=== PATIENT | female | born 1990 | race Caucasian/White ===

== ENCOUNTER 2016-08-11 16:41 | Outpatient (CLI) | payer OTHER ==
[2016-08-11 17:48] VITALS: BP 138/70; PULSE 99; RESP 20; TEMP 36.4
--- NOTE | 2016-08-13 08:40 | P.MSEPDOC ---
Presenting Problems - Arrival Data Date of Arrival on Unit: 08/11/16 Time of Arrival on Unit: 16:41 Mode of Transport: Wheelchair - Complaint OB-Reason for Admission/Chief Complaint: Possible Onset of Labor, Headache Medical History - Information : 2 Para: 1 Term: 1 : 0 Abortions: Spontaneous or Elective: 0 Number of Living Children: 1 - Gestational Age Expected Date of Delivery: 09/11/16 Gestational Age by MIREILLE (wks/days): 35 Weeks and 6 Days Review of Systems - Review of Systems Constitutional: No problems Breast: No problems ENT: No problems Cardiovascular: No problems Respiratory: No problems Gastrointestinal: No problems Genitourinary: No problems Musculoskeletal: No problems Neurological: No problems Skin: No problems Vital Signs - Temperature Temperature: 36.4 F Temperature Source: Skin - Pulse Brachial Pulse Rate: 99 - Respirations Respiratory Rate: 20 Oxygen Delivery Method: Room Air O2 Sat by Pulse Oximetry: 98 - Blood Pressure Right Arm Blood Pressure: 138/70 Blood Pressure Mean: 92 Blood Pressure Source: Automatic Cuff Medical Screen Scoring (Pre) - Cervical Exam Dilation: 0 cm = 0 Membranes: Intact - Uterine Contractions Frequency: > 5 minutes apart = 1 Duration: N/A Intensity: N/A - Maternal Vital Signs Maternal Temperature: N/A Maternal Blood Pressure: N/A Signs of Preeclampsia: Headache = 1 Maternal Respirations: N/A - Maternal Trauma Maternal Trauma: N/A - Assessment Baseline FHR: 140 Heart Rate - NICHD Category: Category I (Normal) = 0 - Total Score Total Score (Pre): 2 - Level of Risk Level of Risk: Low (0-5) Medical Screen Scoring (Post) - Cervical Exam Dilation: 0 cm = 0 Membranes: Intact - Uterine Contractions Frequency: > 5 minutes apart = 1 - Maternal Vital Signs Maternal Temperature: N/A Maternal Blood Pressure: N/A Signs of Preeclampsia: Headache = 1 Maternal Respirations: N/A - Maternal Trauma Maternal Trauma: N/A - Assessment Heart Rate - NICHD Category: Category I (Normal) = 0 NST: Reactive - Total Score Total Score (Post): 2 - Post Treatment Level of Risk Post Treatment Level of Risk: Low (0-5) Physician Notification (Post) - Physician Notified Physician Notified Date: 08/11/16 Physician Notified Time: 18:30 Physician/Practitioner Notified:: Dr Pretty Spoke With: Dr Pretty New Order Received: (August discharge home with follow up this week with Dr Aguilera) - Notification Comment Comment: Pt encouraged to hydrate and eat something- states hasn't eaten anything but a cucumber all day Disposition - Disposition OB Disposition: Triage, Discharge to home, Written follow up instructions reviewed Discharge Date: 08/11/16 Discharge Time: 18:50 I agree with the RN Medical Screening Exam: Yes Risk & Benefit of care provided described in d/c instruction: Yes Diagnosis: FALSE LABOR BEFORE 37 COMPLETED WEEKS OF GEST, THIRD TRI
== END 2016-08-11 18:50 | disposition home or self-care (01) ==
LOC: FBPOP 16:41
PROVIDERS: ATTEND Obstetrics & Gynecology
DX: O47.03 False labor before 37 completed weeks of gestation, third trimester (principal); Z3A.35 35 weeks gestation of pregnancy
CPT/HCPCS: 59025; G0463; 99213

== ENCOUNTER 2016-10-09 00:43 | Emergency (ER) | payer OTHER ==
[2016-10-09 00:47] VITALS: RESP 18
--- NOTE | 2016-10-09 01:22 | ED ---
General Adult HPI - General Chief complaint: Urogenital Stated complaint: back pain Time Seen by Provider: 10/09/16 01:01 Source: patient, RN notes reviewed Mode of arrival: ambulatory Limitations: no limitations - History of Present Illness Initial comments: this a 26-year-old female presents emergency Department chief complaint of urinary frequency, dysuria and low back pain. Patient states this seemed start on Friday and worsen. Patient states prior to that she was being treated for partial vaginosis which was diagnosed by her LABORER on her 6 week follow-up. Patient's had no fever, chills. Patient has a nausea, vomiting diarrhea constipation. Patient states she has had recurrent urinary tract infections and seems somewhat at this time. - Related Data Previous Rx's Medication Instructions Recorded Cephalexin [Keflex] 500 mg PO Q8HR #21 cap 10/09/16 Allergies Allergy/AdvReac Type Severity Reaction Status Date / Time No Known Allergies Allergy Verified 10/09/16 00:47 Review of Systems ROS Statement: Those systems with pertinent positive or pertinent negative responses have been documented in the HPI. ROS Other: All systems not noted in ROS Statement are negative. Past Medical History Past Medical History: No Reported History History of Any Multi-Drug Resistant Organisms: None Reported Past Surgical History: Cholecystectomy Past Psychological History: Anxiety Smoking Status: Former smoker General Exam Limitations: no limitations General appearance: alert, in no apparent distress Respiratory exam: Present: normal lung sounds bilaterally. Absent: respiratory distress, wheezes, rales, rhonchi, stridor Cardiovascular Exam: Present: regular rate, normal rhythm, normal heart sounds. Absent: systolic murmur, diastolic murmur, rubs, gallop, clicks GI/Abdominal exam: Present: soft, normal bowel sounds. Absent: distended, tenderness, guarding, rebound, rigid Back exam: Absent: CVA tenderness (R), CVA tenderness (L) Neurological exam: Present: alert, oriented X3, CN II-XII intact Skin exam: Present: warm, dry, intact, normal color. Absent: rash Course Vital Signs 10/09/16 00:45 Temperature 98.0 F Pulse Rate 83 Respiratory 18 Rate Blood Pressure 116/79 O2 Sat by Pulse 95 Oximetry Medical Decision Making - Medical Decision Making 26-year-old female presented emergency department for urinary frequency dysuria. Patient has UTI. Patient was placed on Keflex return parameters were discussed. Urine culture was performed. - Lab Data Lab Results 10/09/16 10/09/16 Range/Units 00:49 00:49 Urine Color Yellow Urine Appearance Turbid H (Clear) Urine pH 6.0 (5.0-8.0) Ur Specific [place] 1.013 (1.001-1.035) Urine Protein 2+ H (Negative) Urine Glucose (UA) Negative (Negative) Urine Ketones Negative (Negative) Urine Blood Moderate H (Negative) Urine Nitrite Negative (Negative) Urine Bilirubin Negative (Negative) Urine Urobilinogen <2.0 (<2.0) mg/dL Ur Leukocyte Esterase Large H (Negative) Urine RBC 73 H (0-5) /hpf Urine WBC >182 H (0-5) /hpf Urine WBC Clumps Few H (None) /hpf Ur Squamous Epith Cells 5 H (0-4) /hpf Urine Bacteria Rare H (None) /hpf Urine HCG, Qual Not Detected (Not Detectd) Disposition Clinical Impression: Urinary tract infection Disposition: HOME SELF-CARE Condition: Stable Instructions: Urinary Tract Infection in Women (ED) Additional Instructions: Please return to the Emergency Department if symptoms worsen or any other concerns. Prescriptions: Cephalexin [Keflex] 500 mg PO Q8HR #21 cap Referrals: None,Stated [Primary Care Provider] - 1-2 days Time of Disposition: 01:42
[2016-10-09 01:31] LABS: Appearance,Urine Turbid (Clear); Bacteria,Urine Rare /hpf; Bilirubin,Urine Negative (Negative); Glucose,Urine (UA) Negative (Negative); Ketones,Urine Negative (Negative); Leukocyte Esterase,Urine Large (Negative); Nitrite,Urine Negative (Negative); Particle Count 5304; Protein,Urine 2+ (Negative); RBC,Urine 73 /hpf (0-5); Specific Gravity,Urine 1.013 (1.001-1.035); Squamous Epithelial Cell,Urine 5 /hpf (0-4); UA Billing (MACRO vs. MICRO) MICRO; Urobilinogen,Urine <2.0 mg/dL (<2.0); WBC,Urine >182 /hpf (0-5)
[2016-10-09] MEDS ORDERED: CEPHALEXIN 500 MG CAP PO STA (01:43)
[2016-10-09 02:05] VITALS: BP 113/71; PULSE 82; TEMP 98.8
== END 2016-10-09 02:05 | disposition home or self-care (01) ==
LOC: EC 00:43
DX: N39.0 Urinary tract infection, site not specified (principal); K59.00 Constipation, unspecified; R11.2 Nausea with vomiting, unspecified; R19.7 Diarrhea, unspecified; Z87.891 Personal history of nicotine dependence
CPT/HCPCS: 81001; 81025; 87077; 87086; 87186; 99283

== ENCOUNTER 2017-11-26 21:14 | Emergency (ER) | payer OTHER ==
--- NOTE | 2017-11-26 22:46 | ED ---
General Adult HPI - General Chief complaint: Allergic Reaction Stated complaint: bee sting Time Seen by Provider: 11/26/17 21:47 Source: patient, RN notes reviewed Mode of arrival: ambulatory Limitations: no limitations - History of Present Illness Initial comments: 27-year-old female presents to the emergency department for a chief complaint of bug bite 2 days. Patient states she was stung by a bee 2 days ago on her left fourth digit. Patient states she did experience shortness of breath for about 20 minutes last night but took a Benadryl which resolved his shortness of breath. Patient has not experienced any other shortness of breath since that time. Patient states she came to the emergency department because she has erythema of the left fourth digit. Patient states she thinks it is getting infected. Patient denies fevers or chills at home. Patient states it is somewhat painful but she can move her hand. Patient has no other complaints at this time including shortness of breath, chest pain, abdominal pain, nausea or vomiting, headache, or visual changes. - Related Data Previous Rx's Medication Instructions Recorded Cephalexin [Keflex] 500 mg PO Q8HR #21 cap 10/09/ Cephalexin [Keflex] 500 mg PO Q6H 10 Days cap 11/26/17 Allergies Allergy/AdvReac Type Severity Reaction Status Date / Time No Known Allergies Allergy Verified 11/26/17 21:28 Review of Systems ROS Statement: Those systems with pertinent positive or pertinent negative responses have been documented in the HPI. ROS Other: All systems not noted in ROS Statement are negative. Past Medical History Past Medical History: No Reported History Additional Past Medical History / Comment(s): miscarriage History of Any Multi-Drug Resistant Organisms: None Reported Past Surgical History: Cholecystectomy Past Psychological History: Anxiety Smoking Status: Former smoker General Exam Limitations: no limitations General appearance: alert, in no apparent distress Head exam: Present: atraumatic, normocephalic, normal inspection Eye exam: Present: normal appearance. Absent: scleral icterus, conjunctival injection ENT exam: Present: normal exam, mucous membranes moist Neck exam: Present: normal inspection. Absent: tenderness, meningismus, lymphadenopathy Respiratory exam: Present: normal lung sounds bilaterally. Absent: respiratory distress, wheezes, rales, rhonchi, stridor Cardiovascular Exam: Present: regular rate, normal rhythm, normal heart sounds. Absent: systolic murmur, diastolic murmur, rubs, gallop, clicks Extremities exam: Present: tenderness (Mild tenderness over the dorsal left fourth digit), normal capillary refill (Capillary refill less than 2 seconds and radial pulse 2+ in the left upper extremity), other (Patient has erythema of the dorsal left hand fourth digit extending about 2 cm past the MCP joint both distally and proximally. No abscess is noted. No streaking redness.). Absent: full ROM (Patient has about 45 flexion of the digits in the left hand, full extension.) Course Vital Signs 11/26/17 21:25 Temperature 98.3 F Pulse Rate 80 Respiratory 16 Rate Blood Pressure 120/84 O2 Sat by Pulse 100 Oximetry Medical Decision Making - Medical Decision Making 27-year-old female presents to the emergency department for a chief complaint of erythema of the left fourth digit x 1 day. Patient was stung by a bee 2 days ago and noticed the redness today. On exam there is erythema of the fourth left MCP area. No streaking redness. Erythema is likely a cellulitis. Patient is able to flex to 45 degrees and full extension. No tenderness of the flexor tendons or evidence of tenosynovitis. Patient will be treated with Keflex. Area was marked with a marker. She is to follow up with primary care in 1-2 days. She is to return to the emergency Department if redness continues to spread which she is aware of. Disposition Clinical Impression: Cellulitis and abscess of finger, unspecified Disposition: HOME SELF-CARE Condition: Good Instructions: Cellulitis (ED) Prescriptions: Cephalexin [Keflex] 500 mg PO Q6H 10 Days cap Is patient prescribed a controlled substance at d/c from ED?: No Referrals: Paulie Guerrero MD [STAFF PHYSICIAN] - 1-2 days Time of Disposition: 22:45
[2017-11-26 23:40] VITALS: BP 126/78; PULSE 85; RESP 20; TEMP 98.1
== END 2017-11-26 23:40 | disposition home or self-care (01) ==
LOC: EC 21:14
DX: T63.441A Toxic effect of venom of bees, accidental (unintentional), initial encounter (principal); L03.012 Cellulitis of left finger; L02.512 Cutaneous abscess of left hand; Z87.891 Personal history of nicotine dependence
CPT/HCPCS: 99283

== ENCOUNTER 2018-09-02 17:12 | Emergency (ER) | payer OTHER ==
[2018-09-02 18:11] VITALS: RESP 16
[2018-09-02] MEDS ORDERED: SODIUM CHLORIDE 0.9% 1,000 ML IV STA (19:11)
[2018-09-02] MEDS ORDERED: METOCLOPRAMIDE 5 MG/ML 2 ML VIAL IVP STA (19:11)
[2018-09-02] MEDS ORDERED: diphenhydrAMINE 50 MG/ML 1 ML VIAL IVP STA (19:11)
--- NOTE | 2018-09-02 19:36 | ED ---
Nausea/Vomiting/Diarrhea HPI - General Chief complaint: Nausea/Vomiting/Diarrhea Stated complaint: Vomitng x3 days Time Seen by Provider: 09/02/18 18:30 Source: patient Mode of arrival: ambulatory Limitations: no limitations - History of Present Illness Initial comments: 28-year-old female patient presents to the emergency department today for a 3 day history of nausea and vomiting. Patient states that she has been feeling shaky, fatigued, and quite nauseous. Patient states she did have an episode of vomiting in the morning. States she hasn't eaten or drank anything all day. Denies any abdominal pain or diarrhea. Patient is concerned she may be . She is , with one miscarriage last year. She denies any abnormal vaginal bleeding or discharge. 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 Patient does admit that she stopped taking her Abilify and Valium one week ago for possibility of is unsure she may be having withdrawal symptoms from this. She denies any fever or chills. Denies any sick contacts or recent travel. Patient denies any recent rash, shortness breath, chest pain, back pain, numbness, tingling, dizziness, weakness, hematuria, dysuria, urinary urgency, urinary frequency, headache, visual changes, or any other complaints. - Related Data Previous Rx's Medication Instructions Recorded Cephalexin [Keflex] 500 mg PO Q8HR #21 cap 10/09/16 Cephalexin [Keflex] 500 mg PO Q6H 10 Days cap 11/26/17 Cephalexin [Keflex] 500 mg PO Q6HR 3 Days #12 cap 09/02/18 Metoclopramide [Reglan] 10 mg PO Q8H PRN #10 tab 09/02/18 Pnv No.95/Ferrous Fum/Folic AC 1 each PO DAILY #30 tablet 09/02/18 [ Multivitamin Tablet] Allergies Allergy/AdvReac Type Severity Reaction Status Date / Time No Known Allergies Allergy Verified 09/02/18 18:11 Review of Systems ROS Statement: Those systems with pertinent positive or pertinent negative responses have been documented in the HPI. ROS Other: All systems not noted in ROS Statement are negative. Past Medical History Past Medical History: No Reported History Additional Past Medical History / Comment(s): miscarriage History of Any Multi-Drug Resistant Organisms: None Reported Past Surgical History: Cholecystectomy Past Psychological History: Anxiety Smoking Status: Former smoker General Exam Limitations: no limitations General appearance: alert, in no apparent distress, other (Physical well- developed, well-nourished adult female patient in no acute distress. Vital signs upon presentation are temperature 98.9F, pulse 86, respirations 16, blood pressure 120/84, pulse ox 98% on room air.) Eye exam: Present: normal appearance, PERRL, EOMI. Absent: scleral icterus, conjunctival injection, periorbital swelling ENT exam: Present: normal exam, normal oropharynx, mucous membranes moist Respiratory exam: Present: normal lung sounds bilaterally. Absent: respiratory distress, wheezes, rales, rhonchi, stridor Cardiovascular Exam: Present: regular rate, normal rhythm, normal heart sounds. Absent: systolic murmur, diastolic murmur, rubs, gallop, clicks GI/Abdominal exam: Present: soft, normal bowel sounds. Absent: distended, tenderness, guarding, rebound, rigid Neurological exam: Present: alert, oriented X3, CN II-XII intact Psychiatric exam: Present: normal affect, normal mood Skin exam: Present: warm, dry, intact, normal color. Absent: rash Course Vital Signs 09/02/18 18:08 Temperature 98.9 F Pulse Rate 86 Respiratory 16 Rate Blood Pressure 120/84 O2 Sat by Pulse 98 Oximetry Medical Decision Making - Medical Decision Making 38-year-old female patient presents to the emergency department today for evaluation of nausea and vomiting for the last 3 days. Physical examination reveals a soft nontender abdomen. Vital signs are stable. Labs reviewed and were unremarkable. Patient did test positive for . There is bacteria in the urine. She'll be treated with Keflex for 3 days. She'll be given vitamins and Reglan for symptom relief. She is instructed to start with clear liquid diet and advance as tolerated. She is instructed to follow-up with [facility] for recheck as soon as possible, she does have an appointment at [facility] on 09/15/2018. She denies any vaginal bleeding or discharge. Did add an hCG Quant just for documentation purposes. We did discuss return parameters in detail. She verbalizes understanding and agrees with this plan. - Lab Data Result diagrams: 09/02/18 20:03 09/02/18 20:03 Lab Results 09/02/18 09/02/18 09/02/18 Range/Units 20:03 20:03 20:03 WBC 9.0 (3.8-10.6) k/uL RBC 4.91 (3.80-5.40) m/uL Hgb 14.3 (11.4-16.0) gm/dL Hct 43.0 (34.0-46.0) % MCV 87.6 (80.0-100.0) fL MCH 29.2 (25.0-35.0) pg MCHC 33.3 (31.0-37.0) g/dL RDW 13.0 (11.5-15.5) % Plt Count 217 (150-450) k/uL Neutrophils % 67 % Lymphocytes % 26 % Monocytes % 4 % Eosinophils % 2 % Basophils % 0 % Neutrophils # 6.0 (1.3-7.7) k/uL Lymphocytes # 2.4 (1.0-4.8) k/uL Monocytes # 0.4 (0-1.0) k/uL Eosinophils # 0.1 (0-0.7) k/uL Basophils # 0.0 (0-0.2) k/uL Sodium 138 (137-145) mmol/L Potassium 4.4 (3.5-5.1) mmol/L Chloride 106 (98-107) mmol/L Carbon Dioxide 20 L (22-30) mmol/L Anion Gap 12 mmol/L BUN 13 (7-17) mg/dL Creatinine 0.52 (0.52-1.04) mg/dL Est GFR (CKD-EPI)AfAm >90 (>60 ml/min/1.73 sqM) Est GFR (CKD-EPI)NonAf >90 (>60 ml/min/1.73 sqM) Glucose 76 (74-99) mg/dL Calcium 10.1 (8.4-10.2) mg/dL Total Bilirubin 1.1 (0.2-1.3) mg/dL AST 24 (14-36) U/L ALT 10 (9-52) U/L Alkaline Phosphatase 54 (38-126) U/L Total Protein 8.0 (6.3-8.2) g/dL Albumin 5.0 (3.5-5.0) g/dL Amylase 81 (30-110) U/L Lipase 230 (23-300) U/L Urine Color Yellow Urine Appearance Cloudy H (Clear) Urine pH 6.0 (5.0-8.0) Ur Specific [place] 1.022 (1.001-1.035) Urine Protein Negative (Negative) Urine Glucose (UA) Negative (Negative) Urine Ketones 2+ H (Negative) Urine Blood Negative (Negative) Urine Nitrite Negative (Negative) Urine Bilirubin Negative (Negative) Urine Urobilinogen <2.0 (<2.0) mg/dL Ur Leukocyte Esterase Large H (Negative) Urine RBC <1 (0-5) /hpf Urine WBC 3 (0-5) /hpf Ur Squamous Epith Cells 8 H (0-4) /hpf Urine Bacteria Moderate H (None) /hpf Urine Mucus Rare H (None) /hpf Urine HCG, Qual (Not Detectd) 09/02/18 Range/Units 20:03 WBC (3.8-10.6) k/uL RBC (3.80-5.40) m/uL Hgb (11.4-16.0) gm/dL Hct (34.0-46.0) % MCV (80.0-100.0) fL MCH (25.0-35.0) pg MCHC (31.0-37.0) g/dL RDW (11.5-15.5) % Plt Count (150-450) k/uL Neutrophils % % Lymphocytes % % Monocytes % % Eosinophils % % Basophils % % Neutrophils # (1.3-7.7) k/uL Lymphocytes # (1.0-4.8) k/uL Monocytes # (0-1.0) k/uL Eosinophils # (0-0.7) k/uL Basophils # (0-0.2) k/uL Sodium (137-145) mmol/L Potassium (3.5-5.1) mmol/L Chloride (98-107) mmol/L Carbon Dioxide (22-30) mmol/L Anion Gap mmol/L BUN (7-17) mg/dL Creatinine (0.52-1.04) mg/dL Est GFR (CKD-EPI)AfAm (>60 ml/min/1.73 sqM) Est GFR (CKD-EPI)NonAf (>60 ml/min/1.73 sqM) Glucose (74-99) mg/dL Calcium (8.4-10.2) mg/dL Total Bilirubin (0.2-1.3) mg/dL AST (14-36) U/L ALT (9-52) U/L Alkaline Phosphatase (38-126) U/L Total Protein (6.3-8.2) g/dL Albumin (3.5-5.0) g/dL Amylase (30-110) U/L Lipase (23-300) U/L Urine Color Urine Appearance (Clear) Urine pH (5.0-8.0) Ur Specific [place] (1.001-1.035) Urine Protein (Negative) Urine Glucose (UA) (Negative) Urine Ketones (Negative) Urine Blood (Negative) Urine Nitrite (Negative) Urine Bilirubin (Negative) Urine Urobilinogen (<2.0) mg/dL Ur Leukocyte Esterase (Negative) Urine RBC (0-5) /hpf Urine WBC (0-5) /hpf Ur Squamous Epith Cells (0-4) /hpf Urine Bacteria (None) /hpf Urine Mucus (None) /hpf Urine HCG, Qual Detected (Not Detectd) Disposition Clinical Impression: , Vomiting Disposition: HOME SELF-CARE Condition: Good Instructions (If sedation given, give patient instructions): (ED), Acute Nausea and Vomiting (ED) Additional Instructions: Increase fluids. Take medications as directed. Complete antibiotic prescription in full to clear bacteria from the urine. Follow-up with [facility]QUIPMENT [facility]ST[facility] for recheck as soon as possible. Return to the emergency department immediately for any new, worsening, or concerning symptoms. Prescriptions: Cephalexin [Keflex] 500 mg PO Q6HR 3 Days #12 cap Pnv No.95/Ferrous Fum/Folic AC [ Multivitamin Tablet] 1 each PO DAILY #30 tablet Metoclopramide [Reglan] 10 mg PO Q8H PRN #10 tab PRN Reason: Vomiting Is patient prescribed a controlled substance at d/c from ED?: No Referrals: Grupo Grover DO [Doctor of Osteopathic Medicine] - 1-2 days Time of Disposition: 21:17
[2018-09-02 20:18] LABS: Basophils % (A) 0 %; Eosinophils # (A) 0.1 k/uL (0-0.7); Eosinophils % (A) 2 %; HGB 14.3 gm/dL (11.4-16.0); Lymphocytes # (A) 2.4 k/uL (1.0-4.8); Lymphocytes % (A) 26 %; MCH 29.2 pg (25.0-35.0); MCHC 33.3 g/dL (31.0-37.0); MCV 87.6 fL (80.0-100.0); Mean Platelet Volume 7.5; Monocytes # (A) 0.4 k/uL (0-1.0); Monocytes % (A) 4 %; Neutrophils % (A) 67 %; Platelet Count 217 k/uL (150-450); RBC 4.91 m/uL (3.80-5.40)
[2018-09-02 20:24] LABS: Appearance,Urine Cloudy (Clear); Bacteria,Urine Moderate /hpf; Bilirubin,Urine Negative (Negative); Blood,Urine Negative (Negative); Color,Urine Yellow; Glucose,Urine (UA) Negative (Negative); Ketones,Urine 2+ (Negative); Leukocyte Esterase,Urine Large (Negative); Mucus,Urine Rare /hpf; Nitrite,Urine Negative (Negative); Protein,Urine Negative (Negative); RBC,Urine <1 /hpf (0-5); Specific Gravity,Urine 1.022 (1.001-1.035); Squamous Epithelial Cell,Urine 8 /hpf (0-4); Urobilinogen,Urine <2.0 mg/dL (<2.0); WBC,Urine 3 /hpf (0-5)
[2018-09-02 20:27] LABS: ALT 10 U/L (9-52); AST 24 U/L (14-36); Alkaline Phosphatase 54 U/L (38-126); Amylase 81 U/L (30-110); Anion Gap 12 mmol/L; Blood Urea Nitrogen 13 mg/dL (7-17); Calcium 10.1 mg/dL (8.4-10.2); Carbon Dioxide 20 mmol/L (22-30); Chloride 106 mmol/L (98-107); Glucose 76 mg/dL (74-99); Lipase 230 U/L (23-300); Potassium 4.4 mmol/L (3.5-5.1); Sodium 138 mmol/L (137-145); Total Bilirubin 1.1 mg/dL (0.2-1.3)
[2018-09-02] MEDS ORDERED: CEPHALEXIN 500MG STARTER PACK 4 CAP BTL PO STA (21:12)
[2018-09-02 21:44] VITALS: BP 117/80; PULSE 81; TEMP 98.7
== END 2018-09-02 21:43 | disposition home or self-care (01) ==
LOC: EC 17:12
DX: O21.9 Vomiting of pregnancy, unspecified (principal); O99.89 Other specified diseases and conditions complicating pregnancy, childbirth and the puerperium; R82.71 Bacteriuria; Z3A.00 Weeks of gestation of pregnancy not specified; Z90.49 Acquired absence of other specified parts of digestive tract; Z87.891 Personal history of nicotine dependence
CPT/HCPCS: 36415; 80053; 82150; 83690; 85025; 81001; 81025; 84702; 87086; 99284; 96374; 96375; 96361; J1200; J2765

== ENCOUNTER → 2018-09-15 | Outpatient (CLI) | payer OTHER ==
--- NOTE | 2018-09-15 13:56 | US ---
EXAMINATION TYPE: Transabdominal DATE OF EXAM: 09/15/2018 1:17 PM COMPARISON: NONE CLINICAL HISTORY: Z36 Encounter for screening of mother. Confirm dates EXAM PERFORMED: Transabdominal (TA) EXAM MEASUREMENTS: GESTATIONAL AGE / DATING Physician Established: Not yet established Dates by LMP: (7 weeks/0 days) EDC: 05/04/19 Dates by First Scan: No previous this is first scan Dates by Current Scan for: (6 weeks/6 days) EDC: 05/05/19 MATERNAL ANATOMY Uterus: 8.3 x 5.1 x 5.6cm Right Ovary: 2.0 x 2.1 x 1.5cm Left Ovary: 3.1 x 1.7 x 1.4cm Post CDS / Adnexa: appears wnl Presence of free fluid: no GESTATION / SURVEY CRL: 0.9cm (6 weeks/6 days) Yolk Sac (normal less than 6mm): 0.4cm Heart Rate: 152 bpm Rhythm: Normal IUP: Viable IUP Date of LMP: 07/28/18 Beta HcG (if available): Not available at this time Single viable IUP 6wks/6days with MIREILLE of 05/05/19 IMPRESSION: Single viable intrauterine corresponding to an ultrasound age of 6 weeks 6 days with estima hannah date of delivery 05/05/2019 by today's exam.
== END ==
LOC: RADUSWWP 12:48
PROVIDERS: ATTEND Obstetrics & Gynecology
DX: Z36.89 Encounter for other specified antenatal screening (principal); Z3A.01 Less than 8 weeks gestation of pregnancy
CPT/HCPCS: 76801

== ENCOUNTER 2018-10-17 16:52 | Observation (INO) | payer OTHER ==
[2018-10-17] MEDS ORDERED: SODIUM CHLORIDE 0.9% 1,000 ML IV STA (17:22)
--- NOTE | 2018-10-17 17:25 | ED ---
General Adult HPI - General Chief complaint: Syncope Stated complaint: DIZZINESS Time Seen by Provider: 10/17/18 17:09 Source: patient, EMS, RN notes reviewed, old records reviewed Limitations: no limitations - History of Present Illness Initial comments: 28-year-old female presenting for evaluation of syncopal episode. Patient is currently approximately 12 weeks gestation. She's had some morning sickness and nausea with this . She states for the past several days his had improved. Today she had woke up and had the first meal of the day in the late afternoon. She had had some some Gatorade but had not been drinking much water. She felt very faint, lightheaded. She was caught by her and had a syncopal episode. She regained consciousness and had some diffuse numbness and tingling of both hands both feet. This has resolved. There is no injury with the fall. No abdominal pain. No vaginal bleeding. No abdominal trauma. No headache. No shortness of breath. No cough or URI symptoms. No dysuria. - Related Data Home Medications Medication Instructions Recorded Confirmed Pnv No.95/Ferrous Fum/Folic AC 1 tab PO DAILY 10/17/18 10/17/18 [ Multivitamin Tablet] Allergies Allergy/AdvReac Type Severity Reaction Status Date / Time No Known Allergies Allergy Verified 10/17/18 17:40 Review of Systems ROS Statement: Those systems with pertinent positive or pertinent negative responses have been documented in the HPI. ROS Other: All systems not noted in ROS Statement are negative. Past Medical History Past Medical History: No Reported History Additional Past Medical History / Comment(s): miscarriage History of Any Multi-Drug Resistant Organisms: None Reported Past Surgical History: Cholecystectomy Past Psychological History: Anxiety Smoking Status: Former smoker Past Alcohol Use History: None Reported Past Drug Use History: None Reported General Exam Limitations: no limitations General appearance: alert, in no apparent distress Head exam: Present: atraumatic, normocephalic Eye exam: Present: normal appearance, PERRL ENT exam: Present: mucous membranes dry Neck exam: Present: normal inspection. Absent: tenderness, meningismus Respiratory exam: Present: normal lung sounds bilaterally. Absent: respiratory distress, wheezes, rales Cardiovascular Exam: Present: regular rate. Absent: normal rhythm GI/Abdominal exam: Present: soft. Absent: distended, tenderness, guarding Extremities exam: Present: normal inspection, normal capillary refill. Absent: pedal edema, calf tenderness Neurological exam: Present: alert, oriented X3, CN II-XII intact. Absent: motor sensory deficit Psychiatric exam: Present: normal affect, normal mood Skin exam: Present: warm, dry, intact. Absent: cyanosis, diaphoretic Course Vital Signs 10/17/18 10/17/18 10/17/18 17:03 18:05 18:20 Temperature 99.4 F Pulse Rate 80 Pulse Rate [ 79 Cutter Tender ] Respiratory 16 16 Rate Blood Pressure 110/64 O2 Sat by Pulse 99 Oximetry EKG Findings - EKG Comments: EKG Findings:: Sinus rhythm with sinus arrhythmia, no ST segment elevation. Rate of 72, NH interval 132, QRS duration 88, QTC 453. Medical Decision Making - Medical Decision Making 28-year-old female presenting with dehydration and syncope. Currently approximately 12 weeks . She has no abdominal pain, no vaginal bleeding, no abdominal trauma. heart tones are obtained in the emergency department these are normal at 160. Patient does have normal CBC, normal CMP, urinalysis showing asymptomatic bacteriuria with 5 leukocytes. Culture is obtained. Patient started on Keflex. After initial fluid bolus, patient is feeling somewhat better but blood pressure is 92 systolic and she is given additional fluid, will be kept in observation for continued fluid resuscitation. - Lab Data Result diagrams: 10/17/18 17:20 10/17/18 17:20 Lab Results 10/17/18 10/17/18 10/17/18 Range/Units 17:20 17:20 17:20 WBC 6.7 (3.8-10.6) k/uL RBC 4.33 (3.80-5.40) m/uL Hgb 12.8 (11.4-16.0) gm/dL Hct 36.5 (34.0-46.0) % MCV 84.4 (80.0-100.0) fL MCH 29.7 (25.0-35.0) pg MCHC 35.1 (31.0-37.0) g/dL RDW 14.4 (11.5-15.5) % Plt Count 158 (150-450) k/uL Neutrophils % 75 % Lymphocytes % 19 % Monocytes % 4 % Eosinophils % 1 % Basophils % 0 % Neutrophils # 5.0 (1.3-7.7) k/uL Lymphocytes # 1.3 (1.0-4.8) k/uL Monocytes # 0.3 (0-1.0) k/uL Eosinophils # 0.0 (0-0.7) k/uL Basophils # 0.0 (0-0.2) k/uL PT (9.0-12.0) sec INR (<1.2) APTT (22.0-30.0) sec Sodium 139 (137-145) mmol/L Potassium 3.5 (3.5-5.1) mmol/L Chloride 107 (98-107) mmol/L Carbon Dioxide 21 L (22-30) mmol/L Anion Gap 11 mmol/L BUN 8 (7-17) mg/dL Creatinine 0.47 L (0.52-1.04) mg/dL Est GFR (CKD-EPI)AfAm >90 (>60 ml/min/1.73 sqM) Est GFR (CKD-EPI)NonAf >90 (>60 ml/min/1.73 sqM) Glucose 114 H (74-99) mg/dL Calcium 9.2 (8.4-10.2) mg/dL Magnesium 1.8 (1.6-2.3) mg/dL Total Bilirubin 0.6 (0.2-1.3) mg/dL AST 22 (14-36) U/L ALT 19 (9-52) U/L Alkaline Phosphatase 38 (38-126) U/L Troponin I (0.000-0.034) ng/mL Total Protein 6.1 L (6.3-8.2) g/dL Albumin 3.6 (3.5-5.0) g/dL HCG, Quant 60177.2 mIU/mL Urine Color Urine Appearance (Clear) Urine pH (5.0-8.0) Ur Specific [place] (1.001-1.035) Urine Protein (Negative) Urine Glucose (UA) (Negative) Urine Ketones (Negative) Urine Blood (Negative) Urine Nitrite (Negative) Urine Bilirubin (Negative) Urine Urobilinogen (<2.0) mg/dL Ur Leukocyte Esterase (Negative) Urine WBC (0-5) /hpf Ur Squamous Epith Cells (0-4) /hpf Urine Bacteria (None) /hpf Urine Mucus (None) /hpf Blood Type O Positive Blood Type Recheck No 10/17/18 10/17/18 10/17/18 Range/Units 17:20 17:20 17:20 WBC (3.8-10.6) k/uL RBC (3.80-5.40) m/uL Hgb (11.4-16.0) gm/dL Hct (34.0-46.0) % MCV (80.0-100.0) fL MCH (25.0-35.0) pg MCHC (31.0-37.0) g/dL RDW (11.5-15.5) % Plt Count (150-450) k/uL Neutrophils % % Lymphocytes % % Monocytes % % Eosinophils % % Basophils % % Neutrophils # (1.3-7.7) k/uL Lymphocytes # (1.0-4.8) k/uL Monocytes # (0-1.0) k/uL Eosinophils # (0-0.7) k/uL Basophils # (0-0.2) k/uL PT 10.0 (9.0-12.0) sec INR 0.9 (<1.2) APTT 22.3 (22.0-30.0) sec Sodium (137-145) mmol/L Potassium (3.5-5.1) mmol/L Chloride (98-107) mmol/L Carbon Dioxide (22-30) mmol/L Anion Gap mmol/L BUN (7-17) mg/dL Creatinine (0.52-1.04) mg/dL Est GFR (CKD-EPI)AfAm (>60 ml/min/1.73 sqM) Est GFR (CKD-EPI)NonAf (>60 ml/min/1.73 sqM) Glucose (74-99) mg/dL Calcium (8.4-10.2) mg/dL Magnesium (1.6-2.3) mg/dL Total Bilirubin (0.2-1.3) mg/dL AST (14-36) U/L ALT (9-52) U/L Alkaline Phosphatase (38-126) U/L Troponin I <0.012 (0.000-0.034) ng/mL Total Protein (6.3-8.2) g/dL Albumin (3.5-5.0) g/dL HCG, Quant mIU/mL Urine Color Yellow Urine Appearance Cloudy H (Clear) Urine pH 8.0 (5.0-8.0) Ur Specific [place] 1.017 (1.001-1.035) Urine Protein Trace H (Negative) Urine Glucose (UA) Negative (Negative) Urine Ketones Negative (Negative) Urine Blood Negative (Negative) Urine Nitrite Negative (Negative) Urine Bilirubin Negative (Negative) Urine Urobilinogen 2.0 (<2.0) mg/dL Ur Leukocyte Esterase Small H (Negative) Urine WBC 5 (0-5) /hpf Ur Squamous Epith Cells 6 H (0-4) /hpf Urine Bacteria Occasional H (None) /hpf Urine Mucus Occasional H (None) /hpf Blood Type Blood Type Recheck Disposition Clinical Impression: Dehydration, Syncope, Asymptomatic bacteriuria during Disposition: ADMITTED IP TO THIS [facility] Condition: Stable Is patient prescribed a controlled substance at d/c from ED?: No Referrals: Grupo Grover DO [Primary Care Provider] - 1-2 days Decision to Admit Reason: Admit from EC Decision Date: 10/17/18 Decision Time: 19:38
[2018-10-17 17:51] LABS: ALT 19 U/L (9-52); AST 22 U/L (14-36); African American GFR (CKD) >90 (>60 ml/min/1.73 sqM); Albumin 3.6 g/dL (3.5-5.0); Alkaline Phosphatase 38 U/L (38-126); Anion Gap 11 mmol/L; Blood Urea Nitrogen 8 mg/dL (7-17); Calcium 9.2 mg/dL (8.4-10.2); Carbon Dioxide 21 mmol/L (22-30); Chloride 107 mmol/L (98-107); Glucose 114 mg/dL (74-99); Magnesium 1.8 mg/dL (1.6-2.3); Potassium 3.5 mmol/L (3.5-5.1); Sodium 139 mmol/L (137-145); Total Bilirubin 0.6 mg/dL (0.2-1.3); Total Protein 6.1 g/dL (6.3-8.2)
[2018-10-17 17:53] LABS: INR 0.9 (<1.2); Partial Thromboplastin Time 22.3 sec (22.0-30.0)
[2018-10-17 18:03] LABS: Basophils % (A) 0 %; Eosinophils % (A) 1 %; HCT 36.5 % (34.0-46.0); HGB 12.8 gm/dL (11.4-16.0); Lymphocytes # (A) 1.3 k/uL (1.0-4.8); Lymphocytes % (A) 19 %; MCH 29.7 pg (25.0-35.0); MCHC 35.1 g/dL (31.0-37.0); MCV 84.4 fL (80.0-100.0); Mean Platelet Volume 7.9; Monocytes # (A) 0.3 k/uL (0-1.0); Monocytes % (A) 4 %; Neutrophils % (A) 75 %; Platelet Count 158 k/uL (150-450); RBC 4.33 m/uL (3.80-5.40); RDW 14.4 % (11.5-15.5); WBC 6.7 k/uL (3.8-10.6)
[2018-10-17 18:04] LABS: Appearance,Urine Cloudy (Clear); Bacteria,Urine Occasional /hpf; Bilirubin,Urine Negative (Negative); Blood,Urine Negative (Negative); Color,Urine Yellow; Glucose,Urine (UA) Negative (Negative); Ketones,Urine Negative (Negative); Leukocyte Esterase,Urine Small (Negative); Mucus,Urine Occasional /hpf; Nitrite,Urine Negative (Negative); Protein,Urine Trace (Negative); Specific Gravity,Urine 1.017 (1.001-1.035); Squamous Epithelial Cell,Urine 6 /hpf (0-4); WBC,Urine 5 /hpf (0-5)
[2018-10-17 18:58] LABS: HCG,Quantitative Serum 65732.2 mIU/mL
[2018-10-17] MEDS ORDERED: SODIUM CHLORIDE 0.9% 1,000 ML IV ONE (19:32)
[2018-10-17] MEDS ORDERED: CEPHALEXIN 500 MG CAP PO STA (19:34)
[2018-10-17] MEDS ORDERED: NALOXONE 0.4 MG/ML 1 ML VIAL IV PRN (19:38)
[2018-10-17] MEDS: SODIUM CHLORIDE 0.9% 1,000 ML IV SCH (20:26)
--- NOTE | 2018-10-18 00:15 | P.HPIM ---
History of Present Illness H&P Date: 10/17/18 Chief Complaint: syncope 28-year-old female with no significant past medical history at 12 weeks Patient has been having morning sickness however improving overall she's been having poor by mouth intake recently. Patient has poor before meals conditioning at home she's been suffering from the humid hot weather. She hasn't been eating or drinking properly recently. She spent most of her day sleeping today wasn't getting hydrated well. She was feeling faint and tired decided to rest on her chest and then next thing she knows is her caught her as she passed out, patient denies any head injuries. However she felt both her hands and feet are numb after the syncopal episode. She reports few near syncope episodes recently. She was feeling slightly dizzy before she closed her eyes on her chest she was getting wheezy hot nauseated and felt her heart was pounding. She denies any irregular heartbeats. She denies any history of A. fib. However she reports that when she was younger she always noticed that she's getting palpitations she thought this is related to panic attacks and anxiety she got evaluated by cardiology when she was a child she had a monitor placed but was told that everything was normal at that time since then she hasn't been in touch with any ordnance equipment worker. This is a desired and her is supportive she denies any drinking, illicit drugs or alcohol. in the ED labs are unremarkable, EKG did suggest some sinus arrhythmia Review of Systems Pertinent positives as noted in HPI. All other systems were reviewed and are negative Past Medical History Past Medical History: No Reported History Additional Past Medical History / Comment(s): miscarriage History of Any Multi-Drug Resistant Organisms: None Reported Past Surgical History: Cholecystectomy Past Psychological History: Anxiety Smoking Status: Former smoker Past Alcohol Use History: None Reported Past Drug Use History: None Reported - Past Family History Mother Family Medical History: Hypertension Additional Family Medical History / Comment(s): Lupus Medications and Allergies Home Medications Medication Instructions Recorded Confirmed Type Pnv No.95/Ferrous Fum/Folic AC 1 tab PO DAILY 10/17/18 10/17/18 History [ Multivitamin Tablet] Allergies Allergy/AdvReac Type Severity Reaction Status Date / Time No Known Allergies Allergy Verified 10/17/18 17:40 Physical Exam Vitals: Vital Signs Temp Pulse Pulse Resp BP Pulse Ox 10/17/18 19:42 99.0 F 86 16 105/62 99 10/17/18 18:20 16 10/17/18 18:05 79 10/17/18 17:03 99.4 F 80 16 110/64 99 Intake and Output 10/17/18 10/17/18 10/17/18 06:59 14:59 22:59 Other: Weight 65.771 kg Constitutional: No acute distress, conversant, pleasant Eyes: Anicteric sclerae, moist conjunctiva, no lid-lag Pupils equal round reactive to light ENMT: NC/AT Oropharynx clear, no erythema, exudates Neck: Supple, FROM, no masses, or JVD No carotid bruits No thyromegaly Lungs: Clear to auscultation Clear to percussion Normal respiratory effort, no accessory muscle use Cardiovascular: Heart irregular rate going up and down No murmurs, gallops, or rubs No peripheral edema Abdominal: Soft Nontender, no guarding, rebound or rigidity Abdomen moving with respiration Normoactive bowel sounds No hepatomegaly, No splenomegaly No palpable mass No abdominal wall hernia noted Skin: Normal temperature, tone, texture, turgor No induration No subcutaneous nodules No rash, lesions No ulcers Extremities: No digital cyanosis No clubbing Pedal pulses intact and symmetrical Radial pulses intact and symmetrical No calf tenderness Psychiatric: Alert and oriented to person, place and time Appropriate affect fair judgment Neuro Muscles Strength 5/5 in all 4 extremities Sensation to light touch grossly present throughout Cranial nerves II-XII grossly intact No focal sensory deficits Lymphatics: no palpable cervical or supraclavicular , or inguinal lymph nodes Results CBC & Chem 7: 10/17/18 17:20 10/17/18 17:20 Labs: Abnormal Lab Results - Last 24 Hours (Table) 10/17/18 10/17/18 Range/Units 17:20 17:20 Carbon Dioxide 21 L (22-30) mmol/L Creatinine 0.47 L (0.52-1.04) mg/dL Glucose 114 H (74-99) mg/dL Total Protein 6.1 L (6.3-8.2) g/dL Urine Appearance Cloudy H (Clear) Urine Protein Trace H (Negative) Ur Leukocyte Esterase Small H (Negative) Ur Squamous Epith Cells 6 H (0-4) /hpf Urine Bacteria Occasional H (None) /hpf Urine Mucus Occasional H (None) /hpf Assessment and Plan Assessment: 28-year-old female currently 12 weeks admitted under observation with anticipated length of stay less than 48 hours due to syncope EKG showed sinus arrhythmia clinically on exam her heartrate with a irregular rate. patient to receive IV fluid hydration and await cardiology evaluation Plan: syncope Possible causes could be sinus arrhythmia versus dehydration IV fluid hydration Cardiac monitoring Cardiology evaluation EKG showed sinus arrhythmia and clinically when patient examined she is having irregular rate Labs unremarkable Urine sample was contaminated will await for cultures Patient otherwise asymptomatic discontinue antibiotics DVT prophylaxis mechanical 12 weeks Continue vitamins Surrogate decision-maker: CODE STATUS:full code Discussed with: Patient, ER, RN Anticipated dischargeless than 48hours Anticipated discharge place: home A total [id number] was spent on the care of this complex patient more than 50% of the time was spent in counseling and care coordination.
[2018-10-18] MEDS: SODIUM CHLORIDE 0.9% 1,000 ML IV SCH (05:30)
[2018-10-18 08:37] VITALS: RESP 16
[2018-10-18] MEDS ORDERED: CEPHALEXIN 500 MG CAP PO SCH (09:00)
[2018-10-18] MEDS ORDERED: PRENATAL VIT-IRON-FOLIC ACID 1 EACH CAP PO SCH (09:00)
--- NOTE | 2018-10-18 10:34 | P.CRDCN ---
History of Present Illness Consult date: 10/18/18 Requesting physician: Vahid Carrillo Reason for Consult (text): sinus arrhythmia Chief complaint: syncope History of present illness: This is a pleasant 28-year-old female patient with no significant past medical history. She is about 12 weeks . Presented with complaints of syncope. Apparently yesterday she was not feeling well and slept most of the day. She does not eat or drink much all day. She got up and went to her kitchen to make some lunch and began to feel dizzy, lightheaded, hot and her vision and hearing went fuzzy. She was caught by her . We were asked to see the patient in consultation due to sinus arrhythmia. EKG does show sinus arrhythmia but she h as had no significant bradycardia noted on telemetry. Labs on admission were unremarkable. UA did show bacteriuria and a culture has been sent. She's been started on normal saline at 100 mL per hour. Orthostatic blood pressures have been negative. She's had no further complaints of dizziness, lightheadedness or syncope. She does complain of occasional palpitations but attributes this to her anxiety. Past Medical History Past Medical History: No Reported History Additional Past Medical History / Comment(s): miscarriage History of Any Multi-Drug Resistant Organisms: None Reported Past Surgical History: Cholecystectomy Additional Past Surgical History / Comment(s): labia plas Past Anesthesia/Blood Transfusion Reactions: No Reported Reaction Past Psychological History: Anxiety Smoking Status: Former smoker Past Alcohol Use History: None Reported Past Drug Use History: None Reported - Past Family History Mother Family Medical History: Hypertension Additional Family Medical History / Comment(s): Lupus Medications and Allergies Home Medications Medication Instructions Recorded Confirmed Type Pnv No.95/Ferrous Fum/Folic AC 1 tab PO DAILY 10/17/18 10/17/18 History [ Multivitamin Tablet] Allergies Allergy/AdvReac Type Severity Reaction Status Date / Time No Known Allergies Allergy Verified 10/17/18 17:40 Physical Exam Vitals: Vital Signs Temp Pulse Pulse Pulse Resp BP BP 10/18/18 08:47 110/74 10/18/18 08:33 67 110/74 10/18/18 07:40 67 10/18/18 07:27 98.2 F 62 16 10/18/18 04:00 18 10/18/18 03:28 98.6 F 67 18 10/18/18 00:10 16 10/17/18 21:14 98.5 F 88 17 10/17/18 19:42 99.0 F 86 16 105/62 10/17/18 18:20 16 10/17/18 18:05 79 10/17/18 17:03 99.4 F 80 16 110/64 BP BP Pulse Ox 10/18/18 08:47 102/68 99/64 10/18/18 08:33 102/68 99/64 10/18/18 07:40 10/18/18 07:27 98/63 99 10/18/18 04:00 10/18/18 03:28 95/54 98 10/18/18 00:10 10/17/18 21:14 108/69 98 10/17/18 19:42 99 10/17/18 18:20 10/17/18 18:05 10/17/18 17:03 99 Intake and Output 10/17/18 10/18/18 10/18/18 22:59 06:59 14:59 Intake Total 2000 600 Balance 2000 600 Intake: Amount of Fluid Infused ( 2000 ml) Intake, IV Titration 600 Amount Sodium Chloride 0.9% 1, 600 000 ml @ 100 mls/hr IV . Q10H [facility] Rx#:[id number] Other: Voiding Method Toilet # Voids 2 Weight 65.771 kg PHYSICAL EXAMINATION: HEENT: Head is atraumatic, normocephalic. Pupils equal, round. Neck is supple. There is no elevated jugular venous pressure. HEART EXAMINATION: Heart sounds regular, S1 and S2 normal. No murmur or gallop heard. CHEST EXAMINATION: Lungs are clear to auscultation and precussion. No chest wall tenderness is noted on palpation or with deep breathing. ABDOMEN: Soft, nontender. Bowel sounds are heard. No organomegaly noted. EXTREMITIES: 2+ peripheral pulses with no evidence of peripheral edema and no calf tenderness noted. NEUROLOGIC patient is awake, alert and oriented x3. . Results 10/17/18 17:20 10/17/18 17:20 Cardiac Enzymes 10/17/18 10/17/18 Range/Units 17:20 17:20 AST 22 (14-36) U/L Troponin I <0.012 (0.000-0.034) ng/mL Coagulation 10/17/18 Range/Units 17:20 PT 10.0 (9.0-12.0) sec APTT 22.3 (22.0-30.0) sec CBC 10/17/18 Range/Units 17:20 WBC 6.7 (3.8-10.6) k/uL RBC 4.33 (3.80-5.40) m/uL Hgb 12.8 (11.4-16.0) gm/dL Hct 36.5 (34.0-46.0) % Plt Count 158 (150-450) k/uL Comprehensive Metabolic Panel 10/17/18 Range/Units 17:20 Sodium 139 (137-145) mmol/L Potassium 3.5 (3.5-5.1) mmol/L Chloride 107 (98-107) mmol/L Carbon Dioxide 21 L (22-30) mmol/L BUN 8 (7-17) mg/dL Creatinine 0.47 L (0.52-1.04) mg/dL Glucose 114 H (74-99) mg/dL Calcium 9.2 (8.4-10.2) mg/dL AST 22 (14-36) U/L ALT 19 (9-52) U/L Alkaline Phosphatase 38 (38-126) U/L Total Protein 6.1 L (6.3-8.2) g/dL Albumin 3.6 (3.5-5.0) g/dL Current Medications Generic Name Dose Route Start Last Admin Trade Name Freq PRN Reason Stop Dose Admin Sodium Chloride 1,000 mls @ 100 mls/hr 10/17/18 19:45 10/18/18 05:30 Saline 0.9% IV 100 mls/hr .Q10H DORON Administration Multivi/Iron Carb/Fe Sulf/FA/Prenat 1 each 10/18/18 09:00 10/18/18 08:41 -U Capsule PO 1 each DAILY DORON Administration Naloxone HCl 0.2 mg 10/17/18 19:38 Narcan IV Q2M PRN Opioid Reversal Intake and Output 10/17/18 10/18/18 10/18/18 22:59 06:59 14:59 Intake Total 1999 600 Balance 1999 600 Intake: Amount of Fluid Infused ( 2000 ml) Intake, IV Titration 600 Amount Sodium Chloride 0.9% 1, 600 000 ml @ 100 mls/hr IV . Q10H [facility] Rx#:[id number] Other: Voiding Method Toilet # Voids 2 Weight 65.771 kg 10/17/18 17:20 10/17/18 17:20 EKG Interpretations (text) Sinus Arrhythmia Assessment and Plan Assessment: #1 syncope likely secondary to orthostatic hypotension due to dehydration #2 sinus arrhythmia with no evidence of significant bradycardia Plan: From cardiology perspective, patient may be discharged home. She will follow-up in the office in about one to 2 weeks at which time we will consider doing echocardiogram. NUMERICAL CONTROL MACHINE MACHINIST note has been reviewed, I agree with a documented findings and plan of care. Patient was seen and examined.
--- NOTE | 2018-10-18 14:10 | P.DS ---
Providers Date of admission: 10/17/18 19:41 Expected date of discharge: 10/18/18 Attending physician: Vahid Carrillo MD Consults: 10/18/18 00:06 Consult Physician Routine Consulting Provider: Antonio Birch Consult Reason/Comments: sinus arrhythmia Do you want consulting provider notified?: Yes, Notify in am Primary care physician: Grupo Grover Hospital Course: Discharge Diagnosis: Syncopal episode, dehydration Sinus arrhythmia with no evidence of significant bradycardia 12 weeks, Hospital Course: Patient is a 28-year-old female with no significant past medical history who is to and 12 weeks with viable intrauterine who presented secondary to syncopal episode. She initially felt presyncopal and then did have an episode of fainting or passing out. In the ER she underwent an extensive evaluation. Initial laboratory analysis was unremarkable. EKG showed sinus arrhythmia. heart tones were normal. She was admitted for further monitoring. She was noted to have some sinus arrhythmia on telemetry. Cardiology was consulted. Her orthostatic vital signs were negative. Cardiology recommended discharge home follow-up in office in 2 weeks for possible echocardiogram. Patient denied any significant swelling or orthopnea. She did have some nausea and vomiting after taking her vitamin on an empty stomach. This resolved. She was determined stable for discharge home. She will also follow-up with Dr. Grover her WINE MASTER in approximately 1-2 days. Patient seen and examined at bedside. Feeling nauseated, no chest pain, no SOB, not lightheaded. Vital signs reviewed and stable. General: non toxic, no distress, appears at stated age Derm: warm, dry Head: atraumatic, normocephalic, symmetric Eyes: EOMI, no lid lag, anicteric sclera Mouth: no lip lesion, mucus membranes moist Cardiovascular: S1S2 reg, no murmur, positive posterior tibial pulse bilateral, Lungs: decreased breath sounds bilateral, no rhonchi, no rales , no accessory muscle use Abdominal: soft, nontender to palpation, no guarding, no appreciable organomegaly Ext: no gross muscle atrophy, no edema, no contractures Neuro: CN II-XI grossly intact, no focal neuro deficits Psych: Alert, oriented, appropriate affect A total of 25 minutes of time were spent preparing this complex discharge summary . Patient Condition at Discharge: Stable Plan - Discharge Summary Discharge Rx Participant: Yes New Discharge Prescriptions: Continue Pnv No.95/Ferrous Fum/Folic AC [ Multivitamin Tablet] 1 tab PO DAILY Discharge Medication List Pnv No.95/Ferrous Fum/Folic AC [ Multivitamin Tablet] 1 tab PO DAILY 10/17/18 [History] Follow up Appointment(s)/Referral(s): Grupo Grover DO [Primary Care Provider] - 1-2 days Maria Wiggins NPC [Nurse Practitioner] - 1 Week Patient Instructions/Handouts: Syncope (DC) Activity/Diet/Wound Care/Special Instructions: Regular diet Stay hydrated
[2018-10-18 15:35] VITALS: BP 102/68; PULSE 76; TEMP 97.8
== END 2018-10-18 16:37 | disposition home or self-care (01) ==
LOC: EC 16:52 → 4SSUR 19:41
PROVIDERS: ADMIT Internal Medicine; ATTEND Internal Medicine
DX: O99.281 Endocrine, nutritional and metabolic diseases complicating pregnancy, first trimester (principal); R55 Syncope and collapse; E86.0 Dehydration; O99.411 Diseases of the circulatory system complicating pregnancy, first trimester; Z3A.12 12 weeks gestation of pregnancy; O26.899 Other specified pregnancy related conditions, unspecified trimester; R82.71 Bacteriuria; R20.2 Paresthesia of skin; R20.0 Anesthesia of skin; Z87.891 Personal history of nicotine dependence; Z90.49 Acquired absence of other specified parts of digestive tract; Z82.49 Family history of ischemic heart disease and other diseases of the circulatory system; Z84.89 Family history of other specified conditions
CPT/HCPCS: 96360; 96361; 99285; 36415; 93005; 86900; 86901; 80053; 83735; 84484; 85025; 85610; 85730; 81001; 84702; 87086; G0378 ×2; S0197

== ENCOUNTER 2018-10-22 15:02 | Emergency (ER) | payer OTHER ==
[2018-10-22] MEDS ORDERED: SODIUM CHLORIDE 0.9% 1,000 ML IV STA (16:47)
[2018-10-22] MEDS ORDERED: SODIUM CHLORIDE 0.9% 500 ML 500 ML IV STA (16:47)
[2018-10-22 17:00] LABS: Basophils % (A) 0 %; Eosinophils % (A) 1 %; HCT 38.4 % (34.0-46.0); HGB 13.4 gm/dL (11.4-16.0); Lymphocytes # (A) 1.3 k/uL (1.0-4.8); Lymphocytes % (A) 21 %; MCH 29.7 pg (25.0-35.0); Mean Platelet Volume 7.6; Monocytes # (A) 0.3 k/uL (0-1.0); Monocytes % (A) 5 %; Neutrophils # (A) 4.6 k/uL (1.3-7.7); Neutrophils % (A) 72 %; Platelet Count 172 k/uL (150-450); RBC 4.52 m/uL (3.80-5.40); RDW 12.7 % (11.5-15.5); WBC 6.4 k/uL (3.8-10.6)
[2018-10-22 17:07] LABS: Glucose,Whole Blood 88 mg/dL (75-99)
--- NOTE | 2018-10-22 17:09 | ED ---
General Adult HPI - General Chief complaint: Syncope Stated complaint: Near syncope Time Seen by Provider: 10/22/18 16:09 Source: patient, family, RN notes reviewed Mode of arrival: ambulatory Limitations: no limitations - History of Present Illness Initial comments: Patient is a pleasant 28-year-old female presenting to the emergency department after a near syncopal episode. Patient was driving. Patient felt her heart pounding. Patient states she went to the side of the road and felt nauseous and sweaty. Patient maintained her head on the steering wheel for second and then started feeling better. Patient is not 100% clear however does not feel that she lost consciousness. Patient denies having any chest pain. Patient did have similar symptoms several days ago and was observed in the hospital for this. Patient did follow-up with cardiology today who did have concerns or orthostasis upon testing. Patient states she has been trying to drink more fluids over the past few days. Patient denies any pelvic pain or vaginal bleeding. Patient is G4 P 2 A1. - Related Data Home Medications Medication Instructions Recorded Confirmed Pnv No.95/Ferrous Fum/Folic AC 1 tab PO DAILY 10/17/18 10/22/18 [ Multivitamin Tablet] Allergies Allergy/AdvReac Type Severity Reaction Status Date / Time No Known Allergies Allergy Verified 10/22/18 16:06 Review of Systems ROS Statement: Those systems with pertinent positive or pertinent negative responses have been documented in the HPI. ROS Other: All systems not noted in ROS Statement are negative. Constitutional: Denies: fever Eyes: Denies: eye pain ENT: Denies: ear pain Respiratory: Reports: dyspnea (Patient states she sometimes feels short of breath however this is chronic and unchanged. Patient states this is not a change in the past couple of weeks worsens .). Denies: cough Cardiovascular: Reports: palpitations. Denies: chest pain Endocrine: Denies: fatigue Gastrointestinal: Reports: nausea. Denies: abdominal pain, vomiting Genitourinary: Denies: dysuria Musculoskeletal: Denies: back pain Skin: Denies: rash Neurological: Reports: headache (Patient states she does have a mild left frontal headache. Patient has had worse headaches in the past previously. Patient does have history of migraines.) Past Medical History Past Medical History: No Reported History Additional Past Medical History / Comment(s): miscarriage, syncope History of Any Multi-Drug Resistant Organisms: None Reported Past Surgical History: Cholecystectomy Additional Past Surgical History / Comment(s): labia plas Past Anesthesia/Blood Transfusion Reactions: No Reported Reaction Past Psychological History: Anxiety Smoking Status: Former smoker Past Alcohol Use History: None Reported Past Drug Use History: None Reported - Past Family History Mother Family Medical History: Hypertension Additional Family Medical History / Comment(s): Lupus General Exam Limitations: no limitations General appearance: alert, in no apparent distress Head exam: Present: atraumatic Eye exam: Present: normal appearance, PERRL, EOMI. Absent: nystagmus ENT exam: Present: normal oropharynx Neck exam: Present: normal inspection Respiratory exam: Present: normal lung sounds bilaterally Cardiovascular Exam: Present: regular rate, normal rhythm Expanded Peripheral pulses: 2+: Radial (R), Radial (L), Dorsalis Pedis (R), Dorsalis Pedis (L) GI/Abdominal exam: Present: soft. Absent: distended, tenderness, guarding, rebound, rigid Extremities exam: Present: normal inspection. Absent: pedal edema, calf tenderness Neurological exam: Present: alert, oriented X3, CN II-XII intact. Absent: motor sensory deficit Psychiatric exam: Present: normal affect, normal mood Skin exam: Present: normal color Course Vital Signs 10/22/18 10/22/18 15:07 19:00 Temperature 98.4 F 98.2 F Pulse Rate 84 81 Respiratory 16 18 Rate Blood Pressure 106/72 114/72 O2 Sat by Pulse 99 99 Oximetry - Reevaluation(s) Reevaluation #1: 10/22/18 17:06 Patient is felt to be low suspicion for pulmonary embolism. Patient and family are updated regarding this. They are aware that this has not been 100 percent ruled out however. They are offered computed tomography scan of the chest to e valuate for pulmonary embolism however patient refuses. Patient does demonstrate medical decision making. Patient states the breathing difficulty that she has is unchanged and mild and has none at this time and none during the episode. Patient states this is a chronic problem for her. Patient states she would not want radiation that could potentially harm the baby. Patient is made aware that generally once computed tomography scan is felt to be enough radiation to cause harm. EKG Findings - EKG Comments: EKG Findings:: Normal sinus rhythm 74. Sinus arrhythmia. MI 124. QRS 82. QT 384. QTC 426. Normal axis. No QRS. No acute ST change. Medical Decision Making - Medical Decision Making Patient reevaluated and resting comfortably in bed. Patient is symptom-free at this time. Patient states she feels better following fluids. Patient is made aware of results. Patient is comfortable with discharge home and states she does have an appointment with her ABRASIVE WORKER tomorrow. Patient is updated on need for follow-up as long as need for follow-up with primary care physician and cryptozoologist. - Lab Data Result diagrams: 10/22/18 15:39 10/22/18 15:39 Lab Results 10/22/18 10/22/18 10/22/18 Range/Units 15:39 15:39 15:39 WBC 6.4 (3.8-10.6) k/uL RBC 4.52 (3.80-5.40) m/uL Hgb 13.4 (11.4-16.0) gm/dL Hct 38.4 (34.0-46.0) % MCV 85.0 (80.0-100.0) fL MCH 29.7 (25.0-35.0) pg MCHC 35.0 (31.0-37.0) g/dL RDW 12.7 (11.5-15.5) % Plt Count 172 (150-450) k/uL Neutrophils % 72 % Lymphocytes % 21 % Monocytes % 5 % Eosinophils % 1 % Basophils % 0 % Neutrophils # 4.6 (1.3-7.7) k/uL Lymphocytes # 1.3 (1.0-4.8) k/uL Monocytes # 0.3 (0-1.0) k/uL Eosinophils # 0.0 (0-0.7) k/uL Basophils # 0.0 (0-0.2) k/uL PT 9.9 (9.0-12.0) sec INR 0.9 (<1.2) APTT 23.4 (22.0-30.0) sec Sodium 138 (137-145) mmol/L Potassium 3.6 (3.5-5.1) mmol/L Chloride 105 (98-107) mmol/L Carbon Dioxide 22 (22-30) mmol/L Anion Gap 11 mmol/L BUN 9 (7-17) mg/dL Creatinine 0.46 L (0.52-1.04) mg/dL Est GFR (CKD-EPI)AfAm >90 (>60 ml/min/1.73 sqM) Est GFR (CKD-EPI)NonAf >90 (>60 ml/min/1.73 sqM) Glucose 82 (74-99) mg/dL POC Glucose (mg/dL) (75-99) mg/dL POC Glu Rough Planer Tender ID Calcium 9.8 (8.4-10.2) mg/dL Magnesium 1.9 (1.6-2.3) mg/dL Total Bilirubin 0.6 (0.2-1.3) mg/dL AST 18 (14-36) U/L ALT 11 (9-52) U/L Alkaline Phosphatase 41 (38-126) U/L Troponin I (0.000-0.034) ng/mL Total Protein 6.9 (6.3-8.2) g/dL Albumin 4.2 (3.5-5.0) g/dL HCG, Quant mIU/mL Urine Color Urine Appearance (Clear) Urine pH (5.0-8.0) Ur Specific Joaquin (1.001-1.035) Urine Protein (Negative) Urine Glucose (UA) (Negative) Urine Ketones (Negative) Urine Blood (Negative) Urine Nitrite (Negative) Urine Bilirubin (Negative) Urine Urobilinogen (<2.0) mg/dL Ur Leukocyte Esterase (Negative) Urine RBC (0-5) /hpf Urine WBC (0-5) /hpf Ur Squamous Epith Cells (0-4) /hpf Urine Bacteria (None) /hpf 10/22/18 10/22/18 10/22/18 Range/Units 15:39 15:39 15:39 WBC (3.8-10.6) k/uL RBC (3.80-5.40) m/uL Hgb (11.4-16.0) gm/dL Hct (34.0-46.0) % MCV (80.0-100.0) fL MCH (25.0-35.0) pg MCHC (31.0-37.0) g/dL RDW (11.5-15.5) % Plt Count (150-450) k/uL Neutrophils % % Lymphocytes % % Monocytes % % Eosinophils % % Basophils % % Neutrophils # (1.3-7.7) k/uL Lymphocytes # (1.0-4.8) k/uL Monocytes # (0-1.0) k/uL Eosinophils # (0-0.7) k/uL Basophils # (0-0.2) k/uL PT (9.0-12.0) sec INR (<1.2) APTT (22.0-30.0) sec Sodium (137-145) mmol/L Potassium (3.5-5.1) mmol/L Chloride (98-107) mmol/L Carbon Dioxide (22-30) mmol/L Anion Gap mmol/L BUN (7-17) mg/dL Creatinine (0.52-1.04) mg/dL Est GFR (CKD-EPI)AfAm (>60 ml/min/1.73 sqM) Est GFR (CKD-EPI)NonAf (>60 ml/min/1.73 sqM) Glucose (74-99) mg/dL POC Glucose (mg/dL) (75-99) mg/dL POC Glu Rough Planer Tender ID Calcium (8.4-10.2) mg/dL Magnesium (1.6-2.3) mg/dL Total Bilirubin (0.2-1.3) mg/dL AST (14-36) U/L ALT (9-52) U/L Alkaline Phosphatase (38-126) U/L Troponin I <0.012 (0.000-0.034) ng/mL Total Protein (6.3-8.2) g/dL Albumin (3.5-5.0) g/dL HCG, Quant 54880.7 mIU/mL Urine Color Light Yellow Urine Appearance Clear (Clear) Urine pH 7.0 (5.0-8.0) Ur Specific Jo[place]quin 1.011 (1.001-1.035) Urine Protein Negative (Negative) Urine Glucose (UA) Negative (Negative) Urine Ketones Negative (Negative) Urine Blood Negative (Negative) Urine Nitrite Negative (Negative) Urine Bilirubin Negative (Negative) Urine Urobilinogen <2.0 (<2.0) mg/dL Ur Leukocyte Esterase Moderate H (Negative) Urine RBC 1 (0-5) /hpf Urine WBC 2 (0-5) /hpf Ur Squamous Epith Cells 2 (0-4) /hpf Urine Bacteria Rare H (None) /hpf 10/22/18 Range/Units 16:59 WBC (3.8-10.6) k/uL RBC (3.80-5.40) m/uL Hgb (11.4-16.0) gm/dL Hct (34.0-46.0) % MCV (80.0-100.0) fL MCH (25.0-35.0) pg MCHC (31.0-37.0) g/dL RDW (11.5-15.5) % Plt Count (150-450) k/uL Neutrophils % % Lymphocytes % % Monocytes % % Eosinophils % % Basophils % % Neutrophils # (1.3-7.7) k/uL Lymphocytes # (1.0-4.8) k/uL Monocytes # (0-1.0) k/uL Eosinophils # (0-0.7) k/uL Basophils # (0-0.2) k/uL PT (9.0-12.0) sec INR (<1.2) APTT (22.0-30.0) sec Sodium (137-145) mmol/L Potassium (3.5-5.1) mmol/L Chloride (98-107) mmol/L Carbon Dioxide (22-30) mmol/L Anion Gap mmol/L BUN (7-17) mg/dL Creatinine (0.52-1.04) mg/dL Est GFR (CKD-EPI)AfAm (>60 ml/min/1.73 sqM) Est GFR (CKD-EPI)NonAf (>60 ml/min/1.73 sqM) Glucose (74-99) mg/dL POC Glucose (mg/dL) 88 (75-99) mg/dL POC Glu Rough Planer Tender ID Fetterly, Rae Calcium (8.4-10.2) mg/dL Magnesium (1.6-2.3) mg/dL Total Bilirubin (0.2-1.3) mg/dL AST (14-36) U/L ALT (9-52) U/L Alkaline Phosphatase (38-126) U/L Troponin I (0.000-0.034) ng/mL Total Protein (6.3-8.2) g/dL Albumin (3.5-5.0) g/dL HCG, Quant mIU/mL Urine Color Urine Appearance (Clear) Urine pH (5.0-8.0) Ur Specific Joaquin (1.001-1.035) Urine Protein (Negative) Urine Glucose (UA) (Negative) Urine Ketones (Negative) Urine Blood (Negative) Urine Nitrite (Negative) Urine Bilirubin (Negative) Urine Urobilinogen (<2.0) mg/dL Ur Leukocyte Esterase (Negative) Urine RBC (0-5) /hpf Urine WBC (0-5) /hpf Ur Squamous Epith Cells (0-4) /hpf Urine Bacteria (None) /hpf Disposition Clinical Impression: Near syncope, Palpitations Disposition: HOME SELF-CARE Condition: Stable Instructions (If sedation given, give patient instructions): Near Syncope (ED), Heart Palpitations (ED) Additional Instructions: Please follow-up with ABRASIVE WORKER, Dr. Turner tomorrow as planned. Please also follow-up to primary care physician and cryptozoologist in the next couple days for recheck. Return for chest pain or difficulty in breathing, headaches, passing out, worsening symptoms or other concerns. No driving until released by primary care physician. Is patient prescribed a controlled substance at d/c from ED?: No Referrals: Grupo Grover DO [Doctor of Osteopathic Medicine] - 1-2 days Samantha Iqbal MD [STAFF PHYSICIAN] - 1-2 days Sonia Ventura MD [STAFF PHYSICIAN] - 1-2 days Time of Disposition: 19:37
[2018-10-22 17:12] LABS: ALT 11 U/L (9-52); AST 18 U/L (14-36); African American GFR (CKD) >90 (>60 ml/min/1.73 sqM); Albumin 4.2 g/dL (3.5-5.0); Alkaline Phosphatase 41 U/L (38-126); Anion Gap 11 mmol/L; Blood Urea Nitrogen 9 mg/dL (7-17); Calcium 9.8 mg/dL (8.4-10.2); Carbon Dioxide 22 mmol/L (22-30); Chloride 105 mmol/L (98-107); Glucose 82 mg/dL (74-99); Magnesium 1.9 mg/dL (1.6-2.3); Potassium 3.6 mmol/L (3.5-5.1); Sodium 138 mmol/L (137-145); Total Bilirubin 0.6 mg/dL (0.2-1.3); Total Protein 6.9 g/dL (6.3-8.2)
[2018-10-22 17:15] LABS: Appearance,Urine Clear (Clear); Bacteria,Urine Rare /hpf; Bilirubin,Urine Negative (Negative); Blood,Urine Negative (Negative); Color,Urine Light Yellow; Glucose,Urine (UA) Negative (Negative); Ketones,Urine Negative (Negative); Leukocyte Esterase,Urine Moderate (Negative); Nitrite,Urine Negative (Negative); Protein,Urine Negative (Negative); RBC,Urine 1 /hpf (0-5); Specific Gravity,Urine 1.011 (1.001-1.035); Squamous Epithelial Cell,Urine 2 /hpf (0-4); Urobilinogen,Urine <2.0 mg/dL (<2.0); WBC,Urine 2 /hpf (0-5)
[2018-10-22 17:23] LABS: INR 0.9 (<1.2); Partial Thromboplastin Time 23.4 sec (22.0-30.0); Prothrombin Time 9.9 sec (9.0-12.0)
[2018-10-22 19:01] VITALS: BP 114/72; PULSE 81; TEMP 98.2
[2018-10-22 20:04] VITALS: RESP 16
== END 2018-10-22 20:24 | disposition home or self-care (01) ==
LOC: EC 15:02
DX: O99.89 Other specified diseases and conditions complicating pregnancy, childbirth and the puerperium (principal); R55 Syncope and collapse; R00.2 Palpitations; R11.0 Nausea; Z87.891 Personal history of nicotine dependence; Z3A.00 Weeks of gestation of pregnancy not specified
CPT/HCPCS: 36415; 80053; 81001; 83735; 84484; 84702; 85025; 85610; 85730; 93005; 96360; 96361; 99284

== ENCOUNTER 2018-11-24 21:40 | Emergency (ER) | payer OTHER ==
[2018-11-24 23:07] LABS: Appearance,Urine Clear (Clear); Bacteria,Urine Rare /hpf; Bilirubin,Urine Negative (Negative); Blood,Urine Negative (Negative); Color,Urine Yellow; Glucose,Urine (UA) Negative (Negative); Ketones,Urine Negative (Negative); Leukocyte Esterase,Urine Small (Negative); Nitrite,Urine Negative (Negative); Protein,Urine Negative (Negative); RBC,Urine <1 /hpf (0-5); Specific Gravity,Urine 1.021 (1.001-1.035); Squamous Epithelial Cell,Urine 1 /hpf (0-4); Urobilinogen,Urine <2.0 mg/dL (<2.0); WBC,Urine 2 /hpf (0-5)
[2018-11-24 23:50] VITALS: BP 101/63; PULSE 85; RESP 18
--- NOTE | 2018-11-24 23:58 | US ---
EXAM: US After First Trimester, Transabdominal CLINICAL HISTORY: ITS.REASON US Reason: Pain TECHNIQUE: Real-time transabdominal obstetrical ultrasound of the maternal pelvis and a second or third trimester with image documentation. COMPARISON: No relevant prior studies available. FINDINGS: 18 week intrauterine gestation, normal heart rate, no hemorrhage IMPRESSION: See above
--- NOTE | 2018-11-25 | ED ---
General Adult HPI - General Chief complaint: Recheck/Abnormal Lab/Rx Stated complaint: 17 weeks , felt a gush and cramping Time Seen by Provider: 11/24/18 22:06 Source: patient Mode of arrival: ambulatory Limitations: no limitations - History of Present Illness Initial comments: 28-year-old female patient presents to the emergency department today for evaluation after feeling a roof with from vagina. Patient states that she is currently 17 weeks . Patient states this occurred approximately 45 minutes ago. Patient states she did have some mild lower abdominal cramping after this occurred. Patient does not believe that she urinated. Patient denies any low back pain. Denies any abnormal vaginal bleeding or discharge sitting up to this. Patient is currently seeing Dr. Grover outpatient. She is A1 with spontaneous last year. Patient denies any recent rash, fever, chills, shortness breath, chest pain, nausea, vomiting, diarrhea, constipation, back pain, numbness, tingling, dizziness, weakness, hematuria, dysuria, urinary urgency, urinary frequency, headache, visual changes, or any other complaints. - Related Data Home Medications Medication Instructions Recorded Confirmed Pnv No.95/Ferrous Fum/Folic AC 1 tab PO DAILY 10/17/18 10/22/18 [ Multivitamin Tablet] Allergies Allergy/AdvReac Type Severity Reaction Status Date / Time No Known Allergies Allergy Verified 11/24/18 22:02 Review of Systems ROS Statement: Those systems with pertinent positive or pertinent negative responses have been documented in the HPI. ROS Other: All systems not noted in ROS Statement are negative. Past Medical History Past Medical History: No Reported History Additional Past Medical History / Comment(s): miscarriage, syncope History of Any Multi-Drug Resistant Organisms: None Reported Past Surgical History: Cholecystectomy Additional Past Surgical History / Comment(s): labia plas Past Anesthesia/Blood Transfusion Reactions: No Reported Reaction Past Psychological History: Anxiety Smoking Status: Former smoker Past Alcohol Use History: None Reported Past Drug Use History: None Reported - Past Family History Mother Family Medical History: Hypertension Additional Family Medical History / Comment(s): Lupus General Exam Limitations: no limitations General appearance: alert, in no apparent distress, other (Physical well- developed, well-nourished adult female patient in no acute distress. Vital signs upon presentation are temperature 97.8F, pulse 95, respirations 16, blood pressure 120/77, pulse ox 97% on room air.) Eye exam: Present: normal appearance, PERRL, EOMI. Absent: scleral icterus, conjunctival injection, periorbital swelling Respiratory exam: Present: normal lung sounds bilaterally. Absent: respiratory distress, wheezes, rales, rhonchi, stridor Cardiovascular Exam: Present: regular rate, normal rhythm, normal heart sounds. Absent: systolic murmur, diastolic murmur, rubs, gallop, clicks GI/Abdominal exam: Present: soft, normal bowel sounds. Absent: distended, tenderness, guarding, rebound, rigid External exam: Present: normal external exam Speculum exam: Present: normal speculum exam, vaginal discharge (White, physiologic), other (Cervical os is closed) Neurological exam: Present: alert, oriented X3, CN II-XII intact Psychiatric exam: Present: normal affect, normal mood Skin exam: Present: warm, dry, intact, normal color. Absent: rash Course Vital Signs 11/24/18 11/24/18 11/25/18 22:00 23:48 00:05 Temperature 97.8 F 98.3 F Pulse Rate 95 85 Respiratory 16 18 Rate Blood Pressure 120/77 101/63 O2 Sat by Pulse 97 96 Oximetry Medical Decision Making - Medical Decision Making 28-year-old female patient presents to the emergency department today for evaluation after feeling a gush of fluid from her vagina. Patient is 17 weeks currently was having some mild cramping. Physical examination is unremarkable. Pelvic examination was performed and did show some mild white physiologic discharge. Cervical os is closed. Ultrasound was obtained and show ed unremarkable single, live intrauterine gestation measuring 18 weeks with no hemorrhage normal heart rate. She'll be discharged home at this time. Her DIESEL ENGINE INSPECTOR for recheck as soon as possible. Return parameters were discussed in detail. She verbalizes understanding and agrees with this plan. - Lab Data Lab Results 11/24/18 Range/Units 22:36 Urine Color Yellow Urine Appearance Clear (Clear) Urine pH 7.0 (5.0-8.0) Ur Specific [place] 1.021 (1.001-1.035) Urine Protein Negative (Negative) Urine Glucose (UA) Negative (Negative) Urine Ketones Negative (Negative) Urine Blood Negative (Negative) Urine Nitrite Negative (Negative) Urine Bilirubin Negative (Negative) Urine Urobilinogen <2.0 (<2.0) mg/dL Ur Leukocyte Esterase Small H (Negative) Urine RBC <1 (0-5) /hpf Urine WBC 2 (0-5) /hpf Ur Squamous Epith Cells 1 (0-4) /hpf Urine Bacteria Rare H (None) /hpf - Radiology Data Radiology results: report reviewed Transabdominal ultrasound was obtained. Report was reviewed in its entirety. Impression by Dr. Thomason shows 18 week intrauterine gestation, normal heart rate, no hemorrhage. Disposition Clinical Impression: Vaginal discharge during in second trimester Disposition: HOME SELF-CARE Condition: Good Instructions (If sedation given, give patient instructions): (ED) Additional Instructions: Increase fluids. Follow-up with your DIESEL ENGINE INSPECTOR for recheck as soon as possible. Return to the emergency department immediately for any new, worsening, or concerning symptoms. Is patient prescribed a controlled substance at d/c from ED?: No Referrals: None,Stated [Primary Care Provider] - 1-2 days Time of Disposition: 00:00
[2018-11-25 00:06] VITALS: TEMP 98.3
== END 2018-11-25 00:05 | disposition home or self-care (01) ==
LOC: EC 21:40
DX: O99.89 Other specified diseases and conditions complicating pregnancy, childbirth and the puerperium (principal); N89.8 Other specified noninflammatory disorders of vagina; R10.30 Lower abdominal pain, unspecified; Z90.49 Acquired absence of other specified parts of digestive tract; Z87.891 Personal history of nicotine dependence; Z87.59 Personal history of other complications of pregnancy, childbirth and the puerperium; Z3A.18 18 weeks gestation of pregnancy
CPT/HCPCS: 76805; 81001; 87086; 99284

== ENCOUNTER 2018-12-26 15:00 | Emergency (ER) | payer OTHER ==
[2018-12-26 15:06] VITALS: TEMP 98.1
[2018-12-26] MEDS ORDERED: SODIUM CHLORIDE 0.9% 1,000 ML IV STA ×2 (15:29)
--- NOTE | 2018-12-26 15:37 | ED ---
Dizziness HPI - General Chief Complaint: Syncope Stated Complaint: syncope Time Seen by Provider: 12/26/18 15:16 Source: EMS, RN notes reviewed, old records reviewed Mode of arrival: EMS Limitations: no limitations - History of Present Illness Initial Comments: Is a 28-year-old female, . She is currently 21 weeks . She presents today after a questionable syncopal versus seizure-like episode. Patient reportedly wasn't feeling well this morning, and wasn't drinking as much fluids. She was recently admitted a few months ago for syncopal episode of as well. She denies any chest or back or abdominal pain. Patient states that today she went to sit and drink and eat something which her stomach suddenly felt very nauseated. She states she started to develop tunnel vision and asked her to lay her down on the ground. Patient reportedly tensed up according to the for approximately 1 minute. But then when she came to she was alert and oriented proximally 5-10 minutes after the episode. Denies any history of seizure disorder. - Related Data Home Medications Medication Instructions Recorded Confirmed Pnv No.95/Ferrous Fum/Folic AC 1 tab PO DAILY 10/17/18 10/22/18 [ Multivitamin Tablet] Previous Rx's Medication Instructions Recorded Cephalexin [Keflex] 500 mg PO Q8HR #21 cap 12/26/18 Allergies Allergy/AdvReac Type Severity Reaction Status Date / Time No Known Allergies Allergy Verified 12/26/18 15:06 Review of Systems ROS Statement: Those systems with pertinent positive or pertinent negative responses have been documented in the HPI. ROS Other: All systems not noted in ROS Statement are negative. Past Medical History Past Medical History: No Reported History Additional Past Medical History / Comment(s): miscarriage, syncope History of Any Multi-Drug Resistant Organisms: None Reported Past Surgical History: Cholecystectomy Additional Past Surgical History / Comment(s): labia plas Past Anesthesia/Blood Transfusion Reactions: No Reported Reaction Past Psychological History: Anxiety Smoking Status: Former smoker Past Alcohol Use History: None Reported Past Drug Use History: None Reported - Past Family History Mother Family Medical History: Hypertension Additional Family Medical History / Comment(s): Lupus General Exam - General Exam Comments Initial Comments: 28-year-old female. Alert and oriented 3. Limitations: no limitations General appearance: alert, in no apparent distress Head exam: Present: atraumatic, normocephalic, normal inspection Eye exam: Present: normal appearance, PERRL, EOMI. Absent: scleral icterus, conjunctival injection, periorbital swelling ENT exam: Present: normal exam, mucous membranes moist Neck exam: Present: normal inspection. Absent: tenderness, meningismus, lymphadenopathy Respiratory exam: Present: normal lung sounds bilaterally. Absent: respiratory distress, wheezes, rales, rhonchi, stridor Cardiovascular Exam: Present: regular rate, normal rhythm, normal heart sounds. Absent: systolic murmur, diastolic murmur, rubs, gallop, clicks GI/Abdominal exam: Present: soft, normal bowel sounds. Absent: distended, tenderness, guarding, rebound, rigid Extremities exam: Present: normal inspection, full ROM, normal capillary refill. Absent: tenderness, pedal edema, joint swelling, calf tenderness Back exam: Present: normal inspection Neurological exam: Present: alert, oriented X3, CN II-XII intact Skin exam: Present: warm, dry, intact, normal color. Absent: rash Course Vital Signs 12/26/18 12/26/18 12/26/18 15:03 15:11 15:30 Temperature 98.1 F Pulse Rate 78 77 78 Respiratory 16 10 L 9 L Rate Blood Pressure 103/53 93/58 93/58 O2 Sat by Pulse 98 98 95 Oximetry 12/26/18 12/26/18 12/26/18 16:00 16:30 17:00 Temperature Pulse Rate 76 84 80 Respiratory 13 15 14 Rate Blood Pressure 94/61 94/60 103/63 O2 Sat by Pulse 97 98 97 Oximetry 12/26/18 17:30 Temperature Pulse Rate 85 Respiratory 14 Rate Blood Pressure 98/57 O2 Sat by Pulse 97 Oximetry Medical Decision Making - Medical Decision Making 28-year-old female presents emergency department today for valuation for syncopal episode. 21 weeks . At this time Patient is currently EKG. Patient relates drinking much earlier today. Patient is given IV fluids labwork obtained. Lab work was reviewed have no significant maladies. Patient denies any related symptoms including fluid loss or vaginal bleeding. Ultrasound shows heart tones 150 minute. Patient case was discussed with Dr. Marrero. Patient case was then discussed with Dr. Vila on-call [employer]. Patient can follow up outpatient only, simvastatin isolated incident of likely related to dehydration and eating well. Patient is agreeable to eating frequency. She drank and ate while in ER and feels well and would like discharged home. Discussed that we'll put the Patient on Keflex for his manic bacteria. Urine culture completed. - Lab Data Result diagrams: 12/26/18 15:30 12/26/18 15:30 Lab Results 12/26/18 12/26/18 12/26/18 Range/Units 15:30 15:30 15:30 WBC 9.8 (3.8-10.6) k/uL RBC 4.32 (3.80-5.40) m/uL Hgb 13.4 (11.4-16.0) gm/dL Hct 37.5 (34.0-46.0) % MCV 86.8 (80.0-100.0) fL MCH 31.1 (25.0-35.0) pg MCHC 35.8 (31.0-37.0) g/dL RDW 13.0 (11.5-15.5) % Plt Count 154 (150-450) k/uL Neutrophils % 77 % Lymphocytes % 16 % Monocytes % 5 % Eosinophils % 1 % Basophils % 1 % Neutrophils # 7.5 (1.3-7.7) k/uL Lymphocytes # 1.5 (1.0-4.8) k/uL Monocytes # 0.5 (0-1.0) k/uL Eosinophils # 0.1 (0-0.7) k/uL Basophils # 0.1 (0-0.2) k/uL PT (9.0-12.0) sec INR (<1.2) APTT (22.0-30.0) sec Sodium 136 L (137-145) mmol/L Potassium 4.7 (3.5-5.1) mmol/L Chloride 107 (98-107) mmol/L Carbon Dioxide 21 L (22-30) mmol/L Anion Gap 8 mmol/L BUN 9 (7-17) mg/dL Creatinine 0.43 L (0.52-1.04) mg/dL Est GFR (CKD-EPI)AfAm >90 (>60 ml/min/1.73 sqM) Est GFR (CKD-EPI)NonAf >90 (>60 ml/min/1.73 sqM) Glucose 79 (74-99) mg/dL Plasma Lactic Acid Tre 0.9 (0.7-2.0) mmol/L Calcium 9.1 (8.4-10.2) mg/dL Magnesium 2.0 (1.6-2.3) mg/dL Total Bilirubin 0.8 (0.2-1.3) mg/dL AST 29 (14-36) U/L ALT 7 L (9-52) U/L Alkaline Phosphatase 67 (38-126) U/L Troponin I (0.000-0.034) ng/mL Total Protein 6.7 (6.3-8.2) g/dL Albumin 3.7 (3.5-5.0) g/dL Urine Color Urine Appearance (Clear) Urine pH (5.0-8.0) Ur Specific [place] (1.001-1.035) Urine Protein (Negative) Urine Glucose (UA) (Negative) Urine Ketones (Negative) Urine Blood (Negative) Urine Nitrite (Negative) Urine Bilirubin (Negative) Urine Urobilinogen (<2.0) mg/dL Ur Leukocyte Esterase (Negative) Urine RBC (0-5) /hpf Urine WBC (0-5) /hpf Ur Squamous Epith Cells (0-4) /hpf Amorphous Sediment (None) /hpf Urine Bacteria (None) /hpf Urine Mucus (None) /hpf 12/26/18 12/26/18 12/26/18 Range/Units 15:30 15:30 16:15 WBC (3.8-10.6) k/uL RBC (3.80-5.40) m/uL Hgb (11.4-16.0) gm/dL Hct (34.0-46.0) % MCV (80.0-100.0) fL MCH (25.0-35.0) pg MCHC (31.0-37.0) g/dL RDW (11.5-15.5) % Plt Count (150-450) k/uL Neutrophils % % Lymphocytes % % Monocytes % % Eosinophils % % Basophils % % Neutrophils # (1.3-7.7) k/uL Lymphocytes # (1.0-4.8) k/uL Monocytes # (0-1.0) k/uL Eosinophils # (0-0.7) k/uL Basophils # (0-0.2) k/uL PT 9.6 (9.0-12.0) sec INR 0.9 (<1.2) APTT 21.2 L (22.0-30.0) sec Sodium (137-145) mmol/L Potassium (3.5-5.1) mmol/L Chloride (98-107) mmol/L Carbon Dioxide (22-30) mmol/L Anion Gap mmol/L BUN (7-17) mg/dL Creatinine (0.52-1.04) mg/dL Est GFR (CKD-EPI)AfAm (>60 ml/min/1.73 sqM) Est GFR (CKD-EPI)NonAf (>60 ml/min/1.73 sqM) Glucose (74-99) mg/dL Plasma Lactic Acid Tre (0.7-2.0) mmol/L Calcium (8.4-10.2) mg/dL Magnesium (1.6-2.3) mg/dL Total Bilirubin (0.2-1.3) mg/dL AST (14-36) U/L ALT (9-52) U/L Alkaline Phosphatase (38-126) U/L Troponin I <0.012 (0.000-0.034) ng/mL Total Protein (6.3-8.2) g/dL Albumin (3.5-5.0) g/dL Urine Color Yellow Urine Appearance Clear (Clear) Urine pH 7.5 (5.0-8.0) Ur Specific [place] 1.015 (1.001-1.035) Urine Protein Trace H (Negative) Urine Glucose (UA) Negative (Negative) Urine Ketones Negative (Negative) Urine Blood Negative (Negative) Urine Nitrite Negative (Negative) Urine Bilirubin Negative (Negative) Urine Urobilinogen <2.0 (<2.0) mg/dL Ur Leukocyte Esterase Moderate H (Negative) Urine RBC 1 (0-5) /hpf Urine WBC 34 H (0-5) /hpf Ur Squamous Epith Cells 10 H (0-4) /hpf Amorphous Sediment Rare H (None) /hpf Urine Bacteria Occasional H (None) /hpf Urine Mucus Rare H (None) /hpf 12/26/18 16:27 EKG performed at 1540 shows normal sinus rhythm normal EKG. Ventricular 80 bpm. Was 136. She scientologist is 78 ms. QT QTc is 42/463 ms. - Radiology Data Radiology results: report reviewed Chest x-ray. Heart tones heart rate 1 50 bpm. No gross cyst on his present exam. Disposition Clinical Impression: Asymptomatic bacteriuria during , Syncope Disposition: ADMITTED IP TO THIS HOSP Condition: Stable Instructions (If sedation given, give patient instructions): Syncope (ED), Urinary Tract Infection in (ED) Additional Instructions: Please use medication as discussed. Please follow up with family doctor if symptoms have not improved over the next two days. Please return to the emergency room if your symptoms increase or worsen or for any other concerns. Prescriptions: Cephalexin [Keflex] 500 mg PO Q8HR #21 cap Is patient prescribed a controlled substance at d/c from ED?: No Referrals: None,Stated [Primary Care Provider] - 1-2 days Grupo Grover DO [Doctor of Osteopathic Medicine] - 1-2 days Time of Disposition: 17:58
[2018-12-26 15:49] LABS: Basophils # (A) 0.1 k/uL (0-0.2); Basophils % (A) 1 %; Eosinophils # (A) 0.1 k/uL (0-0.7); Eosinophils % (A) 1 %; HCT 37.5 % (34.0-46.0); HGB 13.4 gm/dL (11.4-16.0); Lymphocytes # (A) 1.5 k/uL (1.0-4.8); Lymphocytes % (A) 16 %; MCH 31.1 pg (25.0-35.0); MCHC 35.8 g/dL (31.0-37.0); MCV 86.8 fL (80.0-100.0); Mean Platelet Volume 7.6; Monocytes # (A) 0.5 k/uL (0-1.0); Monocytes % (A) 5 %; Neutrophils # (A) 7.5 k/uL (1.3-7.7); Neutrophils % (A) 77 %; Platelet Count 154 k/uL (150-450); RBC 4.32 m/uL (3.80-5.40); WBC 9.8 k/uL (3.8-10.6)
[2018-12-26 15:55] LABS: ALT 7 U/L (9-52); AST 29 U/L (14-36); African American GFR (CKD) >90 (>60 ml/min/1.73 sqM); Albumin 3.7 g/dL (3.5-5.0); Alkaline Phosphatase 67 U/L (38-126); Anion Gap 8 mmol/L; Blood Urea Nitrogen 9 mg/dL (7-17); Calcium 9.1 mg/dL (8.4-10.2); Carbon Dioxide 21 mmol/L (22-30); Chloride 107 mmol/L (98-107); Glucose 79 mg/dL (74-99); Sodium 136 mmol/L (137-145); Total Bilirubin 0.8 mg/dL (0.2-1.3); Total Protein 6.7 g/dL (6.3-8.2)
[2018-12-26 15:58] LABS: Potassium 4.7 mmol/L (3.5-5.1)
[2018-12-26 16:05] LABS: INR 0.9 (<1.2); Prothrombin Time 9.6 sec (9.0-12.0)
[2018-12-26 16:06] LABS: Partial Thromboplastin Time 21.2 sec (22.0-30.0)
[2018-12-26 16:43] LABS: Amorphous Sediment,Urine Rare /hpf; Appearance,Urine Clear (Clear); Bacteria,Urine Occasional /hpf; Bilirubin,Urine Negative (Negative); Blood,Urine Negative (Negative); Color,Urine Yellow; Glucose,Urine (UA) Negative (Negative); Ketones,Urine Negative (Negative); Leukocyte Esterase,Urine Moderate (Negative); Mucus,Urine Rare /hpf; Nitrite,Urine Negative (Negative); PH, Urine 7.5 (5.0-8.0); Protein,Urine Trace (Negative); RBC,Urine 1 /hpf (0-5); Specific Gravity,Urine 1.015 (1.001-1.035); Squamous Epithelial Cell,Urine 10 /hpf (0-4); Urobilinogen,Urine <2.0 mg/dL (<2.0); WBC,Urine 34 /hpf (0-5)
--- NOTE | 2018-12-26 17:13 | US ---
EXAMINATION TYPE: US OB limited DATE OF EXAM: 12/26/2018 COMPARISON: 11/24/2018 CLINICAL HISTORY: 28-year-old female assess heart tones. EXAM PERFORMED: Transabdominal (TA) FINDINGS: GESTATIONAL AGE / DATING Physician Established: (21 weeks/4 days) EDC: 05/04/2019 No growth performed on today?s study per ordering physician HEART RATE: 150 bpm RHYTHM: Normal IMPRESSION: 1. Satisfactory heart tones with heart rate at 150 BPM. 2. No gross assessed on the present exam.
[2018-12-26 17:50] VITALS: BP 98/57; PULSE 85; RESP 14
== END 2018-12-26 18:29 | disposition other institution (70) ==
LOC: EC 15:00
DX: O99.89 Other specified diseases and conditions complicating pregnancy, childbirth and the puerperium (principal); R55 Syncope and collapse; R82.71 Bacteriuria; R11.0 Nausea; H53.8 Other visual disturbances; Z87.891 Personal history of nicotine dependence; Z3A.21 21 weeks gestation of pregnancy
CPT/HCPCS: 36415; 76815; 80053; 81001; 83605; 83735; 84484; 85025; 85610; 85730; 93005; 96360; 96361; 99285

== ENCOUNTER → 2019-01-26 | Outpatient (CLI) | payer SELFPAY | END | disposition home or self-care (01) | LOC: FBPOP 22:25 | PROVIDERS: ATTEND Obstetrics & Gynecology | DX: Z53.9 Procedure and treatment not carried out, unspecified reason (principal) ==

== ENCOUNTER 2019-03-07 16:30 | Outpatient (CLI) | payer SELFPAY ==
[2019-03-07 17:03] LABS: Appearance,Urine Clear (Clear); Bacteria,Urine Rare /hpf; Bilirubin,Urine Negative (Negative); Blood,Urine Negative (Negative); Color,Urine Yellow; Glucose,Urine (UA) Negative (Negative); Ketones,Urine 1+ (Negative); Leukocyte Esterase,Urine Trace (Negative); Mucus,Urine Rare /hpf; Nitrite,Urine Negative (Negative); Protein,Urine Trace (Negative); RBC,Urine <1 /hpf (0-5); Specific Gravity,Urine 1.025 (1.001-1.035); Squamous Epithelial Cell,Urine 1 /hpf (0-4); Urobilinogen,Urine <2.0 mg/dL (<2.0); WBC,Urine 1 /hpf (0-5)
[2019-03-07 17:38] VITALS: BP 116/68; PULSE 96; RESP 15; TEMP 97.6
--- NOTE | 2019-03-10 08:21 | P.MSEPDOC ---
Presenting Problems - Arrival Data Date of Arrival on Unit: 03/07/19 Time of Arrival on Unit: 16:40 Mode of Transport: Ambulatory - Complaint OB-Reason for Admission/Chief Complaint: Pain Medical History - Information : 4 Para: 2 Term: 2 : 0 Abortions: Spontaneous or Elective: 1 Number of Living Children: 2 - Gestational Age Gestational Age by MIREILLE (wks/days): 31 Weeks and 5 Days Review of Systems - Review of Systems Constitutional: No problems Breast: No problems ENT: No problems Cardiovascular: No problems Respiratory: No problems Gastrointestinal: No problems Genitourinary: No problems Musculoskeletal: No problems Neurological: No problems Skin: No problems Vital Signs - Temperature Temperature: 97.6 F Temperature Source: Temporal Artery Scan - Pulse Pulse Oximetery Pulse Rate: 96 Pulse Assessment Method: Pulse Oximetry - Respirations Respiratory Rate: 15 Oxygen Delivery Method: Room Air O2 Sat by Pulse Oximetry: 97 - Blood Pressure Right Arm Sitting Blood Pressure: 116/68 Blood Pressure Mean: 84 Blood Pressure Source: Automatic Cuff Medical Screen Scoring (Pre) - Cervical Exam Dilation: 0 cm = 0 Membranes: Intact - Uterine Contractions Frequency: N/A Duration: N/A Intensity: N/A - Maternal Vital Signs Maternal Temperature: N/A Maternal Blood Pressure: N/A Signs of Preeclampsia: N/A Maternal Respirations: N/A - Maternal Trauma Maternal Trauma: N/A - Assessment - Baby A Baseline FHR: 135 Heart Rate - NICHD Category: Category I (Normal) = 0 NST: Reactive Position: N/A Station: N/A - Total Score - Baby A Total Score - Baby A: 0 - Total Score - Baby B Total Score - Baby B: 0 - Total Score - Baby C Total Score - Baby C: 0 - Level of Risk - Baby A Level of Risk - Baby A: Low (0-5) - Level of Risk - Baby B Level of Risk - Baby B: Low (0-5) - Level of Risk - Baby C Level of Risk - Baby C: Low (0-5) Physician Notification (Pre) - Physician Notified Physician Notified Date: 03/07/19 Physician Notified Time: 17:20 New Order Received: Yes - Notification Comment Comment: pt here for cramping and back pain. U/A, cervical exam and FFN performed. reactive NST with no contx. orders received to dc pt home and have her orally hydrate per chel Grover. Pt needs to f/u in the office with her OB Dr Cardenas per t.oMerlyn Grover Disposition - Disposition OB Disposition: Physician follow up in office, Triage, Discharge to home, Rosmery moran follow up instructions reviewed Discharge Date: 03/07/19 Discharge Time: 17:30 I agree with the RN Medical Screening Exam: Yes Risk & Benefit of care provided described in d/c instruction: Yes Diagnosis: FALSE LABOR BEFORE 37 COMPLETED WEEKS OF GEST, THIRD TRI
== END 2019-03-07 17:30 | disposition home or self-care (01) ==
LOC: FBPOP 16:30
PROVIDERS: ATTEND Obstetrics & Gynecology
DX: O26.93 Pregnancy related conditions, unspecified, third trimester (principal); Z3A.31 31 weeks gestation of pregnancy
CPT/HCPCS: 59025; 81001; 99213

== ENCOUNTER 2019-08-11 04:50 | Emergency (ER) | payer OTHER ==
[2019-08-11 04:57] VITALS: BP 132/96; PULSE 81; RESP 18; TEMP 98.4
[2019-08-11] MEDS ORDERED: KETOROLAC 30 MG/ML 1 ML VIAL IM STA (05:04)
--- NOTE | 2019-08-11 05:16 | ED ---
General Adult HPI - General Chief complaint: Dental/Oral Stated complaint: Tooth pain Time Seen by Provider: 08/11/19 04:51 Source: patient, RN notes reviewed, old records reviewed Mode of arrival: ambulatory Limitations: no limitations - History of Present Illness Initial comments: 29-year-old female with 3 days of worsening pain left upper tooth. She states she has poor dentition and his had several teeth removed. She denies fever. Pain has been present for 3 days however she fractured this tooth many months ago and has had some intermittent pain. - Related Data Home Medications Medication Instructions Recorded Confirmed Pnv No.95/Ferrous Fum/Folic AC 1 tab PO DAILY 10/17/18 10/22/18 [ Multivitamin Tablet] Previous Rx's Medication Instructions Recorded Ibuprofen [Motrin] 600 mg PO Q8HR PRN #24 tab 08/11/19 Penicillin V Potassium [Pen Vee K] 500 mg PO QID 7 Days #28 tablet 08/11/19 Allergies Allergy/AdvReac Type Severity Reaction Status Date / Time No Known Allergies Allergy Verified 08/11/19 04:57 Review of Systems ROS Statement: Those systems with pertinent positive or pertinent negative responses have been documented in the HPI. ROS Other: All systems not noted in ROS Statement are negative. Past Medical History Past Medical History: No Reported History Additional Past Medical History / Comment(s): miscarriage, syncope History of Any Multi-Drug Resistant Organisms: None Reported Past Surgical History: Cholecystectomy Additional Past Surgical History / Comment(s): labia plas Past Anesthesia/Blood Transfusion Reactions: No Reported Reaction Past Psychological History: Anxiety Smoking Status: Never smoker Past Alcohol Use History: None Reported Past Drug Use History: None Reported - Past Family History Mother Family Medical History: Hypertension Additional Family Medical History / Comment(s): Lupus General Exam Limitations: no limitations General appearance: alert, in no apparent distress Head exam: Present: atraumatic, normocephalic Eye exam: Present: normal appearance, PERRL ENT exam: Present: other (Poor dentition, multiple dental caries, fractured left upper canine, minimal swelling at the gumline. No drainable abscess. No trismus, no facial swelling.) Neck exam: Present: normal inspection. Absent: tenderness, meningismus Respiratory exam: Present: normal lung sounds bilaterally. Absent: respiratory distress, wheezes Cardiovascular Exam: Present: regular rate, normal rhythm GI/Abdominal exam: Present: soft. Absent: distended, tenderness, guarding Course Vital Signs 08/11/19 04:55 Temperature 98.4 F Pulse Rate 81 Respiratory 18 Rate Blood Pressure 132/96 O2 Sat by Pulse 99 Oximetry Medical Decision Making - Medical Decision Making 29-year-old female with fractured left upper canine with suspected pulpitis. Patient is initiated on penicillin and will take NSAIDs. She does have plan for significant dental work and will follow-up with her dentist. Disposition Clinical Impression: Dental abscess, Dental caries, Fracture of tooth, Toothache Disposition: HOME SELF-CARE Condition: Good Instructions (If sedation given, give patient instructions): Dental Abscess ( ED), Toothache (ED) Additional Instructions: Please follow up with her dentist as soon as possible. Prescriptions: Ibuprofen [Motrin] 600 mg PO Q8HR PRN #24 tab PRN Reason: Pain Penicillin V Potassium [Pen Vee K] 500 mg PO QID 7 Days #28 tablet Is patient prescribed a controlled substance at d/c from ED?: No Referrals: None,Stated [Primary Care Provider] - 1-2 days Maximo Foster [STAFF PHYSICIAN] - 1-2 days Time of Disposition: 05:16
== END 2019-08-11 05:24 | disposition home or self-care (01) ==
LOC: EC 04:50
DX: K04.7 Periapical abscess without sinus (principal); K02.9 Dental caries, unspecified; S02.5XXA Fracture of tooth (traumatic), initial encounter for closed fracture; X58.XXXA Exposure to other specified factors, initial encounter
CPT/HCPCS: 99283; J1885

== ENCOUNTER 2020-01-05 10:19 | Emergency (ER) | payer OTHER ==
[2020-01-05 10:23] VITALS: BP 151/93; PULSE 51; RESP 16; TEMP 98.3
[2020-01-05] MEDS ORDERED: ACET/COD 300 MG/30 MG STARTER PACK 6 TAB BTL PO STA (11:02)
[2020-01-05] MEDS ORDERED: AMOXICILLIN 500 MG CAP PO STA (11:02)
[2020-01-05] MEDS ORDERED: KETOROLAC 15 MG/ML 1 ML VIAL IM STA (11:02)
--- NOTE | 2020-01-05 11:07 | ED ---
General Adult HPI - General Chief complaint: ENT Stated complaint: Tooth pain Time Seen by Provider: 01/05/20 10:32 Source: patient, RN notes reviewed Mode of arrival: ambulatory Limitations: no limitations - History of Present Illness Initial comments: 29-year-old female presents to the emergency room for dental pain. Patient reports she has poor dentition and is supposed to have all her teeth pulled. States they break easily. Patient states her a-month-old flung his head back and hit her incisor tooth. Reports that the back of it broke. Patient did see her dentist today but the pharmacy is 4 hours behind and she connected her antibiotic for 4 hours. States she needs something to help with the pain in the meantime. Patient did take Motrin around 4 AM. Denies taking any other pain medication. Denies fevers or chills. Denies sublingual edema. Denies neck stiffness. Denies trismus.Patient has no other complaints at this time includ ing shortness of breath, chest pain, abdominal pain, nausea or vomiting, headache, or visual changes. - Related Data Home Medications Medication Instructions Recorded Confirmed Pnv No.95/Ferrous Fum/Folic AC 1 tab PO DAILY 10/17/18 10/22/18 [ Multivitamin Tablet] Previous Rx's Medication Instructions Recorded Ibuprofen [Motrin] 600 mg PO Q8HR PRN #24 tab 08/11/19 Penicillin V Potassium [Pen Vee K] 500 mg PO QID 7 Days #28 tablet 08/11/19 Allergies Allergy/AdvReac Type Severity Reaction Status Date / Time No Known Allergies Allergy Verified 01/05/20 10:20 Review of Systems ROS Statement: Those systems with pertinent positive or pertinent negative responses have been documented in the HPI. ROS Other: All systems not noted in ROS Statement are negative. Past Medical History Past Medical History: No Reported History Additional Past Medical History / Comment(s): miscarriage, syncope History of Any Multi-Drug Resistant Organisms: None Reported Past Surgical History: Cholecystectomy Additional Past Surgical History / Comment(s): labia plas Past Anesthesia/Blood Transfusion Reactions: No Reported Reaction Past Psychological History: Anxiety Smoking Status: Never smoker Past Alcohol Use History: None Reported Past Drug Use History: Marijuana - Past Family History Mother Family Medical History: Hypertension Additional Family Medical History / Comment(s): Lupus General Exam Limitations: no limitations General appearance: alert, in no apparent distress Head exam: Present: atraumatic, normocephalic, normal inspection Eye exam: Present: normal appearance, PERRL, EOMI. Absent: scleral icterus, conjunctival injection, periorbital swelling ENT exam: Present: normal exam, mucous membranes moist, TM's normal bilaterally. Absent: normal oropharynx (Patient has poor dentition noted. tooth 7 cracked. No evidence of abscess. No sublingual edema. No trismus. Minimal right-sided anterior facial swelling) Course Vital Signs 01/05/20 10:20 Temperature 98.3 F Pulse Rate 51 L Respiratory 16 Rate Blood Pressure 151/93 O2 Sat by Pulse 100 Oximetry Medical Decision Making - Medical Decision Making Patient does have a cracked tooth. Patient already has a prescription for antibiotics. However she will be given a dose here as well as a Toradol injection. She adamantly denies chance of . She will be given Tylenol 3 for home. She is aware she cannot drive while taking these. She'll return here for any worsening symptoms and will otherwise follow-up with her dentist. Disposition Clinical Impression: Pain, dental Disposition: HOME SELF-CARE Condition: Good Instructions (If sedation given, give patient instructions): Toothache (ED) Additional Instructions: Please get your antibiotic from the dentist. Take motrin for pain. If pain is severe take Tylenol 3 for pain. [address] not drive or operate machinery while taking Tylenol pain. Return to the emergency room for any worsening symptoms. Follow up with her dentist. Is patient prescribed a controlled substance at d/c from ED?: No Referrals: Myah Garcia MD [REFERRING] - 1-2 days Time of Disposition: 11:06
== END 2020-01-05 11:21 | disposition home or self-care (01) ==
LOC: EC 10:19
DX: K08.89 Other specified disorders of teeth and supporting structures (principal); K03.81 Cracked tooth
CPT/HCPCS: 99282; 96372; J1885

== ENCOUNTER 2020-10-06 21:17 | Emergency (ER) | payer OTHER ==
[2020-10-06 21:22] VITALS: BP 123/73; PULSE 75; RESP 18; TEMP 98.4
[2020-10-06] MEDS ORDERED: DIPH,PERTUS(ACELL)TETVAC-LF 0.5 ML VIAL IM ONE (21:35)
--- NOTE | 2020-10-06 21:40 | ED ---
Wound/Laceration HPI - General Chief Complaint: Wound/Laceration Stated Complaint: L Foot Injury Time Seen by Provider: 10/06/20 21:23 Source: patient Mode of arrival: wheelchair Limitations: no limitations - History of Present Illness Initial Comments: 30-year-old male presents emergency Department with a chief complaint of an injury to her left foot. Patient reports she was taking garbage out and stepped on a metal post which had a piece of metal baldomero sticking out of it. States he went through her shoe and into the plantar aspect of her foot. She reports some pain but denies any paresthesias. States she is able to move her toes without any difficulties. Reports about less than 1 cm of intrusion of the foreign body into the foot. She was able to remove it herself. Her tetanus is not up-to-date. She denies - Related Data Home Medications Medication Instructions Recorded Confirmed Pnv No.95/Ferrous Fum/Folic AC 1 tab PO DAILY 10/17/18 10/22/18 [ Multivitamin Tablet] Previous Rx's Medication Instructions Recorded Ibuprofen [Motrin] 600 mg PO Q8HR PRN #24 tab 08/11/19 Penicillin V Potassium [Pen Vee K] 500 mg PO QID 7 Days #28 tablet 08/11/19 Allergies Allergy/AdvReac Type Severity Reaction Status Date / Time No Known Allergies Allergy Verified 10/06/20 21:20 Review of Systems ROS Statement: Those systems with pertinent positive or pertinent negative responses have been documented in the HPI. ROS Other: All systems not noted in ROS Statement are negative. Past Medical History Past Medical History: No Reported History Additional Past Medical History / Comment(s): miscarriage, syncope History of Any Multi-Drug Resistant Organisms: None Reported Past Surgical History: Cholecystectomy Additional Past Surgical History / Comment(s): labia plas Past Anesthesia/Blood Transfusion Reactions: No Reported Reaction Past Psychological History: Anxiety Smoking Status: Never smoker Past Alcohol Use History: None Reported Past Drug Use History: Marijuana - Past Family History Mother Family Medical History: Hypertension Additional Family Medical History / Comment(s): Lupus General Exam Limitations: no limitations General appearance: alert, in no apparent distress Head exam: Present: atraumatic, normocephalic, normal inspection Eye exam: Present: normal appearance, PERRL, EOMI Pupils: Present: normal accommodation ENT exam: Present: normal exam, normal oropharynx, mucous membranes moist Neck exam: Present: normal inspection, full ROM. Absent: tenderness, lymphadenopathy Respiratory exam: Present: normal lung sounds bilaterally. Absent: respiratory distress Cardiovascular Exam: Present: regular rate, normal rhythm, normal heart sounds. Absent: systolic murmur Extremities exam: Present: full ROM, tenderness (Tenderness at the injured site), normal capillary refill. Absent: normal inspection (Small puncture wound noted on the distal end of the plantar aspect of the left foot) Back exam: Present: normal inspection, full ROM. Absent: tenderness, CVA tenderness (R), CVA tenderness (L) Neurological exam: Present: alert, oriented X3 Psychiatric exam: Present: normal affect, normal mood Skin exam: Present: warm, dry, intact, normal color Course Vital Signs 10/06/20 21:20 Temperature 98.4 F Pulse Rate 75 Respiratory 18 Rate Blood Pressure 123/73 O2 Sat by Pulse 100 Oximetry Medical Decision Making - Medical Decision Making 30-year-old female presents to the emergency department with a chief complaint of left foot injury. Physical examination, she has small puncture wound. Considering the mechanism of injury, she will be started on ciprofloxacin. Advised her about the possible side effects of medication. Also updated her tetanus. Return parameters were thoroughly discussed the patient was up standing and agreeable. Case discussed with Dr. Mas Disposition Clinical Impression: Nail wound of left foot Disposition: HOME SELF-CARE Condition: Stable Instructions (If sedation given, give patient instructions): Ciprofloxacin (By mouth), Soft Tissue Foreign Body (ED) Additional Instructions: Prescribed medications directed. Return to emergency department if symptoms worsen. Is patient prescribed a controlled substance at d/c from ED?: No Referrals: None,Stated [Primary Care Provider] - 1-2 days Time of Disposition: 21:40
== END 2020-10-06 21:55 | disposition home or self-care (01) ==
LOC: EC 21:17
DX: S91.332A Puncture wound without foreign body, left foot, initial encounter (principal); F12.90 Cannabis use, unspecified, uncomplicated; Z23 Encounter for immunization; Z79.1 Long term (current) use of non-steroidal anti-inflammatories (NSAID); Z82.49 Family history of ischemic heart disease and other diseases of the circulatory system; W26.8XXA Contact with other sharp object(s), not elsewhere classified, initial encounter
CPT/HCPCS: 90471; 90715; 99283

== ENCOUNTER 2020-10-29 08:32 | Inpatient (IN) | payer OTHER ==
[2020-10-29] MEDS ORDERED: LORazepam 2 MG/ML INJ IV STA (09:01)
[2020-10-29] MEDS ORDERED: ONDANSETRON 4 MG/2 ML VIAL IVP STA ×3 (09:01→09:59)
[2020-10-29] MEDS ORDERED: SODIUM CHLORIDE 0.9% 1,000 ML IV STA (09:01)
[2020-10-29] MEDS ORDERED: FAMOTIDINE 20 MG/2 ML VIAL IV STA (09:01)
--- NOTE | 2020-10-29 09:08 | ED ---
General Adult HPI - General Chief complaint: Nausea/Vomiting/Diarrhea Stated complaint: Vomiting Time Seen by Provider: 10/29/20 08:39 Source: patient, RN notes reviewed Mode of arrival: wheelchair Limitations: no limitations - History of Present Illness Initial comments: Patient is a pleasant 30-year-old female presenting to the emergency Department with complaints of vomiting. Onset of symptoms was this morning. Patient has had similar symptoms over the past few weeks. Patient vomited at least 3 or 4 times a day. Patient still has some nausea. No abdominal pain. No diarrhea. No fever. No known . Patient also complains of feeling anxious. Patient feels tingly in her hands having cramping. Patient is out of her anxiety medication. Patient questions if she could've had a syncopal episode. Patient is not clear whether or not she fully passed out. No injury. Patient has passed out in the past however not recently. - Related Data Home Medications Medication Instructions Recorded Confirmed Pnv No.95/Ferrous Fum/Folic AC 1 tab PO DAILY 10/17/18 10/22/18 [ Multivitamin Tablet] Previous Rx's Medication Instructions Recorded Ibuprofen [Motrin] 600 mg PO Q8HR PRN #24 tab 08/11/19 Penicillin V Potassium [Pen Vee K] 500 mg PO QID 7 Days #28 tablet 08/11/19 Ciprofloxacin HCl [Cipro] 500 mg PO Q12HR #20 tablet 10/06/20 Allergies Allergy/AdvReac Type Severity Reaction Status Date / Time No Known Allergies Allergy Verified 10/29/20 08:37 Review of Systems ROS Statement: Those systems with pertinent positive or pertinent negative responses have been documented in the HPI. ROS Other: All systems not noted in ROS Statement are negative. Constitutional: Denies: fever Eyes: Denies: eye pain ENT: Denies: ear pain Respiratory: Denies: cough Gastrointestinal: Reports: nausea, vomiting. Denies: abdominal pain Musculoskeletal: Denies: back pain Skin: Denies: rash Psychiatric: Reports: anxiety Past Medical History Past Medical History: No Reported History Additional Past Medical History / Comment(s): miscarriage, syncope History of Any Multi-Drug Resistant Organisms: None Reported Past Surgical History: Cholecystectomy Additional Past Surgical History / Comment(s): labia plas Past Anesthesia/Blood Transfusion Reactions: No Reported Reaction Past Psychological History: Anxiety Smoking Status: Never smoker Past Alcohol Use History: None Reported Past Drug Use History: Marijuana - Past Family History Mother Family Medical History: Hypertension Additional Family Medical History / Comment(s): Lupus General Exam Limitations: no limitations General appearance: alert, in no apparent distress Head exam: Present: normocephalic Eye exam: Present: normal appearance Neck exam: Present: normal inspection Respiratory exam: Present: normal lung sounds bilaterally Cardiovascular Exam: Present: regular rate, normal rhythm Expanded Peripheral pulses: 2+: Radial (R), Radial (L), Dorsalis Pedis (R), Dorsalis Pedis (L) GI/Abdominal exam: Present: soft. Absent: tenderness Extremities exam: Present: normal inspection. Absent: pedal edema, calf tenderness Neurological exam: Present: alert, oriented X3, CN II-XII intact. Absent: motor sensory deficit Psychiatric exam: Present: anxious Skin exam: Present: normal color Course Vital Signs 10/29/20 10/29/20 08:33 09:16 Temperature 97.9 F Pulse Rate 76 45 L Respiratory 24 17 Rate Blood Pressure 125/71 116/66 O2 Sat by Pulse 98 100 Oximetry EKG Findings - EKG Comments: EKG Findings:: Sinus rhythm with a rate of 64. OK 134. QRS 84. QT 452. QTC 466. Normal axis. Normal QRS. No acute ST change. Medical Decision Making - Medical Decision Making Patient reevaluated and still not feeling well despite 2 doses of Zofran. Patient states she does not have her gallbladder. Patient updated on results and plan. Dr. pedroza has been paged for admission covering for hospital call. - Lab Data Result diagrams: 10/29/20 09:09 10/29/20 09:09 Lab Results 10/29/20 10/29/20 Range/Units 09:09 09:09 WBC 5.4 (3.8-10.6) k/uL RBC 5.10 (3.80-5.40) m/uL Hgb 15.3 (11.4-16.0) gm/dL Hct 43.5 (34.0-46.0) % MCV 85.3 (80.0-100.0) fL MCH 29.9 (25.0-35.0) pg MCHC 35.1 (31.0-37.0) g/dL RDW 12.3 (11.5-15.5) % Plt Count 211 (150-450) k/uL MPV 7.7 Neutrophils % 60 % Lymphocytes % 32 % Monocytes % 5 % Eosinophils % 2 % Basophils % 1 % Neutrophils # 3.2 (1.3-7.7) k/uL Lymphocytes # 1.7 (1.0-4.8) k/uL Monocytes # 0.3 (0-1.0) k/uL Eosinophils # 0.1 (0-0.7) k/uL Basophils # 0.0 (0-0.2) k/uL Sodium 142 (137-145) mmol/L Potassium 4.3 (3.5-5.1) mmol/L Chloride 105 (98-107) mmol/L Carbon Dioxide 21 L (22-30) mmol/L Anion Gap 16 mmol/L BUN 14 (7-17) mg/dL Creatinine 0.67 (0.52-1.04) mg/dL Est GFR (CKD-EPI)AfAm >90 (>60 ml/min/1.73 sqM) Est GFR (CKD-EPI)NonAf >90 (>60 ml/min/1.73 sqM) Glucose 113 H (74-99) mg/dL Calcium 10.7 H (8.4-10.2) mg/dL Total Bilirubin 0.4 (0.2-1.3) mg/dL AST 23 (14-36) U/L ALT 19 (4-34) U/L Alkaline Phosphatase 69 (38-126) U/L Total Protein 7.5 (6.3-8.2) g/dL Albumin 5.0 (3.5-5.0) g/dL Amylase 195 H (30-110) U/L Lipase 1093 H (23-300) U/L HCG, Quant <2.4 mIU/mL Disposition Clinical Impression: Vomiting, Pancreatitis Disposition: ADMITTED IP TO THIS HOSP Is patient prescribed a controlled substance at d/c from ED?: No Referrals: None,Stated [Primary Care Provider] - 1-2 days Decision Time: 10:24
[2020-10-29 09:16] LABS: Basophils % (A) 1 %; Eosinophils # (A) 0.1 k/uL (0-0.7); Eosinophils % (A) 2 %; HCT 43.5 % (34.0-46.0); HGB 15.3 gm/dL (11.4-16.0); Lymphocytes # (A) 1.7 k/uL (1.0-4.8); Lymphocytes % (A) 32 %; MCH 29.9 pg (25.0-35.0); MCHC 35.1 g/dL (31.0-37.0); MCV 85.3 fL (80.0-100.0); Mean Platelet Volume 7.7; Monocytes # (A) 0.3 k/uL (0-1.0); Monocytes % (A) 5 %; Neutrophils # (A) 3.2 k/uL (1.3-7.7); Neutrophils % (A) 60 %; Platelet Count 211 k/uL (150-450); RDW 12.3 % (11.5-15.5); WBC 5.4 k/uL (3.8-10.6)
[2020-10-29 09:36] LABS: AST 23 U/L (14-36); African American GFR (CKD) >90 (>60 ml/min/1.73 sqM); Alkaline Phosphatase 69 U/L (38-126); Amylase 195 U/L (30-110); Anion Gap 16 mmol/L; Blood Urea Nitrogen 14 mg/dL (7-17); Calcium 10.7 mg/dL (8.4-10.2); Carbon Dioxide 21 mmol/L (22-30); Chloride 105 mmol/L (98-107); Glucose 113 mg/dL (74-99); Lipase 1093 U/L (23-300); Non-African American GFR(CKD) >90 (>60 ml/min/1.73 sqM); Potassium 4.3 mmol/L (3.5-5.1); Sodium 142 mmol/L (137-145); Total Bilirubin 0.4 mg/dL (0.2-1.3); Total Protein 7.5 g/dL (6.3-8.2)
[2020-10-29 09:48] LABS: ALT 19 U/L (4-34)
[2020-10-29 09:52] LABS: HCG,Quantitative Serum <2.4 mIU/mL
[2020-10-29] MEDS ORDERED: NALOXONE 0.4 MG/ML 1 ML VIAL IV PRN (10:25)
[2020-10-29] MEDS ORDERED: ONDANSETRON 4 MG/2 ML VIAL IVP PRN ×2 (10:25→14:45)
[2020-10-29 10:33] LABS: Appearance,Urine Clear (Clear); Bilirubin,Urine Negative (Negative); Blood,Urine Negative (Negative); Color,Urine Light Yellow; Glucose,Urine (UA) Negative (Negative); Ketones,Urine Trace (Negative); Leukocyte Esterase,Urine Negative (Negative); Nitrite,Urine Negative (Negative); PH, Urine 8.5 (5.0-8.0); Protein,Urine Negative (Negative); Specific Gravity,Urine 1.014 (1.001-1.035); Urobilinogen,Urine <2.0 mg/dL (<2.0)
[2020-10-29] MEDS ORDERED: METOCLOPRAMIDE 5 MG/ML 2 ML VIAL IVP STA (11:17)
--- NOTE | 2020-10-29 11:17 | US ---
EXAMINATION TYPE: US abdomen limited DATE OF EXAM: 10/29/2020 COMPARISON: NONE CLINICAL HISTORY: eval pancreas. Severe abdominal pain with Nausea and vomiting today, diarrhea; gall bladder removed EXAM MEASUREMENTS: Liver Length: 15.6 cm Gallbladder Wall: surgically removed CBD: 0.4 cm Right Kidney: 9.8 x 4.0 x 4.0 cm Pancreas: wnl Liver: wnl Gallbladder: surgically removed Evidence for sonographic Pimentel's sign: no CBD: wnl Right Kidney: wnl IMPRESSION: 1. Normal postcholecystectomy right upper quadrant ultrasound
[2020-10-29] MEDS: SODIUM CHLORIDE 0.9% 1,000 ML IV SCH ×2 (11:20→23:42)
[2020-10-29] MEDS ORDERED: HYDROmorphone 0.5 MG/0.5 ML SYRINGE IVP PRN (14:08)
[2020-10-29] MEDS: MORPHINE SULFATE 4 MG/ML SYRINGE IV PRN ×2 (15:28→20:38)
[2020-10-29] MEDS ORDERED: IOPAMIDOL CONTRAST (ORAL USE) VIAL PO PRN (15:35)
[2020-10-29 16:36] LABS: Amphetamine Screen,Urine Not Detected (NotDetected); Barbiturate Screen,Urine Not Detected (NotDetected); Benzodiazepines Screen,Urine Not Detected (NotDetected); Cocaine Screen,Urine Not Detected (NotDetected); Methadone Screen, Urine Not Detected (NotDetected); Opiate Screen,Urine Not Detected (NotDetected); Oxycodone Screen, Urine Not Detected (NotDetected); Phencyclidine Screen,Urine Not Detected (NotDetected); Tricyclic Antidepressant,Urine Not Detected (NotDetected); Urn Cannabinoid Scrn Detected (NotDetected)
[2020-10-29] MEDS ORDERED: METOCLOPRAMIDE 5 MG/ML 2 ML VIAL IVP PRN (16:42)
--- NOTE | 2020-10-29 17:11 | P.GSCN ---
History of Present Illness Consult date: 10/29/20 History of present illness: Surgery is consulted for intractable nausea and vomiting with pancreatitis. She reports moderated abdominal pain generalized from wretching. At the time of my assessment, she has intractable emesis, yellow bile. ABDOMEN: No peritonitis. LABS: Reviewed. Lipase over 1000 STUDIES: Ultrasound of the abdomen independently reviewed with CBD within normal limits. Gallbladder surgically absent. This is my independent interpretation. ASSESSMENT: 1. Acute pancreatitis PLAN: 1. For nausea, 2-L normal saline bolus for re-hydration 2. Scopolamine patch for nausea 3. Decadron 10 mg IV x 1 dose for severe nausea 4. Tigan 200 mg IM prn for nausea and vomiting advised. 5. Reglan 10 mg IV scheduled prescribed.. Past Medical History Past Medical History: No Reported History Additional Past Medical History / Comment(s): miscarriage, syncope..Pt had syncopal episode when and she had seen rail track layer for braycardia..unsure of outcome..pt states "I'm not annabella good with following up with Christopher" History of Any Multi-Drug Resistant Organisms: None Reported Past Surgical History: Cholecystectomy Additional Past Surgical History / Comment(s): labia plas Past Anesthesia/Blood Transfusion Reactions: No Reported Reaction Past Psychological History: Anxiety Smoking Status: Never smoker Past Alcohol Use History: None Reported Past Drug Use History: Marijuana - Past Family History Mother Family Medical History: Hypertension Additional Family Medical History / Comment(s): Lupus Father History Unknown: Yes Family Medical History: Hypertension Medications and Allergies Home Medications Medication Instructions Recorded Confirmed Type No Known Home Medications 10/29/20 10/29/20 History Allergies Allergy/AdvReac Type Severity Reaction Status Date / Time No Known Allergies Allergy Verified 10/29/20 10:42 Surgical - Exam Vital Signs Temp Pulse Resp BP Pulse Ox 97.9 F 76 24 125/71 98 10/29/20 08:33 10/29/20 08:33 10/29/20 08:33 10/29/20 08:33 10/29/20 08:33 Results - Labs 10/29/20 09:09 10/29/20 09:09 Abnormal Lab Results - Last 24 Hours (Table) 10/29/20 10/29/20 10/29/20 Range/Units 09:09 09:09 15:07 Carbon Dioxide 21 L (22-30) mmol/L Glucose 113 H (74-99) mg/dL Calcium 10.7 H (8.4-10.2) mg/dL Amylase 195 H (30-110) U/L Lipase 1093 H (23-300) U/L Urine pH 8.5 H (5.0-8.0) Urine Ketones Trace H (Negative) U Marijuana (THC) Screen Detected H (NotDetected) Diabetes panel 10/29/20 Range/Units 09:09 Sodium 142 (137-145) mmol/L Potassium 4.3 (3.5-5.1) mmol/L Chloride 105 (98-107) mmol/L Carbon Dioxide 21 L (22-30) mmol/L BUN 14 (7-17) mg/dL Creatinine 0.67 (0.52-1.04) mg/dL Glucose 113 H (74-99) mg/dL Calcium 10.7 H (8.4-10.2) mg/dL AST 23 (14-36) U/L ALT 19 (4-34) U/L Alkaline Phosphatase 69 (38-126) U/L Total Protein 7.5 (6.3-8.2) g/dL Albumin 5.0 (3.5-5.0) g/dL Calcium panel 10/29/20 Range/Units 09:09 Calcium 10.7 H (8.4-10.2) mg/dL Albumin 5.0 (3.5-5.0) g/dL Pituitary panel 10/29/20 Range/Units 09:09 Sodium 142 (137-145) mmol/L Potassium 4.3 (3.5-5.1) mmol/L Chloride 105 (98-107) mmol/L Carbon Dioxide 21 L (22-30) mmol/L BUN 14 (7-17) mg/dL Creatinine 0.67 (0.52-1.04) mg/dL Glucose 113 H (74-99) mg/dL Calcium 10.7 H (8.4-10.2) mg/dL Adrenal panel 10/29/20 Range/Units 09:09 Sodium 142 (137-145) mmol/L Potassium 4.3 (3.5-5.1) mmol/L Chloride 105 (98-107) mmol/L Carbon Dioxide 21 L (22-30) mmol/L BUN 14 (7-17) mg/dL Creatinine 0.67 (0.52-1.04) mg/dL Glucose 113 H (74-99) mg/dL Calcium 10.7 H (8.4-10.2) mg/dL Total Bilirubin 0.4 (0.2-1.3) mg/dL AST 23 (14-36) U/L ALT 19 (4-34) U/L Alkaline Phosphatase 69 (38-126) U/L Total Protein 7.5 (6.3-8.2) g/dL Albumin 5.0 (3.5-5.0) g/dL
[2020-10-29 17:28] LABS: ALT 12 U/L (4-34); AST 21 U/L (14-36); African American GFR (CKD) >90 (>60 ml/min/1.73 sqM); Albumin 4.3 g/dL (3.5-5.0); Alkaline Phosphatase 58 U/L (38-126); Amylase 80 U/L (30-110); Anion Gap 11 mmol/L; Blood Urea Nitrogen 13 mg/dL (7-17); Calcium 9.3 mg/dL (8.4-10.2); Carbon Dioxide 19 mmol/L (22-30); Chloride 111 mmol/L (98-107); Glucose 130 mg/dL (74-99); Lipase 95 U/L (23-300); Non-African American GFR(CKD) >90 (>60 ml/min/1.73 sqM); Potassium 3.9 mmol/L (3.5-5.1); Sodium 141 mmol/L (137-145); Total Bilirubin 0.8 mg/dL (0.2-1.3); Total Protein 6.6 g/dL (6.3-8.2)
[2020-10-29] MEDS ORDERED: DEXAMETHASONE SOD PHOSPHATE 10 MG/ML 1 ML VIAL IV ONE (17:30)
[2020-10-29] MEDS ORDERED: SODIUM CHLORIDE 0.9% 2,000 ML IV ONE (17:30)
--- NOTE | 2020-10-29 17:37 | HP ---
HISTORY AND PHYSICAL DATE OF SERVICE: 10/29/2020 CHIEF COMPLAINT: Nausea, vomiting, as well as abdominal discomfort. HISTORY OF PRESENT ILLNESS: 30-year-old woman with a past medical history of multiple medical problems including cholecystectomy and as well as episodes of bradycardia while . History of anxiety, and history of THC, not being followed by any primary physician. The patient is complaining of nausea almost every day for the last several years. The patient apparently smoking THC for the last 10 years and today the patient had significant abdominal pain, which is felt in the epigastrium. Patient was nauseous, unable to keep anything down. The patient actually vomited 3 or 4 times. The patient came to [facility]. Patient has features of acute pancreatitis and the patient admitted for evaluation and treatment. The patient also had ultrasound of the abdomen, showed only cholecystectomy changes, no acute changes. There is no history of fever, rigors, chills at this time. PAST MEDICAL HISTORY: Cholecystectomy, history of anxiety. MEDICATIONS: Prior to admission, none. ALLERGIES: None. FAMILY HISTORY: History of hypertension, lupus in the family. SOCIAL HISTORY: History of THC. No history of smoking. No history of alcohol intake. REVIEW OF SYSTEMS: ENT: No diminished vision. CARDIOVASCULAR: No angina. RESPIRATION: No cough, hemoptysis GI: As mentioned earlier. : No dysuria. NERVOUS SYSTEM: No numbness, weakness. ALLERGY: No asthma or hayfever. MUSCULOSKELETAL: As mentioned. DERMATOLOGY: ( ). ENDOCRINE: As mentioned earlier. CONSTITUTIONAL: As mentioned earlier. PSYCHIATRIC: As mentioned. PHYSICAL EXAMINATION: Alert, oriented x3, pulse is 53, blood pressure 120/77 respiration 18, temperature 97.9, pulse ox 98% on room air. HEENT: Conjunctivae normal. Oral mucosa moist. NECK: No jugular venous distention. No lymph nodes. CARDIOVASCULAR SYSTEM: S1, S2 muffled. RESPIRATORY: Diminished breath sounds in the bases. No rhonchi. No crackles. ABDOMEN: Soft. Mild diffuse discomfort felt. No guarding. No rigidity. No mass palpable. LEGS: No edema, no swelling. NERVOUS SYSTEM: Higher functions as mentioned earlier. Moves all four limbs. No focal motor deficits. LYMPHATICS: No lymph nodes. SKIN: No rashes. JOINTS: No active arthropathy. LABS: At this time show CBC within normal limits. Sodium 142, potassium 4.3. Calcium is 10.7. Amylase, lipase noted. ASSESSMENT: 1. Acute severe pancreatitis with abdominal pain. 2. Nausea, vomiting, possible acute gastritis. 3. Dehydration, present on admission. 4. Sinus arrhythmia. 5. Hypocalcemia. 6. Elevated amylase, lipase. 7. History of cholecystectomy. 8. History of syncopal episode and bradycardia. 9. Anxiety. RECOMMENDATIONS AND DISCUSSION: This 30-year-old woman who presented with multiple complex medical issues, we will monitor the patient closely, continue the current management and treatment. Keep the patient n.p.o. except medications. Gastroenterology consultation. I would also recommend a 2D echo and ask for Cardiology evaluation also. CT scan of the abdomen and pelvis with p.o. and oral contrast also recommended. THC cessation also been recommended, otherwise recommend close followup with the primary in outpatient setting. Prognosis guarded because of multiple complex medical problems. DVT prophylaxis. See orders for details. Further recommendations to follow. MMODL / IJN: [id number] /
[2020-10-29] MEDS: METOCLOPRAMIDE 5 MG/ML 2 ML VIAL IVP SCH ×2 (18:16→23:42)
[2020-10-29] MEDS: SCOPOLAMINE 1.5MG/72HR PATCH TRANSDERM SCH (18:16)
[2020-10-29 20:34] LABS: Creatine Kinase 83 U/L (30-135)
[2020-10-29] MEDS: PANTOPRAZOLE 40 MG/10 ML VIAL IVP SCH (20:37)
[2020-10-29] MEDS: HEPARIN SODIUM,PORCINE/PF 5,000 UNIT/0.5 ML SYRINGE SQ SCH (20:37)
[2020-10-29 20:48] LABS: Creatine Kinase MB 0.8 ng/mL (0.0-2.4); Troponin I <0.012 ng/mL (0.000-0.034)
[2020-10-30 05:34] LABS: Basophils % (A) 0 %; Eosinophils % (A) 0 %; HCT 40.6 % (34.0-46.0); HGB 13.7 gm/dL (11.4-16.0); Lymphocytes % (A) 10 %; MCH 29.2 pg (25.0-35.0); MCHC 33.6 g/dL (31.0-37.0); Mean Platelet Volume 8.1; Monocytes # (A) 0.4 k/uL (0-1.0); Monocytes % (A) 4 %; Neutrophils # (A) 8.4 k/uL (1.3-7.7); Neutrophils % (A) 86 %; Platelet Count 194 k/uL (150-450); RBC 4.67 m/uL (3.80-5.40); RDW 12.5 % (11.5-15.5); WBC 9.9 k/uL (3.8-10.6)
[2020-10-30] MEDS: METOCLOPRAMIDE 5 MG/ML 2 ML VIAL IVP SCH ×2 (05:34→11:53)
[2020-10-30] MEDS: HEPARIN SODIUM,PORCINE/PF 5,000 UNIT/0.5 ML SYRINGE SQ SCH ×2 (07:41→20:25)
[2020-10-30] MEDS: ONDANSETRON 4 MG/2 ML VIAL IVP PRN ×2 (07:41→18:11)
[2020-10-30] MEDS: PANTOPRAZOLE 40 MG/10 ML VIAL IVP SCH ×2 (07:41→20:25)
[2020-10-30] MEDS ORDERED: PANTOPRAZOLE 40 MG/10 ML VIAL IV SCH (09:00)
[2020-10-30 10:33] LABS: African American GFR (CKD) 135.7 (60.0-200.0); Albumin 4.2 g/dL (3.80-4.90); Albumin/Globulin Ratio 2.1 (1.60-3.17); Anion Gap 8.5 mmol/L (4.00-12.00); BUN/Creat Ratio 18.57 Ratio (12.00-20.00); Calcium 8.6 mg/dL (8.7-10.3); Carbon Dioxide 24.5 mmol/L (21.6-31.8); Non-African American GFR(CKD) 117.1 (60.0-200.0); Potassium 4.2 mmol/L (3.5-5.5); Total Bilirubin 0.8 mg/dL (0.2-1.2); Total Protein 6.2 g/dL (6.2-8.2)
[2020-10-30] MEDS: SODIUM CHLORIDE 0.9% 1,000 ML IV SCH ×2 (11:04→18:08)
--- NOTE | 2020-10-30 12:01 | P.CRDCN ---
History of Present Illness History of present illness: HISTORY OF PRESENTING ILLNESS This is a pleasant 30-year-old female past medical history significant for daily marijuana use. She was seen by Dr. Ventura October 2018 in the hospital. She did follow up in the office one time and was recommended to have an echocardiogram for which she did not show up to her appointment. We have been asked to see in consultation for sinus arrhythmia. She presented to the hospital with symptoms of nausea, vomiting and abdominal pain. She has been diagnosed and is being treated for pancreatitis. Abdominal ultrasound was unremarkable. EKG reveals sinus rhythm heart rate of 64 with sinus arrhythmia. Telemetry tracings reviewed and reveal sinus bradycardia with heart rate in the 50s with frequent PVCs. According to nursing staff. Her PVCs occur when she is vomiting. Laboratory data reviewed, CBC unremarkable, sodium 143, potassium 4.2, creatinin e 0.7, lipase on admission 1090 3 repeat today 33. She takes no daily cardiac medications. REVIEW OF SYSTEMS At the time of my exam: CONSTITUTIONAL: Denies fever or chills. CARDIOVASCULAR: Denies chest pain, shortness of breath, orthopnea, PND or palpitations. RESPIRATORY: Denies cough. GASTROINTESTINAL: Complains of nausea and vomiting and abdominal pain. MUSCULOSKELETAL: Denies myalgias. NEUROLOGIC: Denies numbness, tingling, headacbe or weakness. ENDOCRINE: Denies fatigue, weight change, polydipsia or polyurina. GENITOURINARY: Denies burning, hematuria or urgency with micturation. HEMATOLOGIC: Denies history of anemia or bleeding. PHYSICAL EXAMINATION Blood pressure 99/59 heart rate 51 afebrile and maintaining oxygen saturation on room air. CONSTITUTIONAL: No apparent distress. HEENT: Head is normocephalic. Pupils are equal, round. Sclerae anicteric. Mucous membranes of the mouth are moist. No JVD. No carotid bruit. CHEST EXAMINATION: Lungs are clear to auscultation. No chest wall tenderness is noted on palpation or with deep breathing. HEART EXAMINATION: Regular rate and rhythm. S1, S2 heard. No murmurs, gallops or rub. ABDOMEN: Soft, nontender. Positive bowel sounds. EXTREMITIES: 2+ peripheral pulses, no lower extremity edema and no calf tenderness. NEUROLOGIC EXAMINATION: Patient is awake, alert and oriented x3. ASSESSMENT PVC's Sinus arrhythmia with sinus bradycardia associated with vomiting and vagal stimulation Pancreatitis Marijuana dependence PLAN Check TSH. Obtain 2D echocardiogram and doppler study to assess cardiac structure and function. Ongoing treatment of acute pancreatitis. No acute interventions from a cardiac perspective. Further outpatient testing when her pancreatitis has resolved. Follow up with Dr. Ventura. Thank you kindly for this consultation. Nurse Practitioner note has been reviewed, I agree with a documented findings and plan of care. Patient was seen and examined. Past Medical History Past Medical History: No Reported History Additional Past Medical History / Comment(s): miscarriage, syncope..Pt had syncopal episode when and she had seen sales floor associate for braycardia..unsure of outcome..pt states "I'm not annabella good with following up wi th Dr's" History of Any Multi-Drug Resistant Organisms: None Reported Past Surgical History: Cholecystectomy Additional Past Surgical History / Comment(s): labia plas Past Anesthesia/Blood Transfusion Reactions: No Reported Reaction Past Psychological History: Anxiety Smoking Status: Never smoker Past Alcohol Use History: None Reported Past Drug Use History: Marijuana - Past Family History Mother Family Medical History: Hypertension Additional Family Medical History / Comment(s): Lupus Father History Unknown: Yes Family Medical History: Hypertension Medications and Allergies Home Medications Medication Instructions Recorded Confirmed Type No Known Home Medications 10/29/20 10/29/20 History Allergies Allergy/AdvReac Type Severity Reaction Status Date / Time No Known Allergies Allergy Verified 10/29/20 10:42 Physical Exam Vitals: Vital Signs Temp Pulse Resp BP BP Pulse Ox 10/30/20 11:27 98.5 F 51 L 18 99/59 99 10/30/20 05:00 97.4 F L 50 L 18 96/60 99 10/29/20 20:45 98/59 10/29/20 20:15 58 L 18 10/29/20 19:50 98.8 F 58 L 18 82/49 88/54 98 10/29/20 18:51 43 L 18 10/29/20 17:54 98.1 F 43 L 18 116/76 10/29/20 15:35 97.6 F 42 L 18 114/67 100 10/29/20 14:00 49 L 10/29/20 11:54 97.9 F 49 L 20 130/76 100 Intake and Output 10/29/20 10/30/20 10/30/20 22:59 06:59 14:59 Intake Total 0 900 Output Total 304 Balance -304 900 Intake: Intake, IV Titration 900 Amount Sodium Chloride 0.9% 1, 900 000 ml @ 75 mls/hr IV . [id number] [facility] Rx#:[id number] Oral 0 0 Output: Emesis 304 Other: Voiding Method Toilet # Voids 2 2 Results 10/30/20 04:58 10/30/20 04:58 Cardiac Enzymes 10/29/20 10/29/20 10/30/20 Range/Units 16:52 19:53 04:58 AST 21 18 (14-36) U/L CK-MB (CK-2) 0.8 (0.0-2.4) ng/mL Troponin I <0.012 (0.000-0.034) ng/mL CBC 10/30/20 Range/Units 04:58 WBC 9.9 (3.8-10.6) k/uL RBC 4.67 (3.80-5.40) m/uL Hgb 13.7 (11.4-16.0) gm/dL Hct 40.6 (34.0-46.0) % Plt Count 194 (150-450) k/uL Comprehensive Metabolic Panel 10/29/20 10/30/20 Range/Units 16:52 04:58 Sodium 141 143 (137-145) mmol/L Potassium 3.9 4.2 (3.5-5.1) mmol/L Chloride 111 H 110 H (98-107) mmol/L Carbon Dioxide 19 L 24.5 (22-30) mmol/L BUN 13 13.0 (7-17) mg/dL Creatinine 0.52 0.7 (0.52-1.04) mg/dL Glucose 130 H 104 (74-99) mg/dL Calcium 9.3 8.6 L (8.4-10.2) mg/dL AST 21 18 (14-36) U/L ALT 12 10 (4-34) U/L Alkaline Phosphatase 58 57 (38-126) U/L Total Protein 6.6 6.2 (6.3-8.2) g/dL Albumin 4.3 4.20 (3.5-5.0) g/dL Current Medications Generic Name Dose Route Start Last Admin Trade Name Freq PRN Reason Stop Dose Admin Heparin Sodium (Porcine) 5,000 unit 10/29/20:00 10/30/20 07:41 Heparin Sodium,Porcine/Pf 5,000 Unit/0.5 Ml Syringe SQ 5,000 unit Q12HR [facility] Administration Hydromorphone HCl 0.5 mg 10/29/20 14:08 Hydromorphone 0.5 Mg/0.5 Ml Syringe IVP Q3HR PRN Severe Pain Sodium Chloride 1,000 mls @ 150 mls/hr 10/29/20 10:30 10/30/20 11:04 Saline 0.9% IV 150 mls/hr .[id number] [facility] Administration Iopamidol 30 ml 10/29/20 15:35 Iopamidol Contrast (Oral Use) Vial PO 10/30/20 15:[address] Scan Lorazepam 0.5 mg 10/29/20 10:25 Lorazepam 2 Mg/Ml Inj IV Q6HR PRN Anxiety Metoclopramide HCl 10 mg 10/29/20 18:00 10/30/20 05:34 Metoclopramide 5 Mg/Ml 2 Ml Vial IVP 10 mg Q6H [facility] Administration Morphine Sulfate 4 mg 10/29/20 10:25 10/29/20 20:38 Morphine Sulfate 4 Mg/Ml Syringe IV 4 mg Q4HR PRN Administration Severe Pain Naloxone HCl 0.2 mg 10/29/20 10:25 Naloxone 0.4 Mg/Ml 1 Ml Vial IV Q2M PRN Opioid Reversal Ondansetron HCl 4 mg 10/29/20 15:20 10/30/20 07:41 Ondansetron 4 Mg/2 Ml Vial IVP 4 mg Q4HR PRN Administration Nausea And Vomiting Pantoprazole Sodium 40 mg 10/29/20 21:00 10/30/20 07:41 Pantoprazole 40 Mg/10 Ml Vial IVP 40 mg BID [facility] Administration Scopolamine 1 patch 10/29/20 17:30 10/29/20 18:16 Scopolamine 1.5mg/72hr Patch TRANSDERM 1 patch Q72H [facility] Administration Trimethobenzamide HCl 200 mg 10/29/20 17:11 Trimethobenzamide 100 Mg/Ml 2 Ml Vial IM Q6HR PRN Nausea Intake and Output 10/29/20 10/30/20 10/30/20 22:59 06:59 14:59 Intake Total 0 900 Output Total 304 Balance -304 900 Intake: Intake, IV Titration 900 Amount Sodium Chloride 0.9% 1, 900 000 ml @ 75 mls/hr IV . [id number] [facility] Rx#:[id number] Oral 0 0 Output: Emesis 304 Other: Voiding Method Toilet # Voids 2 2 10/30/20 04:58 10/30/20 04:58
[2020-10-30] MEDS ORDERED: TRIMETHOBENZAMIDE 100 MG/ML 2 ML VIAL IM STA (12:58)
--- NOTE | 2020-10-30 13:21 | P.PN ---
Subjective Progress Note Date: 10/30/20 CHIEF COMPLAINT: Nausea and vomiting HISTORY OF PRESENT ILLNESS: Surgical service is following regards to patient's intractable nausea and vomiting with pancreatitis. Patient reports that she still having nausea and vomiting. She had episode of emesis that was bile and now is having dry heaves. She reports that symptoms are worse after the Reglan. She has a prior history of cholecystectomy. Medicine service has ordered a Computed tomography scan abdomen and pelvis. Patient is currently on a clear liquid diet. Her white count is normal at 9.9. Her lipase has normalized. PHYSICAL EXAM: VITAL SIGNS: Reviewed GENERAL: Well-developed in no acute distress. HEENT: No sclera icterus. Extraocular movements grossly intact. Moist buccal mucosa. Head is atraumatic, normocephalic. Hears conversational speech. No nasal drainage. NECK: Supple without lymphadenopathy. CHEST: Non-labored respirations and equal bilateral excursions. CARDIOVASCULAR: Palpable 2+ radial pulses. ABDOMEN: Soft. Nondistended. MUSCULOSKELETAL: No clubbing or cyanosis. NEUROLOGIC: No focal or lateralizing signs. Cranial nerves II through XII grossly intact. PSYCH: Appropriate affect. Alert and oriented to person, place and time. SKIN: Well perfused. Good skin turgor. ASSESSMENT: 1. Acute pancreatitis 2. Intractable nausea and vomiting PLAN: -We'll give 1 dose of IV Tigan and then continue as needed -Discontinue Reglan -Continue the scopolamine patch -Continue IV fluids Physician Historic Sites Registrar note has been reviewed by physician. Signing provider agrees with the documented findings, assessment, and plan of care. Objective - Vital Signs Vital signs: Vital Signs Temp 98.5 F 10/30/20 11:27 Pulse 51 L 10/30/20 11:27 Resp 18 10/30/20 11:27 BP 99/59 10/30/20 11:27 Pulse Ox 99 10/30/20 11:27 Intake & Output 10/29/20 10/30/20 10/30/20 18:59 06:59 18:59 Intake Total 0 900 Output Total 304 Balance -304 900 Weight 63.503 kg Intake: Intake, IV Titration 900 Amount Sodium Chloride 0.9% 1, 900 000 ml @ 75 mls/hr IV . [id number] [facility] Rx#:[id number] Oral 0 0 Output: Emesis 304 Other: Voiding Method Toilet Toilet # Voids 2 2 - Labs CBC & Chem 7: 10/30/20 04:58 10/30/20 04:58 Labs: Abnormal Lab Results - Last 24 Hours (Table) 10/29/20 10/29/20 10/30/20 Range/Units 15:07 16:52 04:58 Neutrophils # 8.4 H (1.3-7.7) k/uL Chloride 111 H (98-107) mmol/L Carbon Dioxide 19 L (22-30) mmol/L Glucose 130 H (74-99) mg/dL Calcium (8.7-10.3) mg/dL U Marijuana (THC) Screen Detected H (NotDetected) 10/30/20 Range/Units 04:58 Neutrophils # (1.3-7.7) k/uL Chloride 110 H (98-107) mmol/L Carbon Dioxide (22-30) mmol/L Glucose (74-99) mg/dL Calcium 8.6 L (8.7-10.3) mg/dL U Marijuana (THC) Screen (NotDetected)
--- NOTE | 2020-10-30 15:33 | CT ---
EXAMINATION TYPE: CT abdomen pelvis w con DATE OF EXAM: 10/30/2020 COMPARISON: None INDICATION: Abdominal pain DLP: 444.90 mGycm, Automated exposure control for dose reduction was used. CONTRAST: 100 mL of Isovue 300. Study performed without Oral Contrast TECHNIQUE: Axial images were obtained from above the diaphragm to the pubic rami in the axial plane a t 5 mm thick sections. Reconstructed images are reviewed on the computer in the coronal plane. FINDINGS: Limited CT sections are obtained the lung bases. The lung bases are clear. CT ABDOMEN: Liver: Normal Spleen: Normal Pancreas: Normal Adrenal glands: The adrenal glands are normal. Gallbladder: Surgically absent Kidneys: No masses are evident. No hydronephrosis is present. No cysts are present. Delayed images were obtained through the kidneys, which remain unremarkable. Aorta: Normal Inferior vena cava: Normal. CT PELVIS: Loops of bowel within the abdomen and pelvis are normal. This study is performed lateral contrast limiting bowel evaluation. Appendix: Normal as visualized. Urinary bladder: Normal. Genitourinary structures: Uterus appears normal. Adnexal regions are clear. Small follicles may be on the ovaries. Osseous structures: No suspicious lytic or sclerotic lesions. IMPRESSIONS: 1. No suspicious radiographic abnormality to account for abdomen pain
--- NOTE | 2020-10-30 17:54 | P.CONS ---
History of Present Illness - Reason for Consult Consult date: 10/30/20 Pancreatitis Requesting physician: Doc Orourke - Chief Complaint Abdominal pain, nausea and vomiting - History of Present Illness SC pleasant 30-year-old white female who presented to the emergency department yesterday morning with complaints of nausea and vomiting which began 2-3 weeks ago. She has no significant past medical history other then anxiety and marijuana use. Yesterday she started feeling pain in the center of her ribs and started having severe nausea with vomiting several times. She has history of cholecystectomy in 2013 for gallstones. On admission she was noted to have an elevated lipase. Ultrasound of the gallbladder was obtained showing normal postcholecystectomy right upper quadrant ultrasound. She has no previous history of pancreatitis, reports no new medications, and no alcohol use. Admitting labs to be a BC 5.4, hemoglobin 15.3, hematocrit 4 43.5, platelet count 211,000, lipase 1093, with a repeat at 95, total bilirubin 0.8, alkaline phosphatase 58, AST 21, ALT 12. Patient reports abdominal pain has improved some, she is still having nausea and vomiting, she is dry heaving. She denies any diarrhea, last bowel movement yesterday. Denies any fevers or chills. Review of Systems REVIEW OF SYSTEMS: CARDIOPULMONARY: No chest pain or shortness of breath. Gastrointestinal: Epigastric pain. Nausea and vomiting, dry heaves. No hematemesis, coffee-ground emesis. No rectal bleeding, or melena. GENITOURINARY: No dysuria or hematuria. MUSCULOSKELETAL: Reports normal range of motion., Joint pain. SKIN: No rashes. No jaundice. ENDOCRINE: No chills, fevers. No excessive weight gain or loss. No polydipsia or polyuria. PSYCHIATRIC: Unremarkable. NEUROLOGY: No change in mental status. Denies dizziness, headache. ENT: Vision unremarkable. CONSTITUTIONAL: No recent weight loss. No fever, chills, night sweats. Past Medical History Past Medical History: No Reported History Additional Past Medical History / Comment(s): miscarriage, syncope..Pt had syncopal episode when and she had seen filter machine operator for braycardia..unsure of outcome..pt states "I'm not annabella good with following up wi th Dr's" History of Any Multi-Drug Resistant Organisms: None Reported Past Surgical History: Cholecystectomy Additional Past Surgical History / Comment(s): labia plas Past Anesthesia/Blood Transfusion Reactions: No Reported Reaction Past Psychological History: Anxiety Smoking Status: Never smoker Past Alcohol Use History: None Reported Past Drug Use History: Marijuana - Past Family History Mother Family Medical History: Hypertension Additional Family Medical History / Comment(s): Lupus Father History Unknown: Yes Family Medical History: Hypertension Medications and Allergies Home Medications Medication Instructions Recorded Confirmed Type No Known Home Medications 10/29/20 10/29/20 History Allergies Allergy/AdvReac Type Severity Reaction Status Date / Time No Known Allergies Allergy Verified 10/29/20 10:42 Physical Exam Vitals: Vital Signs Temp Pulse Pulse Resp BP BP BP 10/30/20 05:00 97.4 F L 50 L 18 96/60 10/29/20 20:45 98/59 10/29/20 20:15 58 L 18 10/29/20 19:50 98.8 F 58 L 18 82/49 88/54 10/29/20 18:51 43 L 18 10/29/20 17:54 98.1 F 43 L 18 116/76 10/29/20 15:35 97.6 F 42 L 18 114/67 10/29/20 14:00 49 L 10/29/20 11:54 97.9 F 49 L 20 130/76 10/29/20 10:36 53 L 19 120/73 Pulse Ox 10/30/20 05:00 99 10/29/20 20:45 10/29/20 20:15 10/29/20 19:50 98 10/29/20 18:51 10/29/20 17:54 10/29/20 15:35 100 10/29/20 14:00 10/29/20 11:54 100 10/29/20 10:36 99 Intake and Output 10/29/20 10/30/20 10/30/20 22:59 06:59 14:59 Intake Total 0 900 Output Total 304 Balance -304 900 Intake: Intake, IV Titration 900 Amount Sodium Chloride 0.9% 1, 900 000 ml @ 75 mls/hr IV . [id number] [facility] Rx#:[id number] Oral 0 0 Output: Emesis 304 Other: Voiding Method Toilet # Voids 2 2 Results CBC & Chem 7: 10/30/20 04:58 10/30/20 04:58 Labs: Abnormal Lab Results - Last 24 Hours (Table) 10/29/20 10/29/20 10/29/20 Range/Units 09:09 15:07 16:52 Neutrophils # (1.3-7.7) k/uL Chloride 111 H (98-107) mmol/L Carbon Dioxide 19 L (22-30) mmol/L Glucose 130 H (74-99) mg/dL Urine pH 8.5 H (5.0-8.0) Urine Ketones Trace H (Negative) U Marijuana (THC) Screen Detected H (NotDetected) 10/30/20 Range/Units 04:58 Neutrophils # 8.4 H (1.3-7.7) k/uL Chloride (98-107) mmol/L Carbon Dioxide (22-30) mmol/L Glucose (74-99) mg/dL Urine pH (5.0-8.0) Urine Ketones (Negative) U Marijuana (THC) Screen (NotDetected) CT scan - abdomen: report reviewed (No suspicious radiographic abnormality to account for abdominal pain) US - abdomen: report reviewed (Normal postcholecystectomy right upper quadrant ultrasound) Assessment and Plan (1) Pancreatitis Narrative/Plan: 30-year-old female who presented to the hospital yesterday morning with complaints of nausea and vomiting for the last 2-3 weeks duration off-and-on. Patient having increased frequency of the nausea and vomiting with dry heaves. Denies any hematemesis or coffee-ground emesis. She has a past medical history of cholecystectomy in 2013. During her evaluation in the emergency department she was noted to have an elevated lipase consistent with pancreatitis. Patient has no previous history of pancreatitis, denies any new medications, any alcohol abuse, or family history of pancreatitis. Will repeat lipase normalized, LFTs are unremarkable. Patient does have a history of anxiety and recently stopped taking her medications. She also does have a history of marijuana use with a positive UDS for marijuana. Abdominal ultrasound reviewed showing normal postcholecystectomy right upper quadrant, CT of abdomen and pelvis with no susp icious radiographic abnormality to account for abdominal pain. Unclear etiology of pancreatitis. Lipase has normalized, no elevation in LFTs. Will obtain triglyceride, JAQUI, and IgG4. Current Visit: Yes Status: Acute Code(s): K85.90 - ACUTE PANCREATITIS WITHOUT NECROSIS OR INFECTION, UNSP SNOMED Code(s): 72378316 (2) Abdominal pain Current Visit: Yes Status: Acute Code(s): R10.9 - UNSPECIFIED ABDOMINAL PAIN SNOMED Code(s): 39531186 (3) Vomiting Narrative/Plan: Patient may have cyclic vomiting related to marijuana use Current Visit: Yes Status: Acute Code(s): R11.10 - VOMITING, UNSPECIFIED SNOMED Code(s): 548167755 Plan: 1. Continue symptomatic and supportive care 2. Clear liquid diet as tolerated 3. Continue Anti-emetics as needed 4. Repeat CBC, CMP 5. Refrain from marijuana use 6. JAQUI, IgG 4, triglycerides ordered 7. Aggressive IV hydration Thank you for this consultation, we will continue to follow Dr. Dahl I agree with the dictator's note, documented as a scribe by Jodie Enriquez.
--- NOTE | 2020-10-30 18:00 | ECHOF ---
Referral Reason:lorraine cardia MEASUREMENTS -------- HEIGHT: 162.6 cm WEIGHT: 63.5 kg BP: 96/60 RVIDd: 3.1 cm (< 3.3) IVSd: 1.0 cm (0.6 - 1.1) LVIDd: 4.5 cm (3.9 - 5.3) LVPWd: 1.0 cm (0.6 - 1.1) IVSs: 1.4 cm LVIDs: 2.7 cm LVPWs: 1.2 cm LAESV Index (A-L): 35.60 ml/m Ao Diam: 2.9 cm (2.0 - 3.7) AV Cusp: 2.3 cm (1.5 - 2.6) LA Diam: 3.5 cm (2.7 - 3.8) MV EXCURSION: 19.910 mm (> 18.000) MV EF SLOPE: 94 mm/s (70 - 150) EPSS: 0.1 cm MV E Christian: 0.84 m/s MV DecT: 185 ms MV A Christian: 0.49 m/s MV E/A Ratio: 1.71 RAP: 20.00 mmHg RVSP: 43.38 mmHg FINDINGS -------- Resting bradycardia (HR<60bpm). This was a technically adequate study. The left ventricular size is normal. Left ventricular wall thickness is normal. Overall left vent ricular systolic function is normal with, an EF between 55 - 60 %. The diastolic filling pattern is normal for the age of the patient 7.59. The right ventricle is normal in size. LA is moderately dilated 34-39 ml/m2 The right atrial size is normal. Interatrial and interventricular septum intact. The aortic valve is trileaflet and appears structurally normal. There is no evidence of aortic regu rgitation. There is no evidence of aortic stenosis. Ekrp-bv-yuxroidx mitral regurgitation is present. Yjro-ua-hxbxztwd tricuspid regurgitation present. There is mild to moderate pulmonary hypertension. The right ventricular systolic pressure, as measured by Doppler, is 43.38mmHg. There is no pulmonic regurgitation present. The aortic root size is normal. The inferior vena cava is dilated with poor inspiratory collapse which is consistent with estimated r ight atrial pressure of 20 mmHg. There is no pericardial effusion. CONCLUSIONS -------- 1. The left ventricular size is normal. 2. Left ventricular wall thickness is normal. 3. Overall left ventricular systolic function is normal with, an EF between 55 - 60 %. 4. LA is moderately dilated 34-39 ml/m2 5. Xpqd-nu-fvwqldrj mitral regurgitation is present. 6. Gzky-yq-gitkwmgf tricuspid regurgitation present. 7. There is mild to moderate pulmonary hypertension. 8. The right ventricular systolic pressure, as measured by Doppler, is 43.38mmHg. 9. The inferior vena cava is dilated with poor inspiratory collapse which is consistent with estimate d right atrial pressure of 20 mmHg. MANAGER MED SURG: Flor De Leon RDCS
[2020-10-30] MEDS: TRIMETHOBENZAMIDE 100 MG/ML 2 ML VIAL IM PRN (20:33)
--- NOTE | 2020-10-30 21:48 | PN ---
PROGRESS NOTE DATE OF SERVICE: 10/30/2020 This 30-year-old woman who was admitted with persistent nausea and vomiting, being closely monitored at this time. The patient had abdomen and pelvis CAT scan. The patient was unable to hold down the p.o. contrast which was done without p.o. contrast. Otherwise, showed no suspicious radiographic abnormality at this time. No fever, no cough. PHYSICAL EXAMINATION: Alert and oriented. Pulse 50, blood pressure 96/60, respiration 18, temperature 97.4, pulse ox 98% on room air. HEENT: Conjunctivae normal. Oral mucosa moist. NECK: No jugular venous distention. No lymph node enlargement. CARDIOVASCULAR: S1, S2, muffled. No S3, no S4, RESPIRATORY: Diminished breath sounds at the bases. No rhonchi, no crackles. ABDOMEN: Soft, nontender. LEGS: No edema, no swelling. NERVOUS SYSTEM: No focal deficits. LABS: CBC within normal limits. Otherwise, other labs are noted. The THC is positive. ASSESSMENT: 1. Acute severe pancreatitis and abdominal pain. 2. Acute gastritis. 3. Nausea and vomiting, possible acute gastritis. 4. Dehydration, present on admission. 5. Sinus arrhythmia. 6. Hypocalcemia. 7. Elevated amylase and lipase. 8. History of cholecystectomy. 9. History of syncopal episode and bradycardia. 10.Anxiety. RECOMMENDATIONS: Continue current management and symptomatic treatment. Repeat labs. Continue with IV fluids. If the patient is not feeling better, EGD may be an option. Closely follow with Gastroenterology. Guarded prognosis. Further recommendations to follow. MMODL / IJN: [id number] /
[2020-10-30] MEDS: LORazepam 2 MG/ML INJ IV PRN (23:07)
[2020-10-31] MEDS: SODIUM CHLORIDE 0.9% 1,000 ML IV SCH ×4 (00:32→22:49)
[2020-10-31] MEDS: ONDANSETRON 4 MG/2 ML VIAL IVP PRN ×2 (04:46→19:36)
[2020-10-31] MEDS: LORazepam 2 MG/ML INJ IV PRN (05:51)
[2020-10-31 06:15] LABS: Basophils % (A) 0 %; Eosinophils % (A) 0 %; HCT 37.8 % (34.0-46.0); HGB 13.2 gm/dL (11.4-16.0); Lymphocytes # (A) 1.8 k/uL (1.0-4.8); Lymphocytes % (A) 21 %; MCH 30.5 pg (25.0-35.0); MCHC 34.9 g/dL (31.0-37.0); MCV 87.3 fL (80.0-100.0); Mean Platelet Volume 8.5; Monocytes # (A) 0.5 k/uL (0-1.0); Monocytes % (A) 5 %; Neutrophils # (A) 6.3 k/uL (1.3-7.7); Neutrophils % (A) 73 %; Platelet Count 164 k/uL (150-450); RBC 4.33 m/uL (3.80-5.40); RDW 12.5 % (11.5-15.5); WBC 8.7 k/uL (3.8-10.6)
[2020-10-31] MEDS: PANTOPRAZOLE 40 MG/10 ML VIAL IVP SCH ×2 (07:33→21:13)
[2020-10-31] MEDS: HEPARIN SODIUM,PORCINE/PF 5,000 UNIT/0.5 ML SYRINGE SQ SCH ×2 (07:33→21:13)
[2020-10-31] MEDS: MORPHINE SULFATE 4 MG/ML SYRINGE IV PRN (07:36)
--- NOTE | 2020-10-31 08:57 | P.PN ---
Subjective Progress Note Date: 10/31/20 Principal diagnosis: Nausea and vomiting Patient seen and examined lying in bed. States she was dry heaving all day yesterday through the night. States she feels a little bit better this morning. States she does have epigastric pain she thinks may be related to the vomiting and retching. Denies any hematemesis or coffee-ground emesis. States she does smoke marijuana 3 times a day, has been smoking since she was 15 years old. Also states that she does have a history of vomiting, states that at least every 2 week she vomits in the morning but then goes about her day without any difficulties. Denies any difficulty with swallowing. Is tolerating small sips of water. Objective - Vital Signs Vital signs: Vital Signs Temp 98.8 F 10/31/20 04:42 Pulse 87 10/31/20 04:42 Resp 18 10/31/20 04:42 BP 120/80 10/31/20 04:42 Pulse Ox 99 10/31/20 04:42 Intake & Output 10/30/20 10/31/20 10/31/20 18:59 06:59 18:59 Intake Total 1500 1900 Output Total 200 200 Balance 1300 1700 Intake: Intake, IV Titration 1500 1800 Amount Sodium Chloride 0.9% 1, 1500 1800 000 ml @ 150 mls/hr IV . Q6H40M [facility] Rx#:[id number] Oral 100 Output: Emesis 200 200 Other: Voiding Method Toilet # Voids 5 5 - Exam General appearance: The patient is alert, oriented, appears in no acute distress. HET: Head is normocephalic and atraumatic. Conjunctiva pink. Sclera anicteric. Neck: Supple without lymphadenopathy. Abdomen: Soft, epigastric tenderness, nondistended with bowel sounds. No guarding or rigidity. Extremities: Normal skin color and turgor. No pedal edema Skin: No rashes, no jaundice Neurological: No focal deficits. Alert and oriented 3. - Labs CBC & Chem 7: 10/31/20 05:32 10/30/20 17:42 Labs: Abnormal Lab Results - Last 24 Hours (Table) 10/30/20 Range/Units 04:58 Chloride 110 H (96-109) mmol/L Calcium 8.6 L (8.7-10.3) mg/dL Assessment and Plan (1) Pancreatitis Narrative/Plan: 30-year-old female who presented to the hospital yesterday morning with complaints of nausea and vomiting for the last 2-3 weeks duration off-and-on. Patient having increased frequency of the nausea and vomiting with dry heaves. Denies any hematemesis or coffee-ground emesis. She has a past medical history of cholecystectomy in 2013. During her evaluation in the emergency department she was noted to have an elevated lipase consistent with pancreatitis. Patient has no previous history of pancreatitis, denies any new medications, any alcohol abuse, or family history of pancreatitis. Will repeat lipase normalized, LFTs are unremarkable. Patient does have a history of anxiety and recently stopped taking her medications. She also does have a history of marijuana use with a positive UDS for marijuana. Abdominal ultrasound reviewed showing normal postcholecystectomy right upper quadrant, CT of abdomen and pelvis with no suspicious radiographic abnormality to account for abdominal pain. Unclear e tiology of pancreatitis. Lipase has normalized, no elevation in LFTs. Will obtain triglyceride, JAQUI, and IgG4. Current Visit: Yes Status: Acute Code(s): K85.90 - ACUTE PANCREATITIS WITHOUT NECROSIS OR INFECTION, UNSP SNOMED Code(s): 77738412 (2) Abdominal pain Current Visit: Yes Status: Acute Code(s): R10.9 - UNSPECIFIED ABDOMINAL PAIN SNOMED Code(s): 27924148 (3) Vomiting Narrative/Plan: Patient may have cyclic vomiting related to marijuana use, patient smokes 3 times a day. Current Visit: Yes Status: Acute Code(s): R11.10 - VOMITING, UNSPECIFIED SNOMED Code(s): 092550461 Plan: 1. Continue symptomatic and supportive care 2. Clear liquid diet as tolerated, nothing by mouth after midnight 3. Continue Anti-emetics as needed 4. Patient will be scheduled for EGD tomorrow, procedure discussed with patient in detail including risks and benefits. Patient agreeable to proceed. 5. Refrain from marijuana use 6. JAQUI, IgG 4, triglycerides ordered 7. Aggressive IV hydration Thank you for this consultation, we will continue to follow Dr. Dahl I agree with the dictator's note, documented as a scribe by Jodie Enriquez.
[2020-10-31 11:39] LABS: African American GFR (CKD) 142.8 (60.0-200.0); Albumin/Globulin Ratio 1.82 (1.60-3.17); Anion Gap 9.7 mmol/L (4.00-12.00); Calcium 8.7 mg/dL (8.7-10.3); Carbon Dioxide 23.3 mmol/L (21.6-31.8); Globulin 2.2 g/dL (1.6-3.3); Non-African American GFR(CKD) 123.2 (60.0-200.0); Potassium 3.7 mmol/L (3.5-5.5); Total Bilirubin 0.8 mg/dL (0.2-1.2); Total Protein 6.2 g/dL (6.2-8.2)
[2020-10-31 13:17] VITALS: RESP 16
--- NOTE | 2020-10-31 13:30 | P.PN ---
Subjective Progress Note Date: 10/31/20 CHIEF COMPLAINT: Nausea and vomiting HISTORY OF PRESENT ILLNESS: Surgical service is following regards to patient's intractable nausea and vomiting with pancreatitis. Patient reports that she still having nausea and vomiting. Patient reports having multiple episodes of vomiting through the night. Reports that she is scared to eat inferior that she will vomit. She currently on a clear liquid diet. She did reportedly normal bowel movement. She had a computed tomography scan of the abdomen and pelvis with IV contrast which was negative. Afebrile. WBC is 8.17:13.2 platelets 164 lipase 23 PHYSICAL EXAM: VITAL SIGNS: Reviewed GENERAL: Well-developed in no acute distress. HEENT: No sclera icterus. Extraocular movements grossly intact. Moist buccal mucosa. Head is atraumatic, normocephalic. Hears conversational speech. No nasal drainage. NECK: Supple without lymphadenopathy. CHEST: Non-labored respirations and equal bilateral excursions. CARDIOVASCULAR: Palpable 2+ radial pulses. ABDOMEN: Soft. Nondistended. MUSCULOSKELETAL: No clubbing or cyanosis. NEUROLOGIC: No focal or lateralizing signs. Cranial nerves II through XII grossly intact. PSYCH: Appropriate affect. Alert and oriented to person, place and time. SKIN: Well perfused. Good skin turgor. ASSESSMENT: 1. Acute pancreatitis improved 2. Intractable nausea and vomiting PLAN: -No surgical intervention planned -Patient is cleared for discharge from surgical standpoint once cleared by medicine service -Continue antiemetics as needed Physician Accountant Certified Public note has been reviewed by physician. Signing provider agrees with the documented findings, assessment, and plan of care. Objective - Vital Signs Vital signs: Vital Signs Temp 98.9 F 10/31/20 13:12 Pulse 51 L 10/31/20 13:12 Resp 16 10/31/20 13:12 BP 117/76 10/31/20 13:12 Pulse Ox 99 10/31/20 13:12 Intake & Output 10/30/20 10/31/20 10/31/20 18:59 06:59 18:59 Intake Total 1500 1900 Output Total 200 200 Balance 1300 1700 Intake: Intake, IV Titration 1500 1800 Amount Sodium Chloride 0.9% 1, 1500 1800 000 ml @ 150 mls/hr IV . Q6H40M [facility] Rx#:[id number] Oral 100 Output: Emesis 200 200 Other: Voiding Method Toilet # Voids 5 5 - Labs CBC & Chem 7: 10/31/20 05:32 10/30/20 17:42 Labs: Abnormal Lab Results - Last 24 Hours (Table) 10/30/20 Range/Units 17:42 Glucose 113 H (70-110) mg/dL
[2020-10-31 13:59] LABS: IgG Subclass 3 25.8 mg/dL (11.0-85.0); IgG Subclass 4 50.4 mg/dL (3.0-175.0)
--- NOTE | 2020-10-31 16:12 | P.PN ---
Subjective Progress Note Date: 10/31/20 This is a 30-year-old female who was recently admitted with persistent nausea and vomiting and is being closely monitored. GI and surgery following an no plans for surgical interventions at this time. She continues to have nausea with multiple episodes of vomiting throughout last night into today and plans are for EGD with GI in the morning. Patient is tolerating small sips of clear liquids mainly water but continues to have dry heaving and nausea noted. Patient also having some epigastric this discomfort most likely acid reflux from continued vomiting and patient is continued on IV Protonix. Cardiology evaluated the patient and will follow as needed. Telemetry was discontinued. Patient continues on IV hydration will continue and will await EGD report. Review of systems: Constitutional: No reports of fatigue, fever, or chills Cardiovascular: No reports of chest pain or palpitations, reports acid reflux like indigestion and burning in the sternum area Respiratory: No reports of shortness of breath or cough GI: Reports nausea and vomiting, mostly dry heaves : No reports of dysuria or retention Neurovascular: No reports of weakness or numbness All medications have been reviewed Objective - Vital Signs Vital signs: Vital Signs Temp 98.9 F 10/31/20 13:12 Pulse 51 L 10/31/20 13:12 Resp 16 10/31/20 13:12 BP 117/76 10/31/20 13:12 Pulse Ox 99 10/31/20 13:12 Intake & Output 10/30/20 10/31/20 10/31/20 18:59 06:59 18:59 Intake Total 1500 1900 Output Total 200 200 Balance 1300 1700 Intake: Intake, IV Titration 1500 1800 Amount Sodium Chloride 0.9% 1, 1500 1800 000 ml @ 150 mls/hr IV . Q6H40M [facility] Rx#:[id number] Oral 100 Output: Emesis 200 200 Other: Voiding Method Toilet # Voids 5 5 2 - Exam Gen: This is a 30-year-old female sitting up in bed awake, alert and oriented 3, well-developed, well-nourished. HEENT: Head is atraumatic, normocephalic. Pupils equal, round. Sclerae is anicteric. NECK: Supple. No JVD. No lymphadenopathy. No thyromegaly. LUNGS: Clear to auscultation. No wheezes or rhonchi. No intercostal retractions. HEART: S1, S2 are muffled ABDOMEN: Soft. Bowel sounds are present. No masses. No tenderness. EXTREMITIES: No pedal edema. No calf tenderness. NEUROLOGICAL: Patient is awake, alert and oriented x3. Cranial nerves 2 through 12 are grossly intact. - Labs CBC & Chem 7: 10/31/20 05:32 10/30/20 17:42 Labs: Abnormal Lab Results - Last 24 Hours (Table) 10/30/20 Range/Units 17:42 Glucose 113 H (70-110) mg/dL Assessment and Plan Assessment: abdominal pain, with nausea and vomiting, possible acute gastritis Possible acute pancreatitis although suspicion is low Daily use of marijuana Vomiting, possible cyclic vomiting syndrome, secondary to daily marijuana use Dehydration, present on admission Sinus arrhythmia, evaluated by cardiology and cleared from telemetry Hypocalcemia Elevated amylase/lipase History of cholecystectomy Anxiety GI prophylaxis Full code Plan: continue current medications and anti-emetics as needed. Patient is maintained on IV fluids and will continue. Patient is also on clear liquids and tolerating small sips at times but continues to have nausea with dry heaves and GI foll owing. Plans are for EGD in the morning and will await report. Discussed with the patient about discontinuing marijuana use. Patient does not have a primary care provider currently and will provide resources to establish with a primary care provider in the area. Possible discharge in 24 hours.
[2020-10-31] MEDS: MAGNESIUM SULFATE-D5W PMX 1 GM in DEXTROSE/WATER 1 100ML.BAG IVPB SCH ×2 (19:43→21:14)
[2020-11-01] MEDS: SODIUM CHLORIDE 0.9% 1,000 ML IV SCH ×4 (04:58→23:05)
[2020-11-01] MEDS: LACTATED RINGERS 1,000 ML IV SCH (04:58)
[2020-11-01] MEDS: ONDANSETRON 4 MG/2 ML VIAL IVP PRN (05:11)
[2020-11-01] MEDS: LORazepam 2 MG/ML INJ IV PRN ×2 (06:19→21:16)
[2020-11-01] MEDS ORDERED: LIDOCAINE 1% (10MG/ML) FOR IV START INTRADERMA PRN (07:00)
[2020-11-01 07:04] LABS: Vit B1(Thiamine) 73 ug/L (38-122)
[2020-11-01] MEDS: PANTOPRAZOLE 40 MG/10 ML VIAL IVP SCH ×2 (07:14→21:16)
[2020-11-01] MEDS: HEPARIN SODIUM,PORCINE/PF 5,000 UNIT/0.5 ML SYRINGE SQ SCH ×2 (07:15→21:16)
[2020-11-01 08:15] LABS: Zinc, Serum 55 ug/dL (60-130)
[2020-11-01] MEDS: TRIMETHOBENZAMIDE 100 MG/ML 2 ML VIAL IM PRN (09:48)
[2020-11-01 10:36] LABS: African American GFR (CKD) >90 (>60 ml/min/1.73 sqM); Anion Gap 12 mmol/L; Blood Urea Nitrogen 7 mg/dL (7-17); Calcium 8.3 mg/dL (8.4-10.2); Carbon Dioxide 18 mmol/L (22-30); Chloride 109 mmol/L (98-107); Glucose 80 mg/dL (74-99); Non-African American GFR(CKD) >90 (>60 ml/min/1.73 sqM); Potassium 3.6 mmol/L (3.5-5.1); Sodium 139 mmol/L (137-145)
--- NOTE | 2020-11-01 12:47 | P.PN ---
Subjective Progress Note Date: 11/01/20 CHIEF COMPLAINT: Nausea and vomiting HISTORY OF PRESENT ILLNESS: Surgical service is following regards to patient's intractable nausea and vomiting with pancreatitis. Patient reports that she still having nausea and vomiting. She reports last night she had a few hours that she was able to fall sleep without any vomiting. But when she woke up the vomiting resumed. She is scheduled for an EGD today. Afebrile. Patient did receive a dose of IV magnesium yesterday for magnesium level 1.7 sodium 129 potassium 3.6 CO2 18 thiamine level 73 PHYSICAL EXAM: VITAL SIGNS: Reviewed GENERAL: Well-developed in no acute distress. HEENT: No sclera icterus. Extraocular movements grossly intact. Moist buccal mucosa. Head is atraumatic, normocephalic. Hears conversational speech. No nasal drainage. NECK: Supple without lymphadenopathy. CHEST: Non-labored respirations and equal bilateral excursions. CARDIOVASCULAR: Palpable 2+ radial pulses. ABDOMEN: Soft. Nondistended. MUSCULOSKELETAL: No clubbing or cyanosis. NEUROLOGIC: No focal or lateralizing signs. Cranial nerves II through XII gr ossly intact. PSYCH: Appropriate affect. Alert and oriented to person, place and time. SKIN: Well perfused. Good skin turgor. ASSESSMENT: 1. Acute pancreatitis improved 2. Intractable nausea and vomiting 3. Daily marijuana use and possible cyclic vomiting syndrome 4. History of cholecystectomy PLAN: -No surgical intervention planned -Patient scheduled for EGD with GI service -Add Compazine -Repeat magnesium level in a.m. -Continue antiemetics as needed Physician Laborer Salvage note has been reviewed by physician. Signing provider agrees with the documented findings, assessment, and plan of care. Objective - Vital Signs Vital signs: Vital Signs Temp 98.8 F 11/01/20 11:37 Pulse 57 L 11/01/20 11:37 Resp 16 11/01/20 11:37 BP 136/80 11/01/20 11:37 Pulse Ox 99 11/01/20 11:37 Intake & Output 10/31/20 11/01/20 11/01/20 18:59 06:59 18:59 Intake Total 1800 2340 Balance 1800 2340 Intake: Intake, IV Titration 1800 2000 Amount Magnesium Sulfate-D5w Pmx 200 1 gm In Dextrose/Water 1 100ml.bag @ 100 mls/hr IVPB Q1H [facility] Rx#: [id number] Sodium Chloride 0.9% 1, 1800 1800 000 ml @ 150 mls/hr IV . Q6H40M [facility] Rx#:[id number] Oral 340 Other: # Voids 2 2 - Labs CBC & Chem 7: 10/31/20 05:32 11/01/20 09:19 Labs: Abnormal Lab Results - Last 24 Hours (Table) 10/30/20 11/01/20 Range/Units 15:12 09:19 Chloride 109 H (98-107) mmol/L Carbon Dioxide 18 L (22-30) mmol/L Calcium 8.3 L (8.4-10.2) mg/dL Zinc 55 L (60-130) ug/dL
--- NOTE | 2020-11-01 13:41 | P.PN ---
Subjective Progress Note Date: 11/01/20 This is a 30-year-old female who was recently admitted with persistent nausea and vomiting and is being closely monitored. GI and surgery following an no plans for surgical interventions at this time. She continues to have nausea with multiple episodes of vomiting throughout last night into today and plans are for EGD with GI in the morning. Patient is tolerating small sips of clear liquids mainly water but continues to have dry heaving and nausea noted. Patient also having some epigastric this discomfort most likely acid reflux from continued vomiting and patient is continued on IV Protonix. Cardiology evaluated the patient and will follow as needed. Telemetry was discontinued. Patient continues on IV hydration will continue and will await EGD report. 11/01/2020 Patient is seen in follow-up this morning continues to have multiple episodes of vomiting with dry heaving and nausea and states whenever she moves or changes positions she gets extremely nauseated and lightheaded with dizziness when sitting up. Magnesium 1.7 and will repeat labs, BMP within normal limits. Patient is maintained on IV hydration along with anti-emetics and Tigan and will continue. Patient denies any chest pain or palpitations. Patient is afebrile. Review of systems: Constitutional: No reports of fatigue, fever, or chills Cardiovascular: No reports of chest pain or palpitations, reports acid reflux like indigestion and burning in the sternum area after vomiting Respiratory: No reports of shortness of breath or cough GI: Reports continued nausea and vomiting, mostly dry heaves continued throug hout the night into today : No reports of dysuria or retention Neurovascular: Reports generalized weakness and feelings of dizziness when sitting up All medications have been reviewed Physical exam: Gen: This is a 30-year-old female lying in bed awake, alert and oriented 3, well-developed, well-nourished. HEENT: Head is atraumatic, normocephalic. Pupils equal, round. Sclerae is anicteric. NECK: Supple. No JVD. No lymphadenopathy. No thyromegaly. LUNGS: Clear to auscultation. No wheezes or rhonchi. No intercostal retractions. HEART: S1, S2 are muffled ABDOMEN: Soft. Bowel sounds are present. No masses. tenderness noted on exam. EXTREMITIES: No pedal edema. No calf tenderness. NEUROLOGICAL: Patient is awake, alert and oriented x3. Cranial nerves 2 through 12 are grossly intact. Assessment and plan: abdominal pain, with nausea and vomiting, possible acute gastritis Possible acute pancreatitis although suspicion is low Daily use of marijuana Vomiting, possible cyclic vomiting syndrome, secondary to daily marijuana use Dehydration, present on admission Sinus arrhythmia, evaluated by cardiology and cleared from telemetry Hypocalcemia Hypomagnesemia Elevated amylase/lipase History of cholecystectomy Anxiety GI prophylaxis Full code Plan: continue current medications and anti-emetics as needed. Patient is maintained on IV fluids and will continue. Patient has been nothing by mouth as she is scheduled to undergo EGD and has had continued nausea with vomiting throughout the night and through today. Will await EGD report. Patient also experiencing dizziness and lightheadedness with position changes. Discussed with the patient about discontinuing marijuana use. Patient does not have a primary care provider currently and will provide resources to establish with a primary care provider in the area. Possible discharge in 24 hours. Objective - Vital Signs Vital signs: Vital Signs Temp 98.8 F 11/01/20 11:37 Pulse 57 L 11/01/20 11:37 Resp 16 11/01/20 11:37 BP 136/80 11/01/20 11:37 Pulse Ox 99 11/01/20 11:37 Intake & Output 10/31/20 11/01/20 11/01/20 18:59 06:59 18:59 Intake Total 1800 2340 Balance 1800 2340 Intake: Intake, IV Titration 1800 2000 Amount Magnesium Sulfate-D5w Pmx 200 1 gm In Dextrose/Water 1 100ml.bag @ 100 mls/hr IVPB Q1H [facility] Rx#: [id number] Sodium Chloride 0.9% 1, 1800 1800 000 ml @ 150 mls/hr IV . Q6H40M [facility] Rx#:[id number] Oral 340 Other: # Voids 2 2 - Labs CBC & Chem 7: 10/31/20 05:32 11/01/20 09:19 Labs: Abnormal Lab Results - Last 24 Hours (Table) 10/30/20 11/01/20 Range/Units 15:12 09:19 Chloride 109 H (98-107) mmol/L Carbon Dioxide 18 L (22-30) mmol/L Calcium 8.3 L (8.4-10.2) mg/dL Zinc 55 L (60-130) ug/dL
[2020-11-01] MEDS ORDERED: ONDANSETRON 4 MG/2 ML VIAL ONE (15:27)
[2020-11-01] MEDS ORDERED: PROPOFOL 10 MG/ML 20 ML VIAL IV ONE (15:27)
[2020-11-01] MEDS ORDERED: LIDOCAINE 1% INJ 10MG/ML (20 ML MDV) ONE (15:27)
[2020-11-01] MEDS ORDERED: IV FLUID CONTINUATION 1,000 ML IV ONE ×2 (15:31)
[2020-11-01] MEDS ORDERED: TRIMETHOBENZAMIDE 100 MG/ML 2 ML VIAL IM PRN (15:52)
--- NOTE | 2020-11-01 16:00 | P.PCN ---
Date of Procedure: 11/01/20 Description of Procedure: BRIEF HISTORY: 30-year-old female who presented to the hospital yesterday morning with complaints of nausea and vomiting for the last 2-3 weeks duration off-and-on. Patient having increased frequency of the nausea and vomiting with dry heaves. Denies any hematemesis or coffee-ground emesis. She has a past medical history of cholecystectomy in 2013. During her evaluation in the emergency department she was noted to have an elevated lipase consistent with pancreatitis. Patient has no previous history of pancreatitis, denies any new medications, any alcohol abuse, or family history of pancreatitis. Will repeat lipase normalized, LFTs are unremarkable. Patient does have a history of anxiety and recently stopped taking her medications. She also does have a history of marijuana use with a positive UDS for marijuana. Abdominal ultrasound reviewed showing normal postcholecystectomy right upper quadrant, CT of abdomen and pelvis with no suspicious radiographic abnormality to account for abdominal pain. Unclear etiology of pancreatitis. Lipase has normalized, no elevation in LFTs. PROCEDURE PERFORMED: Esophagogastroduodenoscopy with biopsy. PREOPERATIVE DIAGNOSIS: Intractable nausea and vomiting. ESTIMATED BLOOD LOSS: Minimal. IV sedation per anesthesia. PROCEDURE: After informed consent was obtained, the patient was brought into the endoscopy unit. IV sedation was administered by Anesthesia under continuous monitoring. I nitially the Olympus GIF-190 video endoscope was inserted into the mouth. Esophagus intubated without any difficulty. It was gradually advanced into the stomach and duodenum and carefully examined. The bulb and the second part of the duodenum appeared normal, with biopsies taken. The scope at this time was withdrawn to the stomach, adequately insufflated with air, and upon careful examination, mucosa of the antrum, body, cardia and the fundus appeared normal, except for some mild scattered erythema in the antrum and body suggestive of mild gastritis with biopsies taken. The scope was then withdrawn into the esophagus. The GE junction was located at 39 cm from the incisors. The esophagus appeared normal, with lower esophageal biopsies taken. There were no erosions or ulcerations seen and the patient tolerated the procedure well. IMPRESSION: 1. Mild gastritis. 2. Biopsies of the duodenum, antrum and body and lower esophagus. RECOMMENDATIONS: The findings of this examination were discussed with the patient and the medical team. We'll increase Zofran to [id number]. Continue Protonix twice daily. Continue Tigan as needed for breakthrough nausea. Famotidine added at night. Can titrate down on medications when symptomatically improved. Marijuana abstinence discussed. Okay for diet as tolerated.
[2020-11-01] MEDS: ONDANSETRON 4 MG/2 ML VIAL IVP SCH ×2 (17:15→23:05)
[2020-11-01] MEDS: SCOPOLAMINE 1.5MG/72HR PATCH TRANSDERM SCH (17:16)
[2020-11-01] MEDS: PROCHLORPERAZINE INJ 10 MG/2 ML VIAL IVP PRN (19:07)
[2020-11-01] MEDS ORDERED: FAMOTIDINE 20 MG TAB PO SCH (21:00)
[2020-11-02] MEDS: PROCHLORPERAZINE INJ 10 MG/2 ML VIAL IVP PRN ×2 (02:58→09:11)
[2020-11-02] MEDS: ONDANSETRON 4 MG/2 ML VIAL IVP SCH (05:15)
[2020-11-02] MEDS: SODIUM CHLORIDE 0.9% 1,000 ML IV SCH (05:16)
[2020-11-02] MEDS: LACTATED RINGERS 1,000 ML IV SCH (08:15)
[2020-11-02] MEDS: HEPARIN SODIUM,PORCINE/PF 5,000 UNIT/0.5 ML SYRINGE SQ SCH (08:18)
[2020-11-02] MEDS: PANTOPRAZOLE 40 MG/10 ML VIAL IVP SCH (08:18)
--- NOTE | 2020-11-02 11:22 | P.PN ---
Subjective Progress Note Date: 11/02/20 CHIEF COMPLAINT: Nausea and vomiting HISTORY OF PRESENT ILLNESS: Surgical service is following regards to patient's intractable nausea and vomiting with pancreatitis. Patient is status post EGD which had shown mild gastritis. Biopsies were also taken. EGD completed by Dr. Dhal. Patient reports that she was able to sleep soundly after EGD and always to the night. She had no episodes of nausea or vomiting. This morning she is slightly nauseous. She is being given antiemetics. She was started on a low-fat diet. She is asking about possibly being discharged today. Patient also reporting that she is going to refrain from using marijuana due to a possibly contributing to her nausea and vomiting. Afebrile. Mg 2.2 PHYSICAL EXAM: VITAL SIGNS: Reviewed GENERAL: Well-developed in no acute distress. HEENT: No sclera icterus. Extraocular movements grossly intact. Moist buccal mucosa. Head is atraumatic, normocephalic. Hears conversational speech. No nasal drainage. NECK: Supple without lymphadenopathy. CHEST: Non-labored respirations and equal bilateral excursions. CARDIOVASCULAR: Palpable 2+ radial pulses. ABDOMEN: Soft. Nondistended. MUSCULOSKELETAL: No clubbing or cyanosis. NEUROLOGIC: No focal or lateralizing signs. Cranial nerves II through XII grossly intact. PSYCH: Appropriate affect. Alert and oriented to person, place and time. SKIN: Well perfused. Good skin turgor. ASSESSMENT: 1. Acute pancreatitis resolved 2. Intractable nausea and vomiting status post EGD revealing mild gastritis 3. Daily marijuana use and possible cyclic vomiting syndrome 4. History of cholecystectomy PLAN: -No surgical intervention planned -Continue antiemetics as needed -Patient can be discharged from surgical standpoint when cleared medically Physician Valve Technician note has been reviewed by physician. Signing provider agrees with the documented findings, assessment, and plan of care. Objective - Vital Signs Vital signs: Vital Signs Temp 98.5 F 11/02/20 05:00 Pulse 54 L 11/02/20 05:00 Resp 16 11/02/20 05:00 BP 117/76 11/02/20 05:00 Pulse Ox 95 11/02/20 05:00 Intake & Output 11/01/20 11/02/20 11/02/20 18:59 06:59 18:59 Intake Total 2220 2380 Balance 2220 2380 Intake: IV 300 Intake, IV Titration 1920 1800 Amount Lactated Ringers 1,000 ml 120 @ 20 mls/hr IV .Q24H [facility] Rx#:[id number] Sodium Chloride 0.9% 1, 1800 1800 000 ml @ 150 mls/hr IV . Q6H40M [facility] Rx#:[id number] Oral 580 Other: Voiding Method Toilet # Voids 2 1 - Labs CBC & Chem 7: 10/31/20 05:32 11/01/20 09:19
[2020-11-02 12:20] VITALS: BP 143/79; PULSE 56; TEMP 99.5
--- NOTE | 2020-11-02 12:41 | CT ---
A- EXAMINATION TYPE: CT brain wo con DATE OF EXAM: 11/02/2020 COMPARISON: None HISTORY: Blurred vision. CT DLP: 1005.[address] of the brain was performed. The ventricles, basal cisterns and sulci overlying the cerebral convexities demonstrate a normal appe arance. There is no evidence for intracranial hemorrhage or sulcal effacement. No mass effects are seen. Osseous calvarium is intact. If symptoms persist consider MRI as clinically warranted. IMPRESSION: 1. No acute intracranial process is seen at this time.
--- NOTE | 2020-11-02 13:29 | P.PN ---
Subjective Progress Note Date: 11/02/20 Principal diagnosis: Nausea and vomiting Is seen and examined sitting up in bed. States the vomiting has improved however she is nauseous still. States nausea gets worse when she is up and moving. Also having complaints of blurred vision and difficulty reading her phone. Yesterday she underwent an EGD that showed mild gastritis. She states Tigan does help the most with her nausea. She is tolerating her diet. Objective - Vital Signs Vital signs: Vital Signs Temp 99.5 F 11/02/20 11:49 Pulse 56 L 11/02/20 11:49 Resp 16 11/02/20 11:49 BP 143/79 11/02/20 11:49 Pulse Ox 100 11/02/20 11:49 Intake & Output 11/01/20 11/02/20 11/02/20 18:59 06:59 18:59 Intake Total 2220 2380 Balance 2220 2380 Intake: IV 300 Intake, IV Titration 1920 1800 Amount Lactated Ringers 1,000 ml 120 @ 20 mls/hr IV .Q24H DORON Rx#:[id number] Sodium Chloride 0.9% 1, 1800 1800 000 ml @ 150 mls/hr IV . Q6H40M DORON Rx#:[id number] Oral 580 Other: Voiding Method Toilet # Voids 2 1 - Exam General appearance: The patient is alert, oriented, appears in no acute distress. HET: Head is normocephalic and atraumatic. Conjunctiva pink. Sclera anicteric. Neck: Supple without lymphadenopathy. Abdomen: Soft, epigastric tenderness, nondistended with bowel sounds. No guarding or rigidity. Extremities: Normal skin color and turgor. No pedal edema Skin: No rashes, no jaundice Neurological: No focal deficits. Alert and oriented 3. - Labs CBC & Chem 7: 10/31/20 05:32 11/01/20 09:19 Assessment and Plan (1) Pancreatitis Narrative/Plan: 30-year-old female who presented to the hospital yesterday morning with complaints of nausea and vomiting for the last 2-3 weeks duration off-and-on. Patient having increased frequency of the nausea and vomiting with dry heaves. Denies any hematemesis or coffee-ground emesis. She has a past medical history of cholecystectomy in 2013. During her evaluation in the emergency department she was noted to have an elevated lipase consistent with pancreatitis. Patient has no previous history of pancreatitis, denies any new medications, any alcohol abuse, or family history of pancreatitis. Will repeat lipase normalized, LFTs are unremarkable. Patient does have a history of anxiety and recently stopped taking her medications. She also does have a history of marijuana use with a positive UDS for marijuana. Abdominal ultrasound reviewed showing normal postcholecystectomy right upper quadrant, CT of abdomen and pelvis with no suspicious radiographic abnormality to account for abdominal pain. Unclear etiology of pancreatitis. Lipase has normalized, no elevation in LFTs. Will obtain triglyceride, JAQUI, and IgG4. Current Visit: Yes Status: Acute Code(s): K85.90 - ACUTE PANCREATITIS WITHOUT NECROSIS OR INFECTION, UNSP SNOMED Code(s): 43415783 (2) Abdominal pain Narrative/Plan: Patient underwent EGD yesterday showing mild gastritis. Current Visit: Yes Status: Acute Code(s): R10.9 - UNSPECIFIED ABDOMINAL PAIN SNOMED Code(s): 22174378 (3) Vomiting Narrative/Plan: Patient may have cyclic vomiting related to marijuana use, patient smokes 3 times a day. Current Visit: Yes Status: Acute Code(s): R11.10 - VOMITING, UNSPECIFIED SNOMED Code(s): 006283699 Plan: 1. Continue symptomatic and supportive care 2. Diet as tolerated 3. Continue Anti-emetics as needed 4. Refrain from marijuana use 5. JAQUI, IgG 4, triglycerides ordered/reviewed . Patient may be discharged home from a gastroenterology standpoint, Protonix, Zofran, and Tigan scripts sent Thank you for this consultation, we will sign off at this time Dr. Dahl I agree with the dictator's note, documented as a scribe by Jodie Enriquez.
--- NOTE | 2020-11-02 17:00 | P.DS ---
Providers Date of admission: 10/31/20 14:27 Attending physician: Kenton Vega MD Consults: 10/29/20 10:25 Consult Physician Routine Consulting Provider: Joseph Dahl Consult Reason/Comments: pancreatitis Do you want consulting provider notified?: Yes 10/29/20 15:47 Consult Physician Routine Consulting Provider: Mike Gray Consult Reason/Comments: sinus arrhythmia? Do you want consulting provider notified?: Yes 10/29/20 16:41 Consult Physician Routine Consulting Provider: Neeru Cantu Consult Reason/Comments: N/V Do you want consulting provider notified?: Yes Primary care physician: Stated None Hospital Course: 30-year-old female who was recently admitted with persistent nausea and vomiting and is being closely monitored. GI and surgery following an no plans for metcalf rgical interventions at this time. She continues to have nausea with multiple episodes of vomiting throughout last night into today and plans are for EGD with GI in the morning. Patient is tolerating small sips of clear liquids mainly water but continues to have dry heaving and nausea noted. Patient also having some epigastric this discomfort most likely acid reflux from continued vomiting and patient is continued on IV Protonix. Cardiology evaluated the patient and will follow as needed. Telemetry was discontinued. Patient continues on IV hydration will continue and will await EGD report. 11/01/2020 Patient is seen in follow-up this morning continues to have multiple episodes of vomiting with dry heaving and nausea and states whenever she moves or changes positions she gets extremely nauseated and lightheaded with dizziness when sitting up. Magnesium 1.7 and will repeat labs, BMP within normal limits. Patient is maintained on IV hydration along with anti-emetics and Tigan and will continue. Patient denies any chest pain or palpitations. Patient is afebrile. 11/02/2020 Patient is a nausea improves patient is able to tolerate a soft diet very well. Patient had underwent upper GI endoscopy which showed mild gastritis for which patient is will be discharged on Protonix. Patient is also being discharged on antinausea medications. Patient was comparing of blurry vision since yesterday this is secondary to scopolamine patch which will be discontinued. I obtain the CT of the head didn't rule out any intracranial hemorrhage although suspicion is extremely low patient doesn't have any such hemorrhage at this time. Physical exam: Gen: This is a 30-year-old female lying in bed awake, alert and oriented 3, well-developed, well-nourished. HEENT: Head is atraumatic, normocephalic. Pupils equal, round. Sclerae is anicteric. NECK: Supple. No JVD. No lymphadenopathy. No thyromegaly. LUNGS: Clear to auscultation. No wheezes or rhonchi. No intercostal retractio ns. HEART: S1, S2 are muffled ABDOMEN: Soft. Bowel sounds are present. No masses. tenderness noted on exam. EXTREMITIES: No pedal edema. No calf tenderness. NEUROLOGICAL: Patient is awake, alert and oriented x3. Cranial nerves 2 through 12 are grossly intact. Assessment and plan: abdominal pain, with nausea and vomiting, possible acute gastritis and improved extensive marijuana cessation counseling was provided On specific elevation of lipase no suspicion for pancreatitis Vomiting, possible cyclic vomiting syndrome, secondary to daily marijuana use Dehydration, present on admission resolved now Sinus arrhythmia, improved secondary to dehydration Blurry vision both in both eyes secondary to scopolamine patch which was discontinued. If the patient continues to have this blurry vision may need evaluation by juke box mechanic was informed to the patient Plan - Discharge Summary Discharge Rx Participant: No New Discharge Prescriptions: New Pantoprazole Sodium [Protonix] 40 mg PO DAILY #30 tablet. Trimethobenzamide [Tigan] 300 mg PO TID PRN 10 Days #30 capsule PRN Reason: Nausea And Vomiting Ondansetron Odt [Zofran Odt] 4 mg PO Q8HR PRN 7 Days #21 tab PRN Reason: Nausea And Vomiting Discharge Medication List Ondansetron Odt [Zofran Odt] 4 mg PO Q8HR PRN 7 Days #21 tab 11/02/20 [Rx] Pantoprazole Sodium [Protonix] 40 mg PO DAILY #30 tablet. 11/02/20 [Rx] Trimethobenzamide [Tigan] 300 mg PO TID PRN 10 Days #30 capsule 11/02/20 [Rx] Follow up Appointment(s)/Referral(s): Finn Jones DO [STAFF PHYSICIAN] - 11/10/20 2:00 pm (patient needs to bring id and insurance card to visit and come in 10 minutes early for paper work) Joseph Dahl MD [STAFF PHYSICIAN] - 11/29/20 10:30 am (Patient will see Alison CACERES for this appointment) Patient Instructions/Handouts: Trimethobenzamide (By mouth), Ondansetron (By mouth), Pantoprazole (By mouth), Gastritis (DC), Acute Nausea and Vomiting (DC) Discharge Disposition: HOME SELF-CARE
== END 2020-11-02 14:30 | disposition home or self-care (01) | DRG 392 ==
LOC: EC 08:32 → 6PED 10:25 → 5NMEDONC 16:32 → OBSVTOIN 10-31 14:27 → 5NMEDONC 10-31 23:02
PROVIDERS: ADMIT Internal Medicine; ATTEND Internal Medicine
PROC: 0DB78ZX Excision of Stomach, Pylorus, Via Natural or Artificial Opening Endoscopic, Diagnostic (ICD-10-PCS; principal; 2020-11-01 08:30)
PROC: 0DB38ZX Excision of Lower Esophagus, Via Natural or Artificial Opening Endoscopic, Diagnostic (ICD-10-PCS; principal; 2020-11-01 08:30)
PROC: 0DB98ZX Excision of Duodenum, Via Natural or Artificial Opening Endoscopic, Diagnostic (ICD-10-PCS; principal; 2020-11-01 08:30)
DX: K29.00 Acute gastritis without bleeding (principal); R11.15 Cyclical vomiting syndrome unrelated to migraine; B96.7 Clostridium perfringens [C. perfringens] as the cause of diseases classified elsewhere; B96.89 Other specified bacterial agents as the cause of diseases classified elsewhere; F12.20 Cannabis dependence, uncomplicated; T40.7X4A Poisoning by cannabis (derivatives), undetermined, initial encounter; R11.2 Nausea with vomiting, unspecified; I49.3 Ventricular premature depolarization; F41.9 Anxiety disorder, unspecified; F17.200 Nicotine dependence, unspecified, uncomplicated; E86.0 Dehydration; K21.9 Gastro-esophageal reflux disease without esophagitis; Z71.51 Drug abuse counseling and surveillance of drug abuser; E83.51 Hypocalcemia; E83.42 Hypomagnesemia; T44.3X5A Adverse effect of other parasympatholytics [anticholinergics and antimuscarinics] and spasmolytics, initial encounter; H53.8 Other visual disturbances; Z82.49 Family history of ischemic heart disease and other diseases of the circulatory system
CPT/HCPCS: 36415; 43239; 70450; 74177; 76705; 80048; 80053; 80306; 81003; 81025; 82140; 82150; 82550; 82553; 82787; 83690; 83735; 84425; 84443; 84478; 84484; 84630; 84702; 85025; 86038; 88305; 93005; 93306; 96361; 96374; 96375; 96376; 99285

== ENCOUNTER 2020-11-03 09:15 | Emergency (ER) | payer OTHER ==
[2020-11-03] MEDS ORDERED: SODIUM CHLORIDE 0.9% 1,000 ML IV STA (09:27)
[2020-11-03] MEDS ORDERED: SODIUM CHLORIDE 0.9% 500 ML 500 ML IV STA (09:27)
[2020-11-03] MEDS ORDERED: METOCLOPRAMIDE 5 MG/ML 2 ML VIAL IVP STA (09:38)
[2020-11-03] MEDS ORDERED: diphenhydrAMINE 50 MG/ML 1 ML VIAL IVP STA (09:38)
--- NOTE | 2020-11-03 09:40 | ED ---
Fall HPI - General Chief Complaint: Fall Stated Complaint: head injury Time Seen by Provider: 11/03/20 09:27 Source: patient, EMS Mode of arrival: EMS Limitations: no limitations - History of Present Illness Initial Comments: 30-year-old female presents emergency Department chief complaint of nausea vomiting. Patient was recently discharged from the hospital yesterday after feeding stay for pancreatitis nausea vomiting. Patient states that she woke up around 6 or vomiting was unable stop states that she could make it downstairs to take her Zofran. Patient states she bent over when she was vomiting and passing out no significant head injury no neck pain, back pain no lacerations. Patient states that she has mild abdominal pain no chest pain she does admit to some palpitations though was evaluated by cardiology on her recent hospitalization known to have multiple PVCs. Patient had syncopal episodes in the past. - Related Data Previous Rx's Medication Instructions Recorded Promethazine Suppository 25 mg RECTAL QID PRN #20 supp 11/03/20 [Phenergan] Allergies Allergy/AdvReac Type Severity Reaction Status Date / Time No Known Allergies Allergy Verified 11/03/20 10:12 Review of Systems ROS Statement: Those systems with pertinent positive or pertinent negative responses have been documented in the HPI. ROS Other: All systems not noted in ROS Statement are negative. Past Medical History Past Medical History: No Reported History Additional Past Medical History / Comment(s): miscarriage, syncope..Pt had syncopal episode when and she had seen bullet casting operator for braycardia..unsure of outcome..pt states "I'm not annabella good with following up with Dr's" History of Any Multi-Drug Resistant Organisms: None Reported Past Surgical History: Cholecystectomy Additional Past Surgical History / Comment(s): labia plas Past Anesthesia/Blood Transfusion Reactions: No Reported Reaction Past Psychological History: Anxiety Smoking Status: Never smoker Past Alcohol Use History: None Reported Past Drug Use History: Marijuana - Past Family History Mother Family Medical History: Hypertension Additional Family Medical History / Comment(s): Lupus Father History Unknown: Yes Family Medical History: Hypertension General Exam Limitations: no limitations General appearance: alert, in no apparent distress Head exam: Present: atraumatic, normocephalic, normal inspection Eye exam: Present: normal appearance, PERRL, EOMI. Absent: scleral icterus, conjunctival injection, periorbital swelling ENT exam: Present: normal exam, normal oropharynx, mucous membranes moist Neck exam: Present: normal inspection, full ROM. Absent: tenderness, meningismus, lymphadenopathy Respiratory exam: Present: normal lung sounds bilaterally. Absent: respiratory distress, wheezes, rales, rhonchi, stridor Cardiovascular Exam: Present: regular rate, normal rhythm, normal heart sounds. Absent: systolic murmur, diastolic murmur, rubs, gallop, clicks GI/Abdominal exam: Present: soft, normal bowel sounds. Absent: distended, tenderness, guarding, rebound, rigid Back exam: Absent: CVA tenderness (R), CVA tenderness (L) Neurological exam: Present: alert, oriented X3, CN II-XII intact Skin exam: Present: warm, dry, intact, normal color. Absent: rash Course Vital Signs 11/03/20 11/03/20 11/03/20 09:18 10:07 11:31 Temperature 98.3 F 98 F Pulse Rate 68 18 L 64 Respiratory 18 18 16 Rate Blood Pressure 119/74 110/88 119/74 O2 Sat by Pulse 100 99 99 Oximetry 11/03/20 13:00 Temperature Pulse Rate 70 Respiratory 16 Rate Blood Pressure 115/79 O2 Sat by Pulse 98 Oximetry Medical Decision Making - Medical Decision Making 30-year-old female presented for nausea vomiting which she had recent hospitalization for. I did review this in detail. Patient had a near syncopal episode. Patient had no sick head injury. Patient was found have mild hypokalemia this was replaced. Patient was well-hydrated. Patient was talked in detail regarding her marijuana use and cyclic vomiting syndrome. Patient did have issues with PVCs and was evaluated by cardiology she did have a run of multiple PVCs though after fluid hydration, antiemetics, potassium replacement symptoms improved. Patient discharged with antiemetics and return parameters were discussed. - Lab Data Result diagrams: 11/03/20 09:45 11/03/20 09:45 Lab Results 11/03/20 11/03/20 11/03/20 Range/Units 09:45 09:45 09:45 WBC 7.5 (3.8-10.6) k/uL RBC 5.46 H (3.80-5.40) m/uL Hgb 15.8 (11.4-16.0) gm/dL Hct 45.7 (34.0-46.0) % MCV 83.7 (80.0-100.0) fL MCH 29.0 (25.0-35.0) pg MCHC 34.7 (31.0-37.0) g/dL RDW 12.3 (11.5-15.5) % Plt Count 215 (150-450) k/uL MPV 8.6 Neutrophils % 72 % Lymphocytes % 20 % Monocytes % 6 % Eosinophils % 1 % Basophils % 0 % Neutrophils # 5.4 (1.3-7.7) k/uL Lymphocytes # 1.5 (1.0-4.8) k/uL Monocytes # 0.4 (0-1.0) k/uL Eosinophils # 0.1 (0-0.7) k/uL Basophils # 0.0 (0-0.2) k/uL PT 11.0 (9.0-12.0) sec INR 1.0 (<1.2) APTT 21.6 L (22.0-30.0) sec Sodium (137-145) mmol/L Potassium (3.5-5.1) mmol/L Chloride (98-107) mmol/L Carbon Dioxide (22-30) mmol/L Anion Gap mmol/L BUN (7-17) mg/dL Creatinine (0.52-1.04) mg/dL Est GFR (CKD-EPI)AfAm (>60 ml/min/1.73 sqM) Est GFR (CKD-EPI)NonAf (>60 ml/min/1.73 sqM) Glucose (74-99) mg/dL Calcium (8.4-10.2) mg/dL Magnesium (1.6-2.3) mg/dL Total Bilirubin (0.2-1.3) mg/dL AST (14-36) U/L ALT (4-34) U/L Alkaline Phosphatase (38-126) U/L Troponin I (0.000-0.034) ng/mL Total Protein (6.3-8.2) g/dL Albumin (3.5-5.0) g/dL Lipase (23-300) U/L Urine Color Light Yellow Urine Appearance Clear (Clear) Urine pH 5.5 (5.0-8.0) Ur Specific [place] 1.008 (1.001-1.035) Urine Protein Negative (Negative) Urine Glucose (UA) Negative (Negative) Urine Ketones 3+ H (Negative) Urine Blood Negative (Negative) Urine Nitrite Negative (Negative) Urine Bilirubin Negative (Negative) Urine Urobilinogen <2.0 (<2.0) mg/dL Ur Leukocyte Esterase Negative (Negative) Urine HCG, Qual (Not Detectd) 11/03/20 11/03/20 11/03/20 Range/Units 09:45 09:45 09:45 WBC (3.8-10.6) k/uL RBC (3.80-5.40) m/uL Hgb (11.4-16.0) gm/dL Hct (34.0-46.0) % MCV (80.0-100.0) fL MCH (25.0-35.0) pg MCHC (31.0-37.0) g/dL RDW (11.5-15.5) % Plt Count (150-450) k/uL MPV Neutrophils % % Lymphocytes % % Monocytes % % Eosinophils % % Basophils % % Neutrophils # (1.3-7.7) k/uL Lymphocytes # (1.0-4.8) k/uL Monocytes # (0-1.0) k/uL Eosinophils # (0-0.7) k/uL Basophils # (0-0.2) k/uL PT (9.0-12.0) sec INR (<1.2) APTT (22.0-30.0) sec Sodium 141 (137-145) mmol/L Potassium 3.4 L (3.5-5.1) mmol/L Chloride 108 H (98-107) mmol/L Carbon Dioxide 17 L (22-30) mmol/L Anion Gap 16 mmol/L BUN 6 L (7-17) mg/dL Creatinine 0.59 (0.52-1.04) mg/dL Est GFR (CKD-EPI)AfAm >90 (>60 ml/min/1.73 sqM) Est GFR (CKD-EPI)NonAf >90 (>60 ml/min/1.73 sqM) Glucose 85 (74-99) mg/dL Calcium 10.2 (8.4-10.2) mg/dL Magnesium 2.1 (1.6-2.3) mg/dL Total Bilirubin 1.9 H (0.2-1.3) mg/dL AST 35 (14-36) U/L ALT 47 H (4-34) U/L Alkaline Phosphatase 77 (38-126) U/L Troponin I <0.012 (0.000-0.034) ng/mL Total Protein 7.5 (6.3-8.2) g/dL Albumin 5.0 (3.5-5.0) g/dL Lipase 73 (23-300) U/L Urine Color Urine Appearance (Clear) Urine pH (5.0-8.0) Ur Specific [place] (1.001-1.035) Urine Protein (Negative) Urine Glucose (UA) (Negative) Urine Ketones (Negative) Urine Blood (Negative) Urine Nitrite (Negative) Urine Bilirubin (Negative) Urine Urobilinogen (<2.0) mg/dL Ur Leukocyte Esterase (Negative) Urine HCG, Qual Not Detected (Not Detectd) Disposition Clinical Impression: Nausea & vomiting, Dehydration, PVCs (premature ventricular contractions) Disposition: HOME SELF-CARE Condition: Stable Instructions (If sedation given, give patient instructions): Dehydration (ED) Additional Instructions: Please return to the Emergency Department if symptoms worsen or any other ann rns. Prescriptions: Promethazine Suppository [Phenergan] 25 mg RECTAL QID PRN #20 supp PRN Reason: Nausea vomiting Is patient prescribed a controlled substance at d/c from ED?: No Referrals: Finn Jones DO [Primary Care Provider] - 1-2 days Time of Disposition: 13:41
[2020-11-03 09:56] LABS: Basophils % (A) 0 %; Eosinophils # (A) 0.1 k/uL (0-0.7); Eosinophils % (A) 1 %; HCT 45.7 % (34.0-46.0); HGB 15.8 gm/dL (11.4-16.0); Lymphocytes # (A) 1.5 k/uL (1.0-4.8); Lymphocytes % (A) 20 %; MCHC 34.7 g/dL (31.0-37.0); MCV 83.7 fL (80.0-100.0); Mean Platelet Volume 8.6; Monocytes # (A) 0.4 k/uL (0-1.0); Monocytes % (A) 6 %; Neutrophils # (A) 5.4 k/uL (1.3-7.7); Neutrophils % (A) 72 %; Platelet Count 215 k/uL (150-450); RBC 5.46 m/uL (3.80-5.40); RDW 12.3 % (11.5-15.5); WBC 7.5 k/uL (3.8-10.6)
[2020-11-03 10:04] LABS: ALT 47 U/L (4-34); AST 35 U/L (14-36); African American GFR (CKD) >90 (>60 ml/min/1.73 sqM); Alkaline Phosphatase 77 U/L (38-126); Anion Gap 16 mmol/L; Blood Urea Nitrogen 6 mg/dL (7-17); Calcium 10.2 mg/dL (8.4-10.2); Carbon Dioxide 17 mmol/L (22-30); Chloride 108 mmol/L (98-107); Glucose 85 mg/dL (74-99); Lipase 73 U/L (23-300); Magnesium 2.1 mg/dL (1.6-2.3); Non-African American GFR(CKD) >90 (>60 ml/min/1.73 sqM); Potassium 3.4 mmol/L (3.5-5.1); Sodium 141 mmol/L (137-145); Total Bilirubin 1.9 mg/dL (0.2-1.3); Total Protein 7.5 g/dL (6.3-8.2)
[2020-11-03 10:30] LABS: Partial Thromboplastin Time 21.6 sec (22.0-30.0)
[2020-11-03 10:52] LABS: Appearance,Urine Clear (Clear); Bilirubin,Urine Negative (Negative); Blood,Urine Negative (Negative); Color,Urine Light Yellow; Glucose,Urine (UA) Negative (Negative); Ketones,Urine 3+ (Negative); Leukocyte Esterase,Urine Negative (Negative); Nitrite,Urine Negative (Negative); PH, Urine 5.5 (5.0-8.0); Protein,Urine Negative (Negative); Specific Gravity,Urine 1.008 (1.001-1.035); Urobilinogen,Urine <2.0 mg/dL (<2.0)
[2020-11-03] MEDS ORDERED: LORazepam 2 MG/ML INJ IV STA (11:30)
[2020-11-03 11:32] VITALS: RESP 16; TEMP 98
[2020-11-03] MEDS ORDERED: POTASSIUM BICARBONATE/CIT AC 20 MEQ TABLET.EFF PO ONE (12:09)
[2020-11-03] MEDS ORDERED: SODIUM CHLORIDE 0.9% 1,000 ML IV ONE (12:17)
[2020-11-03 13:01] VITALS: BP 115/79; PULSE 70
== END 2020-11-03 14:04 | disposition home or self-care (01) ==
LOC: EC 09:15
DX: E86.0 Dehydration (principal); I49.3 Ventricular premature depolarization; R11.2 Nausea with vomiting, unspecified; F12.90 Cannabis use, unspecified, uncomplicated; Z82.49 Family history of ischemic heart disease and other diseases of the circulatory system
CPT/HCPCS: 36415; 93005; 80053; 83690; 83735; 84484; 85025; 85610; 85730; 81003; 81025; 96374; 96375 ×3; 96361 ×2; 96360; 99284; J2060; J1200; J2765; J1790

== ENCOUNTER 2020-11-07 12:53 | Emergency (ER) | payer OTHER ==
[2020-11-07 13:05] VITALS: TEMP 97.6
[2020-11-07] MEDS ORDERED: ONDANSETRON 4 MG/2 ML VIAL IVP STA (13:16)
[2020-11-07] MEDS ORDERED: MORPHINE SULFATE 4 MG/ML SYRINGE IV STA (13:16)
[2020-11-07] MEDS ORDERED: SODIUM CHLORIDE 0.9% 1,000 ML IV STA (13:16)
--- NOTE | 2020-11-07 14:09 | XR ---
EXAMINATION TYPE: XR KUB DATE OF EXAM: 11/07/2020 COMPARISON: NONE HISTORY: Pain TECHNIQUE: One view abdominal series FINDINGS: The osseous structures are intact. The bowel gas pattern is nonspecific. Lung bases are clear. Surg ical clips in the right upper quadrant. No suspicious nodules. IMPRESSION: 1. Nonspecific abdomen.
[2020-11-07] MEDS ORDERED: LORazepam 2 MG/ML INJ IV STA (14:23)
[2020-11-07 14:32] LABS: Glucose,Whole Blood 129 mg/dL (75-99)
[2020-11-07 14:53] LABS: ALT 22 U/L (4-34); AST 24 U/L (14-36); African American GFR (CKD) >90 (>60 ml/min/1.73 sqM); Albumin 4.5 g/dL (3.5-5.0); Alkaline Phosphatase 60 U/L (38-126); Amylase 61 U/L (30-110); Anion Gap 18 mmol/L; Blood Urea Nitrogen 12 mg/dL (7-17); Calcium 9.5 mg/dL (8.4-10.2); Carbon Dioxide 14 mmol/L (22-30); Chloride 110 mmol/L (98-107); Glucose 139 mg/dL (74-99); Lipase 157 U/L (23-300); Non-African American GFR(CKD) >90 (>60 ml/min/1.73 sqM); Potassium 2.9 mmol/L (3.5-5.1); Sodium 142 mmol/L (137-145); Total Bilirubin 1.3 mg/dL (0.2-1.3); Total Protein 6.8 g/dL (6.3-8.2)
[2020-11-07] MEDS ORDERED: POTASSIUM CHLORIDE ER 20 MEQ TAB.ER PO STA (15:21)
--- NOTE | 2020-11-07 15:22 | CT ---
EXAMINATION TYPE: CT brain wo con DATE OF EXAM: 11/07/2020 COMPARISON: 11/02/20 HISTORY: seizure like activity CT DLP: 1052.[address] of the brain was performed. The ventricles, basal cisterns and sulci overlying the cerebral convexities demonstrate a normal appe arance. There is no evidence for intracranial hemorrhage or sulcal effacement. No mass effects are seen. Osseous calvarium is intact. If symptoms persist consider MRI as clinically warranted. IMPRESSION: 1. No acute intracranial process is seen at this time.
[2020-11-07 16:03] LABS: Basophils % (A) 1 %; Eosinophils % (A) 0 %; HCT 45.5 % (34.0-46.0); HGB 15.7 gm/dL (11.4-16.0); Lymphocytes # (A) 1.3 k/uL (1.0-4.8); Lymphocytes % (A) 14 %; MCH 29.7 pg (25.0-35.0); MCHC 34.4 g/dL (31.0-37.0); MCV 86.1 fL (80.0-100.0); Mean Platelet Volume 8.8; Monocytes # (A) 0.4 k/uL (0-1.0); Monocytes % (A) 5 %; Neutrophils % (A) 79 %; Platelet Count 240 k/uL (150-450); RBC 5.28 m/uL (3.80-5.40); RDW 13.1 % (11.5-15.5); WBC 8.8 k/uL (3.8-10.6)
--- NOTE | 2020-11-07 16:11 | ED ---
Nausea/Vomiting/Diarrhea HPI - General Chief complaint: Nausea/Vomiting/Diarrhea Stated complaint: revisit - vomiting Time Seen by Provider: 11/07/20 13:08 Source: patient, RN notes reviewed Mode of arrival: wheelchair Limitations: no limitations - History of Present Illness Initial comments: Patient is a 30-year-old female that presents to the emergency department complaining of nausea and vomiting for one day. She notes she was seen for the same complaint several weeks ago was discharged home due to labs being normal and scans being normal. She did appear to be in moderate discomfort but minimal pain while sitting up in bed during exam and interview. She denied any abdominal medical history other than nausea and vomiting melena hematochezia or hematemesis. She denied any . She denied chest pain first breath headache diarrhea constipation fever fatigue chills. - Related Data Home Medications Medication Instructions Recorded Confirmed Ondansetron Odt [Zofran Odt] 4 mg PO Q8H PRN 11/07/20 11/07/20 Pantoprazole Sodium [Protonix] 40 mg PO DAILY 11/07/20 11/07/20 Previous Rx's Medication Instructions Recorded Promethazine Suppository 25 mg RECTAL QID PRN #20 supp 11/03/20 [Phenergan] Allergies Allergy/AdvReac Type Severity Reaction Status Date / Time No Known Allergies Allergy Verified 11/07/20 15:38 Review of Systems ROS Statement: Those systems with pertinent positive or pertinent negative responses have been documented in the HPI. ROS Other: All systems not noted in ROS Statement are negative. Past Medical History Past Medical History: No Reported History Additional Past Medical History / Comment(s): miscarriage, syncope..Pt had syncopal episode when and she had seen retail pharmacy manager for braycardia..unsure of outcome..pt states "I'm not annabella good with following up with Christopher" History of Any Multi-Drug Resistant Organisms: None Reported Past Surgical History: Cholecystectomy Additional Past Surgical History / Comment(s): labia plas Past Anesthesia/Blood Transfusion Reactions: No Reported Reaction Past Psychological History: Anxiety Smoking Status: Never smoker Past Alcohol Use History: None Reported Past Drug Use History: Marijuana - Past Family History Mother Family Medical History: Hypertension Additional Family Medical History / Comment(s): Lupus Father History Unknown: Yes Family Medical History: Hypertension General Exam Limitations: no limitations General appearance: alert, in no apparent distress, other Head exam: Present: atraumatic, normocephalic, normal inspection Eye exam: Present: normal appearance, PERRL, EOMI. Absent: scleral icterus, conjunctival injection, periorbital swelling Neck exam: Present: normal inspection Respiratory exam: Present: normal lung sounds bilaterally. Absent: respiratory distress, wheezes, rales, rhonchi, stridor Cardiovascular Exam: Present: regular rate, normal rhythm, normal heart sounds. Absent: systolic murmur, diastolic murmur, rubs, gallop, clicks GI/Abdominal exam: Present: soft, normal bowel sounds, other (Generalized discomfort). Absent: distended, tenderness, guarding, rebound, rigid Extremities exam: Present: normal inspection, full ROM, normal capillary refill. Absent: tenderness, pedal edema, joint swelling, calf tenderness Neurological exam: Present: alert, oriented X3 Psychiatric exam: Present: normal affect, normal mood Skin exam: Present: warm, dry, intact, normal color. Absent: rash Course Vital Signs 11/07/20 11/07/20 13:02 15:34 Temperature 97.6 F Pulse Rate 76 64 Respiratory 22 20 Rate Blood Pressure 98/74 128/82 O2 Sat by Pulse 98 100 Oximetry Medical Decision Making - Medical Decision Making 30-year-old female complaining of nausea and vomiting. Labs, 1 L normal saline, 4 mg of morphine, 4 mg Zofran, KUB ordered. Labs all and potassium 2.9, rest of labs unremarkable compared to baseline. X-ray negative for any acute process. CT of the brain ordered to rule out any intracranial process. 40 mEq of potassium ordered for oral intake. Case discussed with Dr. Talamantes, patient can discharge home in stable condition with follow-up to GI specialist. - Lab Data Result diagrams: 11/07/20 14:36 11/07/20 14:36 Lab Results 11/07/20 11/07/20 11/07/20 Range/Units 14:30 14:36 14:36 WBC 8.8 (3.8-10.6) k/uL RBC 5.28 (3.80-5.40) m/uL Hgb 15.7 (11.4-16.0) gm/dL Hct 45.5 (34.0-46.0) % MCV 86.1 (80.0-100.0) fL MCH 29.7 (25.0-35.0) pg MCHC 34.4 (31.0-37.0) g/dL RDW 13.1 (11.5-15.5) % Plt Count 240 (150-450) k/uL MPV 8.8 Neutrophils % 79 % Lymphocytes % 14 % Monocytes % 5 % Eosinophils % 0 % Basophils % 1 % Neutrophils # 7.0 (1.3-7.7) k/uL Lymphocytes # 1.3 (1.0-4.8) k/uL Monocytes # 0.4 (0-1.0) k/uL Eosinophils # 0.0 (0-0.7) k/uL Basophils # 0.0 (0-0.2) k/uL Sodium (137-145) mmol/L Potassium (3.5-5.1) mmol/L Chloride (98-107) mmol/L Carbon Dioxide (22-30) mmol/L Anion Gap mmol/L BUN (7-17) mg/dL Creatinine (0.52-1.04) mg/dL Est GFR (CKD-EPI)AfAm (>60 ml/min/1.73 sqM) Est GFR (CKD-EPI)NonAf (>60 ml/min/1.73 sqM) Glucose (74-99) mg/dL POC Glucose (mg/dL) 129 H (75-99) mg/dL POC Glu Corporate Lawyer ID Rosa Jolly Calcium (8.4-10.2) mg/dL Total Bilirubin (0.2-1.3) mg/dL AST (14-36) U/L ALT (4-34) U/L Alkaline Phosphatase (38-126) U/L Total Protein (6.3-8.2) g/dL Albumin (3.5-5.0) g/dL Amylase (30-110) U/L Lipase (23-300) U/L Urine Color Yellow Urine Appearance Cloudy H (Clear) Urine pH 6.5 (5.0-8.0) Ur Specific Fidelity 1.027 (1.001-1.035) Urine Protein 2+ H (Negative) Urine Glucose (UA) Negative (Negative) Urine Ketones 4+ H (Negative) Urine Blood Negative (Negative) Urine Nitrite Negative (Negative) Urine Bilirubin Negative (Negative) Urine Urobilinogen <2.0 (<2.0) mg/dL Ur Leukocyte Esterase Trace H (Negative) Urine RBC 2 (0-5) /hpf Urine WBC 4 (0-5) /hpf Ur Squamous Epith Cells 7 H (0-4) /hpf Calcium Oxalate Crystal Occasional H (None) /hpf Amorphous Sediment Rare H (None) /hpf Urine Mucus Many H (None) /hpf Urine HCG, Qual (Not Detectd) 11/07/20 11/07/20 Range/Units 14:36 14:36 WBC (3.8-10.6) k/uL RBC (3.80-5.40) m/uL Hgb (11.4-16.0) gm/dL Hct (34.0-46.0) % MCV (80.0-100.0) fL MCH (25.0-35.0) pg MCHC (31.0-37.0) g/dL RDW (11.5-15.5) % Plt Count (150-450) k/uL MPV Neutrophils % % Lymphocytes % % Monocytes % % Eosinophils % % Basophils % % Neutrophils # (1.3-7.7) k/uL Lymphocytes # (1.0-4.8) k/uL Monocytes # (0-1.0) k/uL Eosinophils # (0-0.7) k/uL Basophils # (0-0.2) k/uL Sodium 142 (137-145) mmol/L Potassium 2.9 L (3.5-5.1) mmol/L Chloride 110 H (98-107) mmol/L Carbon Dioxide 14 L (22-30) mmol/L Anion Gap 18 mmol/L BUN 12 (7-17) mg/dL Creatinine 0.58 (0.52-1.04) mg/dL Est GFR (CKD-EPI)AfAm >90 (>60 ml/min/1.73 sqM) Est GFR (CKD-EPI)NonAf >90 (>60 ml/min/1.73 sqM) Glucose 139 H (74-99) mg/dL POC Glucose (mg/dL) (75-99) mg/dL POC Glu Corporate Lawyer ID Calcium 9.5 (8.4-10.2) mg/dL Total Bilirubin 1.3 (0.2-1.3) mg/dL AST 24 (14-36) U/L ALT 22 (4-34) U/L Alkaline Phosphatase 60 (38-126) U/L Total Protein 6.8 (6.3-8.2) g/dL Albumin 4.5 (3.5-5.0) g/dL Amylase 61 (30-110) U/L Lipase 157 (23-300) U/L Urine Color Urine Appearance (Clear) Urine pH (5.0-8.0) Ur Specific Fidelity (1.001-1.035) Urine Protein (Negative) Urine Glucose (UA) (Negative) Urine Ketones (Negative) Urine Blood (Negative) Urine Nitrite (Negative) Urine Bilirubin (Negative) Urine Urobilinogen (<2.0) mg/dL Ur Leukocyte Esterase (Negative) Urine RBC (0-5) /hpf Urine WBC (0-5) /hpf Ur Squamous Epith Cells (0-4) /hpf Calcium Oxalate Crystal (None) /hpf Amorphous Sediment (None) /hpf Urine Mucus (None) /hpf Urine HCG, Qual Not Detected (Not Detectd) - EKG Data -: EKG Interpreted by Md EKG shows normal: sinus rhythm Rate: normal EKG Comments: Ventricular rate 51 bpm, LA interval 108 ms, QRS duration 86 ms, QTC 449 ms, PRT axes 52/39/43. Sinus bradycardia with marked sinus arrhythmia with short LA, nonspecific ST abnormality, abnormal ECG. Disposition Clinical Impression: Nausea & vomiting, Dehydration, Abdominal pain Disposition: HOME SELF-CARE Instructions (If sedation given, give patient instructions): Acute Nausea and Vomiting in Children (ED), Abdominal Pain (ED) Additional Instructions: Please return to the Emergency Department if symptoms worsen or any other concerns. Follow-up with primary care in the next several days. Follow-up with GI specialist in the next several days. Increase oral fluids. Is patient prescribed a controlled substance at d/c from ED?: No Referrals: Finn Jones DO [Primary Care Provider] - 1-2 days Time of Disposition: 16:59
[2020-11-07 16:51] LABS: Amorphous Sediment,Urine Rare /hpf; Appearance,Urine Cloudy (Clear); Bilirubin,Urine Negative (Negative); Blood,Urine Negative (Negative); Calcium Oxalate Crystals,Urine Occasional /hpf; Color,Urine Yellow; Glucose,Urine (UA) Negative (Negative); Ketones,Urine 4+ (Negative); Leukocyte Esterase,Urine Trace (Negative); Mucus,Urine Many /hpf; Nitrite,Urine Negative (Negative); PH, Urine 6.5 (5.0-8.0); Protein,Urine 2+ (Negative); RBC,Urine 2 /hpf (0-5); Specific Gravity,Urine 1.027 (1.001-1.035); Squamous Epithelial Cell,Urine 7 /hpf (0-4); Urobilinogen,Urine <2.0 mg/dL (<2.0); WBC,Urine 4 /hpf (0-5)
[2020-11-07 17:10] VITALS: BP 136/79; PULSE 86; RESP 16
== END 2020-11-07 17:10 | disposition home or self-care (01) ==
LOC: EC 12:53
DX: E86.0 Dehydration (principal); R11.2 Nausea with vomiting, unspecified; R10.84 Generalized abdominal pain; F12.90 Cannabis use, unspecified, uncomplicated; Z82.49 Family history of ischemic heart disease and other diseases of the circulatory system
CPT/HCPCS: 36415; 93005; 80053; 82150; 83690; 85025; 81001; 81025; 74018; 70450; 96374; 96375 ×2; 96361; 99285; J2060; J2270; J2405

== ENCOUNTER 2023-10-09 13:54 | Emergency (ER) | payer OTHER ==
[2023-10-09 14:02] VITALS: PULSE 82; RESP 18; TEMP 98
[2023-10-09 14:38] LABS: Basophils % (A) 1 %; Eosinophils # (A) 0.1 k/uL (0-0.7); Eosinophils % (A) 2 %; HCT 40.3 % (34.0-46.0); HGB 13.8 gm/dL (11.4-16.0); Lymphocytes # (A) 1.6 k/uL (1.0-4.8); Lymphocytes % (A) 22 %; MCHC 34.3 g/dL (31.0-37.0); MCV 87.5 fL (80.0-100.0); Mean Platelet Volume 7.9; Monocytes # (A) 0.3 k/uL (0-1.0); Monocytes % (A) 5 %; Neutrophils # (A) 5.1 k/uL (1.3-7.7); Neutrophils % (A) 71 %; Platelet Count 191 k/uL (150-450); RBC 4.61 m/uL (3.80-5.40); RDW 12.3 % (11.5-15.5); WBC 7.2 k/uL (3.8-10.6)
[2023-10-09 14:57] LABS: ALT 18 U/L (4-34); AST 23 U/L (14-36); African American GFR (CKD) >90 (>60 ml/min/1.73 sqM); Albumin 4.1 g/dL (3.5-5.0); Alkaline Phosphatase 60 U/L (38-126); Anion Gap 9 mmol/L; Blood Urea Nitrogen 8 mg/dL (7-17); Calcium 9.4 mg/dL (8.4-10.2); Carbon Dioxide 18 mmol/L (22-30); Chloride 108 mmol/L (98-107); Glucose 83 mg/dL (74-99); Non-African American GFR(CKD) >90 (>60 ml/min/1.73 sqM); Potassium 3.9 mmol/L (3.5-5.1); Sodium 135 mmol/L (137-145); Total Bilirubin 0.6 mg/dL (0.2-1.3); Total Protein 6.4 g/dL (6.3-8.2)
--- NOTE | 2023-10-09 15:03 | US ---
EXAMINATION TYPE: US OB <= 14 wk twins DATE OF EXAM: 10/09/2023 COMPARISON: NONE CLINICAL INDICATION: Female, 33 years old with history of vaginal bleeding.; brown blood yesterday is pink today, A2 EXAM PERFORMED: OBTA EXAM MEASUREMENTS: GESTATIONAL AGE / DATING Physician Established: (10 weeks/0 days) EDC: 05/06/2024 Dates by LMP: (10 weeks/0 days) EDC: 05/06/2024 Dates by First Scan: No previous this is first scan Dates by Current Scan for Baby A: (10 weeks/6 days) EDC: 05/17/2024 Dates by Current Scan for Baby B: (6 weeks/0 days) EDC: N/A MATERNAL ANATOMY Uterus: 12.1 x 8.6 x 7.2cm Right Ovary: 2.3 x 1.3 x 1.5cm Left Ovary: 2.0 x 1.6 x 1.4cm Post CDS / Adnexa: wnl Presence of free fluid: no Presence of corpus luteal cyst: not seen Presence of subchorionic bleed: no Presence of two separate gestational sacs: yes, sac B smaller then sac A with no fetus seen GESTATION / SURVEY TWIN A CRL: 3.9cm (10wks/6days) MSD: wnl Yolk Sac (normal less than 6mm): not seen Heart Rate: 181 bpm Rhythm: Normal - high end IUP: Viable IUP Nuchal Translucency 10-14wks (normal less than 3mm): 2mm TWIN B CRL: not seen MSD: 1.3cm (6wks/0days) Yolk Sac (normal less than 6mm): not seen IUP: no fetus seen within small sac Date of LMP: 07/31/2023 Beta HcG (if available): pending IMPRESSION: Double gestational sacs with live intrauterine gestation for baby A with ultrasound age 10 weeks 6 da ys.. No pole seen within the gestational sac B alternatively this may represent a subchorionic hemorrhage.
[2023-10-09 15:14] LABS: Appearance,Urine Clear (Clear); Bacteria,Urine Rare /hpf; Bilirubin,Urine Negative (Negative); Blood,Urine Small (Negative); Color,Urine Colorless; Glucose,Urine (UA) Negative (Negative); Ketones,Urine Negative (Negative); Leukocyte Esterase,Urine Trace (Negative); Nitrite,Urine Negative (Negative); Protein,Urine Negative (Negative); RBC,Urine <1 /hpf (0-5); Specific Gravity,Urine 1.014 (1.001-1.035); Squamous Epithelial Cell,Urine 1 /hpf (0-4); Urobilinogen,Urine <2.0 mg/dL (<2.0); WBC,Urine 1 /hpf (0-5)
--- NOTE | 2023-10-09 15:43 | ED ---
Female Urogenital HPI - General Chief complaint: Vaginal Bleeding Stated complaint: 10wks preg, vaginal bleeding Time Seen by Provider: 10/09/23 14:03 Source: patient, RN notes reviewed Mode of arrival: ambulatory Limitations: no limitations - History of Present Illness Initial comments: This is a 33-year-old female who presents to the emergency department for vaginal bleeding in . Patient is and states that she is approximately 10 weeks with twins. She did have an ultrasound at [facility] a couple of weeks ago and was told that both twins had heartbeats, however one was measuring a couple of weeks smaller than the other. When she woke up this morning states that she had a light pink tinge when she wiped followed by a small amount of bleeding. Denies any pain associated with this. She is waiting for her first appointment with an ENERGY SALES BROKER. MD Complaint: vaginal bleeding - Related Data Home Medications Medication Instructions Recorded Confirmed Ondansetron Odt [Zofran Odt] 4 mg PO Q8H PRN 11/07/20 11/07/20 Pantoprazole Sodium [Protonix] 40 mg PO DAILY 11/07/20 11/07/20 Previous Rx's Medication Instructions Recorded Promethazine Suppository 25 mg RECTAL QID PRN #20 supp 11/03/20 [Phenergan] Allergies Allergy/AdvReac Type Severity Reaction Status Date / Time No Known Allergies Allergy Verified 10/09/23 14:02 Review of Systems ROS Statement: Those systems with pertinent positive or pertinent negative responses have been documented in the HPI. ROS Other: All systems not noted in ROS Statement are negative. Past Medical History Past Medical History: No Reported History Additional Past Medical History / Comment(s): miscarriage, syncope..Pt had syncopal episode when and she had seen stock blender for braycardia..unsure of outcome..pt states "I'm not annabella good with following up with Christopher" History of Any Multi-Drug Resistant Organisms: None Reported Past Surgical History: Cholecystectomy Additional Past Surgical History / Comment(s): labia plas Past Anesthesia/Blood Transfusion Reactions: No Reported Reaction Past Psychological History: Anxiety Smoking Status: Never smoker Past Alcohol Use History: None Reported Past Drug Use History: Marijuana - Past Family History Mother Family Medical History: Hypertension Additional Family Medical History / Comment(s): Lupus Father History Unknown: Yes Family Medical History: Hypertension General Exam Limitations: no limitations General appearance: alert, in no apparent distress Head exam: Present: atraumatic, normocephalic, normal inspection Respiratory exam: Present: normal lung sounds bilaterally. Absent: respiratory distress, wheezes, rales, rhonchi, stridor Cardiovascular Exam: Present: regular rate, normal rhythm, normal heart sounds. Absent: systolic murmur, diastolic murmur, rubs, gallop, clicks Neurological exam: Present: alert, oriented X3, CN II-XII intact Psychiatric exam: Present: normal affect, normal mood Skin exam: Present: warm, dry, intact, normal color. Absent: rash Course Vital Signs 10/09/23 10/09/23 13:56 16:40 Temperature 98 F 98 F Pulse Rate 82 82 Respiratory 18 18 Rate Blood Pressure 106/70 110/81 O2 Sat by Pulse 98 98 Oximetry Medical Decision Making - Medical Decision Making This is a 33 year old female who presents to the emergency department for vaginal bleeding in . Was pt. sent in by a medical professional or institution? @ -No Did you speak to anyone other than the patient for history? @ -No Did you review nursing and triage notes? @ -Yes, and I agree, it is accurate with regards to the patient's symptoms. Were old charts reviewed? @ -No Differential Diagnosis? @ -Differential Vaginal Bleeding: Spontaneous , threatened , molar , ectopic , incompetent cervix, placenta previa, uterine rupture, dysfunctional uterine bleeding, hemorrhage, uterine fibroids, malignancy, coagulopathy, PID, cervicitis, adenomyosis, vaginal trauma, this is not meant to be an all-in clusive list. EKG interpreted by me (3pts min.)? @ -Not obtained X-rays interpreted by me (1pt min.)? @ -Not obtained CT interpreted by me (1pt min.)? @ -Not obtained U/S interpreted by me (1pt. min.)? @ -OB US obtained. My interpretation identifies 2 gestational sacs with 1 single live IUP. What testing was considered but not performed? (CT, X-rays, U/S, labs)? Why? @ -None What meds were considered but not given? Why? @ -None Did you discuss the management of the patient with other professionals? @ -Yes, Dr. Becerra, ENERGY SALES BROKER, who advised that the patient can continue her care as scheduled. Did you reconcile home meds? @ -No Was smoking cessation discussed for >3mins.? @ -No Was critical care preformed (if so, how long)? @ -No Were there social determinants of health that impacted care today? How? (Homel essness, low income, unemployed, alcoholism, drug addiction, transportation, low edu. Level, literacy, decrease access to med. care, residential, rehab)? @ -No Was there de-escalation of care discussed even if they declined? (Discuss DNR or withdrawal of care, Hospice)? @ -No What co-morbidities impacted this encounter? (DM, HTN, Smoking, COPD, CAD, Can cer, CVA, Hep., AIDS, mental health diagnosis, sleep apnea, morbid obesity)? @ - Was patient admitted / discharged? @ -Discharged. Lab work unremarkable. Urinalysis negative for signs of infection. Patient is Rh+ and no RhoGAM is indicated. Obstetrics ultrasound obtained demonstrating a double gestational sac with live intrauterine gestation for baby A measuring approximately 10 weeks. There was no pole seen in gestational sac B. Patient reports a previous ultrasound a couple of weeks ago demonstrating 2 live intrauterine pregnancies, both of which had strong heartbeats at that time. This is suggestive of demise in gestational sac B. Given that this was a twin , case discussed with Dr. Becerra, ENERGY SALES BROKER, who advised that she can simply continue her care as scheduled. This was discussed with the patient who expresses understanding. She was discharged home in stable condition and will follow-up with her ENERGY SALES BROKER. Undiagnosed new problem with uncertain prognosis? @ -None Drug Therapy requiring intensive monitoring for toxicity (Heparin, Nitro, Insulin, Cardizem)? @ -None Were any procedures done? @ -None Diagnosis/symptom? @ -Twin with loss/retention of 1 fetus Acute, or Chronic, or Acute on Chronic? @ -Acute Uncomplicated (without systemic symptoms) or Complicated (systemic symptoms)? @ -Uncomplicated Side effects of treatment? @ -None Exacerbation, Progression, or Severe Exacerbation] @ -Not applicable Poses a threat to life or bodily function? @ -This may impact her mental health Return precautions reviewed in depth, the patient is instructed to return to the emergency department with any new, worsening, or concerning symptoms. Patient verbalized understanding. This case was discussed in detail with the attending ED physician, Dr. Mas. Presentation, findings, and treatment plan discussed in detail as well. - Lab Data Result diagrams: 10/09/23 14:16 10/09/23 14:16 Lab Results 10/09/23 10/09/23 10/09/23 Range/Units 14:16 14:16 14:16 WBC 7.2 (3.8-10.6) k/uL RBC 4.61 (3.80-5.40) m/uL Hgb 13.8 (11.4-16.0) gm/dL Hct 40.3 (34.0-46.0) % MCV 87.5 (80.0-100.0) fL MCH 30.0 (25.0-35.0) pg MCHC 34.3 (31.0-37.0) g/dL RDW 12.3 (11.5-15.5) % Plt Count 191 (150-450) k/uL MPV 7.9 Neutrophils % 71 % Lymphocytes % 22 % Monocytes % 5 % Eosinophils % 2 % Basophils % 1 % Neutrophils # 5.1 (1.3-7.7) k/uL Lymphocytes # 1.6 (1.0-4.8) k/uL Monocytes # 0.3 (0-1.0) k/uL Eosinophils # 0.1 (0-0.7) k/uL Basophils # 0.0 (0-0.2) k/uL Sodium 135 L (137-145) mmol/L Potassium 3.9 (3.5-5.1) mmol/L Chloride 108 H (98-107) mmol/L Carbon Dioxide 18 L (22-30) mmol/L Anion Gap 9 mmol/L BUN 8 (7-17) mg/dL Creatinine 0.38 L (0.52-1.04) mg/dL Est GFR (CKD-EPI)AfAm >90 (>60 ml/min/1.73 sqM) Est GFR (CKD-EPI)NonAf >90 (>60 ml/min/1.73 sqM) Glucose 83 (74-99) mg/dL Calcium 9.4 (8.4-10.2) mg/dL Total Bilirubin 0.6 (0.2-1.3) mg/dL AST 23 (14-36) U/L ALT 18 (4-34) U/L Alkaline Phosphatase 60 (38-126) U/L Total Protein 6.4 (6.3-8.2) g/dL Albumin 4.1 (3.5-5.0) g/dL HCG, Quant 00471.1 mIU/mL Urine Color Urine Appearance (Clear) Urine pH (5.0-8.0) Ur Specific Sterling (1.001-1.035) Urine Protein (Negative) Urine Glucose (UA) (Negative) Urine Ketones (Negative) Urine Blood (Negative) Urine Nitrite (Negative) Urine Bilirubin (Negative) Urine Urobilinogen (<2.0) mg/dL Ur Leukocyte Esterase (Negative) Urine RBC (0-5) /hpf Urine WBC (0-5) /hpf Ur Squamous Epith Cells (0-4) /hpf Urine Bacteria (None) /hpf Blood Type O Positive Blood Type Recheck O Pos Bld Type Recheck Status No Antibody Screen NEGATIVE Spec Expiration Date 10/12/2023 - 231510/09/23 Range/Units 14:47 WBC (3.8-10.6) k/uL RBC (3.80-5.40) m/uL Hgb (11.4-16.0) gm/dL Hct (34.0-46.0) % MCV (80.0-100.0) fL MCH (25.0-35.0) pg MCHC (31.0-37.0) g/dL RDW (11.5-15.5) % Plt Count (150-450) k/uL MPV Neutrophils % % Lymphocytes % % Monocytes % % Eosinophils % % Basophils % % Neutrophils # (1.3-7.7) k/uL Lymphocytes # (1.0-4.8) k/uL Monocytes # (0-1.0) k/uL Eosinophils # (0-0.7) k/uL Basophils # (0-0.2) k/uL Sodium (137-145) mmol/L Potassium (3.5-5.1) mmol/L Chloride (98-107) mmol/L Carbon Dioxide (22-30) mmol/L Anion Gap mmol/L BUN (7-17) mg/dL Creatinine (0.52-1.04) mg/dL Est GFR (CKD-EPI)AfAm (>60 ml/min/1.73 sqM) Est GFR (CKD-EPI)NonAf (>60 ml/min/1.73 sqM) Glucose (74-99) mg/dL Calcium (8.4-10.2) mg/dL Total Bilirubin (0.2-1.3) mg/dL AST (14-36) U/L ALT (4-34) U/L Alkaline Phosphatase (38-126) U/L Total Protein (6.3-8.2) g/dL Albumin (3.5-5.0) g/dL HCG, Quant mIU/mL Urine Color Colorless Urine Appearance Clear (Clear) Urine pH 7.0 (5.0-8.0) Ur Specific Sterling 1.014 (1.001-1.035) Urine Protein Negative (Negative) Urine Glucose (UA) Negative (Negative) Urine Ketones Negative (Negative) Urine Blood Small H (Negative) Urine Nitrite Negative (Negative) Urine Bilirubin Negative (Negative) Urine Urobilinogen <2.0 (<2.0) mg/dL Ur Leukocyte Esterase Trace H (Negative) Urine RBC <1 (0-5) /hpf Urine WBC 1 (0-5) /hpf Ur Squamous Epith Cells 1 (0-4) /hpf Urine Bacteria Rare H (None) /hpf Blood Type Blood Type Recheck Bld Type Recheck Status Antibody Screen Spec Expiration Date - Radiology Data Radiology results: report reviewed, image reviewed Disposition Clinical Impression: Twin preg w/ loss/retention one fetus, antepartum complication Disposition: HOME SELF-CARE Instructions (If sedation given, give patient instructions): Miscarriage (ED) Additional Instructions: Return to the emergency department with any new, worsening, or concerning symptoms. Contact your ENERGY SALES BROKER regarding the suspected miscarriage in one of fetuses. Is patient prescribed a controlled substance at d/c from ED?: No Referrals: None,Stated [Primary Care Provider] - 1-2 days Time of Disposition: 16:34
[2023-10-09 16:42] VITALS: BP 110/81
== END 2023-10-09 16:40 | disposition home or self-care (01) ==
LOC: EC 13:54
DX: O31.21X1 Continuing pregnancy after intrauterine death of one fetus or more, first trimester, fetus 1 (principal); Z3A.10 10 weeks gestation of pregnancy
CPT/HCPCS: 36415; 76801; 76802; 76813; 80053; 81001; 84702; 85025; 86850; 86900; 86901; 99284

== ENCOUNTER 2024-04-03 16:28 | Outpatient (CLI) | payer OTHER ==
[2024-05-04 16:25] VITALS: BP 119/65; PULSE 98; RESP 18; TEMP 97.9
--- NOTE | 2024-05-09 11:23 | P.MSEPDOC ---
Presenting Problems - Arrival Data Date of Arrival on Unit: 04/03/25 Time of Arrival on Unit: 16:30 Mode of Transport: Ambulatory - Complaint OB-Reason for Admission/Chief Complaint: Possible Onset of Labor Comment: states she was having contractions every 8 min but now are spacing out. states these have been going on for past few days Medical History - Information : 4 Para: 3 Term: 3 : 0 Abortions: Spontaneous or Elective: 0 Number of Living Children: 3 - Gestational Age Gestational Age by MIREILLE (wks/days): 39 Weeks and 5 Days Review of Systems - Review of Systems Constitutional: No problems Breast: No problems ENT: No problems Cardiovascular: No problems Respiratory: No problems Gastrointestinal: No problems Genitourinary: No problems Musculoskeletal: No problems Neurological: No problems Skin: No problems Vital Signs - Temperature Temperature: 97.9 F - Pulse Right Brachial Pulse Rate: 98 Pulse Assessment Method: Automatic Cuff - Respirations Respiratory Rate: 18 Oxygen Delivery Method: Room Air O2 Sat by Pulse Oximetry: 98 - Blood Pressure Right Arm Blood Pressure: 119/65 Blood Pressure Mean: 83 Blood Pressure Source: Automatic Cuff Medical Screen Scoring - Cervical Exam Dilation (cm): 0 Effacement (%): 0 Station: -3 Membranes: Intact - Uterine Contractions Intensity: Absent Resting: Soft to palpation - Assessment - Baby A Baseline FHR: 140 Heart Rate - NICHD Category: Category I (Normal) NST: Reactive Physician Notification - Physician Notified Physician Notified Date: 04/03/25 Physician Notified Time: 17:30 Physician: Faraz Antunez Order Received: Yes - Notification Comment Comment: D/C Home and follow up with provider at [facility] as previously scheduled Maternal Triage Index - Maternal Triage Index Presenting for scheduled procedure w/no complaint: No - Stat/Priority 1 Stat Priority 1: No - Urgent/Priority 2 Urgent Priority 2: No - Prompt/Priority 3 Prompt Priority 3: No - Non-Urgent/Priority 4 Non-Urgent Priority 4: Yes Criteria Met for Priority 4: contractions irregular Disposition - Disposition OB Disposition: Discharge to home Discharge Date: 04/03/25 Discharge Time: 17:40 I agree with the RN Medical Screening Exam: Yes Physician's MSE Comment: I have neither seen nor examined the patient. Case reviewed; plan agreed upon as documented in EMR&OBIX.: Yes Diagnosis: RELATED CONDITIONS, UNSPECIFIED, THIRD TRIMESTER
== END 2024-04-03 17:40 ==
LOC: FBPOP 16:28
PROVIDERS: ATTEND Obstetrics & Gynecology
DX: O26.93 Pregnancy related conditions, unspecified, third trimester (principal); Z3A.39 39 weeks gestation of pregnancy
CPT/HCPCS: 59025; G0463; 99213

== ENCOUNTER 2024-08-09 23:10 | Emergency (ER) | payer OTHER ==
[2024-08-09 23:16] VITALS: RESP 18
[2024-08-10] MEDS: SODIUM CHLORIDE 0.9% 1,000 ML IV ONE (01:22)
--- NOTE | 2024-08-10 01:24 | ED ---
Abdominal Pain HPI - General Source: patient Mode of arrival: ambulatory Limitations: no limitations <Lisa Echavarria - Last Filed: 08/11/24 00:36> <Gary Salas - Last Filed: 08/16/24 09:04> - General Chief Complaint: Abdominal Pain Stated Complaint: abd pain Time Seen by Provider: 08/09/24 23:25 - History of Present Illness Initial Comments: 34 year old female presenting to ED tonight due to abdominal pain for a few weeks. She had a vaginal delivery in April and had Nexplanon placed a month ago. She has had worsening RLQ pain that she thought may be related to but pain worsened today with sharp uncomfortable pain today with diarrhea, heartburn, nausea and vomiting episode today. 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 She had a fever 2-3 days ago but it was related to a cold illness running through family. She was worried about her appendix. Denies hematemesis. She had follow-up with OBGYN today. Denies other concerns or associating symptoms. (Lisa Echavarria) - Related Data Home Medications Medication Instructions Recorded Confirmed Ondansetron Odt [Zofran Odt] 4 mg PO Q8H PRN 11/07/20 11/07/20 Pantoprazole Sodium [Protonix] 40 mg PO DAILY 11/07/20 11/07/20 Previous Rx's Medication Instructions Recorded Promethazine Suppository 25 mg RECTAL QID PRN #20 supp 11/03/20 [Phenergan] Allergies Allergy/AdvReac Type Severity Reaction Status Date / Time No Known Allergies Allergy Verified 08/09/24 23:12 Review of Systems ROS Other: All systems not noted in ROS Statement are negative. Constitutional: Denies: fever, chills Cardiovascular: Denies: chest pain, palpitations Gastrointestinal: Reports: abdominal pain, nausea, vomiting, diarrhea. Denies: constipation Genitourinary: Denies: urgency, dysuria Musculoskeletal: Denies: back pain Skin: Denies: rash, lesions Neurological: Denies: headache, weakness <Lisa Echavarria - Last Filed: 08/11/24 00:36> ROS Other: All systems not noted in ROS Statement are negative. <Gary Salas - Last Filed: 08/16/24 09:04> ROS Statement: Those systems with pertinent positive or pertinent negative responses have been documented in the HPI. Past Medical History Past Medical History: No Reported History Additional Past Medical History / Comment(s): miscarriage, syncope..Pt had syncopal episode when and she had seen cushion cover inspector for braycardia..unsure of outcome..pt states "I'm not annabella good with following up with Christopher" History of Any Multi-Drug Resistant Organisms: None Reported Past Surgical History: Cholecystectomy Additional Past Surgical History / Comment(s): labia plas Past Anesthesia/Blood Transfusion Reactions: No Reported Reaction Past Psychological History: Anxiety Smoking Status: Former smoker Past Alcohol Use History: None Reported Past Drug Use History: None Reported - Past Family History Mother Family Medical History: Hypertension Additional Family Medical History / Comment(s): Lupus Father History Unknown: Yes Family Medical History: Hypertension <Lisa Echavarria - Last Filed: 08/11/24 00:36> General Exam Limitations: no limitations General appearance: alert, in no apparent distress Respiratory exam: Present: normal lung sounds bilaterally. Absent: respiratory distress, wheezes Cardiovascular Exam: Present: regular rate, normal rhythm GI/Abdominal exam: Present: soft, tenderness (RLQ). Absent: distended, guarding, rebound Neurological exam: Present: alert, oriented X3 Psychiatric exam: Present: normal affect, normal mood Skin exam: Present: warm, dry, intact <ItaliaLisa - Last Filed: 08/11/24 00:36> Course Vital Signs 08/09/24 08/10/24 08/10/24 23:12 02:42 06:15 Temperature 97.5 F L 98.2 F Pulse Rate 78 67 75 Respiratory 18 18 18 Rate Blood Pressure 110/82 119/82 108/80 O2 Sat by Pulse 98 99 98 Oximetry Medical Decision Making - Lab Data Result diagrams: 08/10/24 01:12 08/10/24 01:12 <Lisa Echavarria - Last Filed: 08/11/24 00:36> - Lab Data Result diagrams: 08/10/24 01:12 08/10/24 01:12 <Gary Salas - Last Filed: 08/16/24 09:04> - Medical Decision Making Was pt. sent in by a medical professional or institution (MORRIS Sharif, SIDE SEAM ENVELOPE MACHINE OPERATOR, urgent care, hospital, or [facility]...) When possible be specific @ -[No] Did you speak to anyone other than the patient for history (EMS, parent, family, police, friend...)? What history was obtained from this source @ -[No] Did you review nursing and triage notes (agree or disagree)? Why? @ -[I reviewed and agree with nursing and triage notes] Were old charts reviewed (outside hosp., previous admission, EMS record, old EKG, old radiological studies, urgent care reports/EKG's, [facility] records)? Report findings @ -[No old charts were reviewed] Differential Diagnosis? @ -[chest pain, altered mental status, abdominal pain women, abdominal pain men, vaginal bleeding, weakness, fever, dyspnea, syncope, headache, dizziness, GI bleed, back pain, seizure, CVA, palpatations, mental health, musculoskeletal] EKG interpreted by me (3pts min.). @ -[As above] X-rays interpreted by me (1pt min.). @ -[None done] CT interpreted by me (1pt min.). @ -[None done] U/S interpreted by me (1pt. min.). @ -[None done] What testing was considered but not performed or refused? (CT, X-rays, U/S, labs)? Why? @ -[None] What meds were considered but not given or refused? Why? @ -[None] Did you discuss the management of the patient with other professionals (professionals i.e. MORRIS Sharif, SIDE SEAM ENVELOPE MACHINE OPERATOR, lab, RT, psych nurse, director of social work, fitness specialist, teacher, founder and chief technical officer, director case management)? Give summary @ -Case was discussed with ED attending Dr. Salas. Was smoking cessation discussed for >3mins.? @ -[No] Was critical care preformed (if so, how long)? @ -[No] Were there social determinants of health that impacted care today? How? (Homelessness, low income, unemployed, alcoholism, drug addiction, transportation, low edu. Level, literacy, decrease access to med. care, nursing home, rehab)? @ -[No] Was there de-escalation of care discussed even if they declined (Discuss DNR or withdrawal of care, Hospice)? DNR status @ -[No] What co-morbidities impacted this encounter? (DM, HTN, Smoking, COPD, CAD, Cancer, CVA, ARF, Chemo, Hep., AIDS, mental health diagnosis, sleep apnea, morbid obesity)? @ -[None] Was patient admitted / discharged? Hospital course, mention meds given and route, prescriptions, significant lab abnormalities, going to OR and other perti nent info. @ -[hospital course] Undiagnosed new problem with uncertain prognosis? @ -[No] Drug Therapy requiring intensive monitoring for toxicity (Heparin, Nitro, Insulin, Cardizem)? @ -[No] Were any procedures done? @ -[No] Diagnosis/symptom? @ -[default] Acute, or Chronic, or Acute on Chronic? @ -[default] Uncomplicated (without systemic symptoms) or Complicated (systemic symptoms)? @ -[default] Side effects of treatment? @ -[No] Exacerbation, Progression, or Severe Exacerbation? @ -[No] Poses a threat to life or bodily function? How? (Chest pain, [place], [place], pneumonia, PE, COPD, DKA, ARF, appy, cholecystitis, CVA, Diverticulitis, Homicidal, Suicidal, threat to staff... and all critical care pts) @ -[No] (Lisa Echavarria) I personally saw the patient and performed the critical portion of the service. I discussed the patient care with the resident. I directed management, care planning and final disposition of the patient. This includes, but not limited to, review of all lab work, radiological studies, EKG's, consultations, vital signs, and nursing notes. EKG interpreted by me (3pts min.) @ [as above] X-Rays interpreted by me (1 pt min.) @ [none] CT interpreted by me ( 1pt min.) @ [The patient had CT scan of the abdomen and pelvis that I interpreted as negative for free air, obstruction, or other acute surgical condition U/S interpreted by me (1 pt min.) @ [none] Critical care time of [0] minutes excluding separately billable procedures was spent in conjunction with critical care activities provided by the Resident and Attending simultaneously. I was present during [no procedures] for all critical portions of the procedure and as immediately available to furnish service during the entire procedure. (Gary Salas) - Lab Data Lab Results 08/10/24 08/10/24 08/10/24 Range/Units 01:12 01:12 01:12 WBC 7.15 (4.50-10.00) 10*3/uL RBC 5.17 (4.10-5.20) 10*6/uL Hgb 14.4 (12.0-15.0) g/dL Hct 42.3 (37.2-46.3) % MCV 81.8 (80.0-97.0) fL MCH 27.9 (27.0-32.0) pg MCHC 34.0 (32.0-37.0) g/dL Plt Count 245 (140-440) 10*3/uL MPV 10.1 (9.5-12.2) fL Immature Gran % (Auto) 0.3 % Neutrophils % 49.8 % Lymphocytes % 39.7 % Monocytes % 8.1 % Eosinophils % 1.8 % Basophils % 0.3 % Immature Gran # 0.02 (0.00-0.04) 10*3/uL Neutrophils # 3.56 (1.80-7.70) 10*3/uL Lymphocytes # 2.84 (0.90-5.00) 10*3/uL Monocytes # 0.58 (0.20-1.00) 10*3/uL Eosinophils # 0.13 (0.04-0.35) 10*3/uL Basophils # 0.02 (0.00-0.10) 10*3/uL Sodium 138 (137-145) mmol/L Potassium 4.2 (3.5-5.1) mmol/L Chloride 105 (98-107) mmol/L Carbon Dioxide 20 L (22-30) mmol/L Anion Gap 13 mmol/L BUN 14 (7-17) mg/dL Creatinine 0.61 (0.52-1.04) mg/dL Est GFR (CKD-EPI)AfAm >90 (>60 ml/min/1.73 sqM) Est GFR (CKD-EPI)NonAf >90 (>60 ml/min/1.73 sqM) Glucose 97 (74-99) mg/dL Plasma Lactic Acid Tre (0.7-2.0) mmol/L Calcium 10.4 H (8.4-10.2) mg/dL Total Bilirubin 0.6 (0.2-1.3) mg/dL AST 25 (14-36) U/L ALT 24 (4-34) U/L Alkaline Phosphatase 100 (38-126) U/L Total Protein 7.5 (6.3-8.2) g/dL Albumin 4.8 (3.5-5.0) g/dL Amylase 57 (30-110) U/L Lipase 154 (23-300) U/L Urine Color Colorless Urine Appearance Clear (Clear) Urine pH 6.0 (5.0-8.0) Ur Specific [place] 1.013 (1.001-1.035) Urine Protein Negative (Negative) Urine Glucose (UA) Negative (Negative) Urine Ketones Negative (Negative) Urine Blood Negative (Negative) Urine Nitrite Negative (Negative) Urine Bilirubin Negative (Negative) Urine Urobilinogen <2.0 (<2.0) mg/dL Ur Leukocyte Esterase Negative (Negative) Urine HCG, Qual (Not Detectd) 08/10/24 08/10/24 Range/Units 01:12 01:12 WBC (4.50-10.00) 10*3/uL RBC (4.10-5.20) 10*6/uL Hgb (12.0-15.0) g/dL Hct (37.2-46.3) % MCV (80.0-97.0) fL MCH (27.0-32.0) pg MCHC (32.0-37.0) g/dL Plt Count (140-440) 10*3/uL MPV (9.5-12.2) fL Immature Gran % (Auto) % Neutrophils % % Lymphocytes % % Monocytes % % Eosinophils % % Basophils % % Immature Gran # (0.00-0.04) 10*3/uL Neutrophils # (1.80-7.70) 10*3/uL Lymphocytes # (0.90-5.00) 10*3/uL Monocytes # (0.20-1.00) 10*3/uL Eosinophils # (0.04-0.35) 10*3/uL Basophils # (0.00-0.10) 10*3/uL Sodium (137-145) mmol/L Potassium (3.5-5.1) mmol/L Chloride (98-107) mmol/L Carbon Dioxide (22-30) mmol/L Anion Gap mmol/L BUN (7-17) mg/dL Creatinine (0.52-1.04) mg/dL Est GFR (CKD-EPI)AfAm (>60 ml/min/1.73 sqM) Est GFR (CKD-EPI)NonAf (>60 ml/min/1.73 sqM) Glucose (74-99) mg/dL Plasma Lactic Acid Tre 1.0 (0.7-2.0) mmol/L Calcium (8.4-10.2) mg/dL Total Bilirubin (0.2-1.3) mg/dL AST (14-36) U/L ALT (4-34) U/L Alkaline Phosphatase (38-126) U/L Total Protein (6.3-8.2) g/dL Albumin (3.5-5.0) g/dL Amylase (30-110) U/L Lipase (23-300) U/L Urine Color Urine Appearance (Clear) Urine pH (5.0-8.0) Ur Specific [place] (1.001-1.035) Urine Protein (Negative) Urine Glucose (UA) (Negative) Urine Ketones (Negative) Urine Blood (Negative) Urine Nitrite (Negative) Urine Bilirubin (Negative) Urine Urobilinogen (<2.0) mg/dL Ur Leukocyte Esterase (Negative) Urine HCG, Qual Not Detected (Not Detectd) Disposition <Lisa Echavarria - Last Filed: 08/11/24 00:36> Is patient prescribed a controlled substance at d/c from ED?: No <Gary Salas - Last Filed: 08/16/24 09:04> Clinical Impression: Abdominal pain Disposition: HOME SELF-CARE Condition: Good Instructions (If sedation given, give patient instructions): Abdominal Pain (ED) Referrals: Nonstaff,Physician [Primary Care Provider] - 1-2 days
[2024-08-10 01:29] LABS: Basophils # (A) 0.02 10*3/uL (0.00-0.10); Basophils % (A) 0.3 %; Eosinophils # (A) 0.13 10*3/uL (0.04-0.35); Eosinophils % (A) 1.8 %; HCT 42.3 % (37.2-46.3); HGB 14.4 g/dL (12.0-15.0); Lymphocytes # (A) 2.84 10*3/uL (0.90-5.00); Lymphocytes % (A) 39.7 %; MCH 27.9 pg (27.0-32.0); MCV 81.8 fL (80.0-97.0); Mean Platelet Volume 10.1 fL (9.5-12.2); Monocytes # (A) 0.58 10*3/uL (0.20-1.00); Monocytes % (A) 8.1 %; Neutrophils # (A) 3.56 10*3/uL (1.80-7.70); Neutrophils % (A) 49.8 %; Platelet Count 245 10*3/uL (140-440); RBC 5.17 10*6/uL (4.10-5.20); RDW 12.8 % (11.5-14.5); WBC 7.15 10*3/uL (4.50-10.00)
[2024-08-10 02:13] LABS: ALT 24 U/L (4-34); AST 25 U/L (14-36); African American GFR (CKD) >90 (>60 ml/min/1.73 sqM); Albumin 4.8 g/dL (3.5-5.0); Alkaline Phosphatase 100 U/L (38-126); Amylase 57 U/L (30-110); Anion Gap 13 mmol/L; Appearance,Urine Clear (Clear); Bilirubin,Urine Negative (Negative); Blood Urea Nitrogen 14 mg/dL (7-17); Blood,Urine Negative (Negative); Calcium 10.4 mg/dL (8.4-10.2); Carbon Dioxide 20 mmol/L (22-30); Chloride 105 mmol/L (98-107); Color,Urine Colorless; Glucose 97 mg/dL (74-99); Glucose,Urine (UA) Negative (Negative); Ketones,Urine Negative (Negative); Leukocyte Esterase,Urine Negative (Negative); Lipase 154 U/L (23-300); Nitrite,Urine Negative (Negative); Non-African American GFR(CKD) >90 (>60 ml/min/1.73 sqM); Potassium 4.2 mmol/L (3.5-5.1); Protein,Urine Negative (Negative); Sodium 138 mmol/L (137-145); Specific Gravity,Urine 1.013 (1.001-1.035); Total Bilirubin 0.6 mg/dL (0.2-1.3); Total Protein 7.5 g/dL (6.3-8.2); Urobilinogen,Urine <2.0 mg/dL (<2.0)
--- NOTE | 2024-08-10 04:22 | CT ---
EXAM: CT Abdomen and Pelvis With Intravenous Contrast CLINICAL HISTORY: ITS.REASON CT Reason: RLQ pain TECHNIQUE: Axial computed tomography images of the abdomen and pelvis with intravenous contrast. CTDI is 19.7 mGy and DLP is 973.2 mGy-cm. This CT exam was performed using one or more of the following dose reduction techniques: automated exposure control, adjustment of the mA and/or kV according to patient size, and/or use of iterative reconstruction technique. COMPARISON: No relevant prior studies available. FINDINGS: Lung bases: Unremarkable. No mass. No consolidation. ABDOMEN: Liver: Hepatic steatosis. Gallbladder and bile ducts: Cholecystectomy. No ductal dilation. Pancreas: Unremarkable. No mass. No ductal dilation. Spleen: Unremarkable. No splenomegaly. Adrenals: Unremarkable. No mass. Kidneys and ureters: Unremarkable. No solid mass. No hydronephrosis. Stomach and bowel: Unremarkable. No obstruction. No mucosal thickening. PELVIS: Appendix: No findings to suggest acute appendicitis. Bladder: Unremarkable. No mass. Reproductive: Unremarkable as visualized. ABDOMEN and PELVIS: Intraperitoneal space: Unremarkable. No free air. No significant fluid collection. Bones/joints: No acute fracture. No dislocation. Soft tissues: Unremarkable. Vasculature: Unremarkable. No abdominal aortic aneurysm. Lymph nodes: Unremarkable. No enlarged lymph nodes. IMPRESSION: No acute findings in the abdomen or pelvis. Normal appendix.
[2024-08-10 06:16] VITALS: BP 108/80; PULSE 75; TEMP 98.2
== END 2024-08-10 06:16 | disposition home or self-care (01) ==
LOC: EC 23:10
DX: R10.31 Right lower quadrant pain (principal); Z87.891 Personal history of nicotine dependence
CPT/HCPCS: 36415; 80053; 82150; 83605; 83690; 85025; 81003; 81025; 74177; 99284; 96360; Q9967